=== PATIENT | male | born 1960 | race Caucasian/White ===

== ENCOUNTER 2022-08-28 07:23 | Emergency (ER) | payer BC, SELFPAY ==
[2022-08-28 07:31] VITALS: BP 184/89; PULSE 62; RESP 16; TEMP 37; O2SAT 99
[2022-08-28] MEDS: FLUORESCEIN SOD 1 MG/STRIP (07:45)
[2022-08-28] MEDS: TETRACAINE HCL 0.5% OPHTH SOLN 4 ML BTL 1 DROP (07:45)
--- NOTE | 2022-08-28 07:53 | ED.EYEPROB ---
HPI - Eye Problem General Chief complaint: Eye Problems Stated complaint: FB in right eye Time Seen by Provider: 08/28/22 07:24 Source: patient, RN notes reviewed and old records reviewed Mode of arrival: ambulatory Limitations: no limitations History of Present Illness HPI Narrative: This is a 62 year old male who presents for evaluation of right eye irritation this morning. He states he was sleeping with his CPAP on when he woke up at 230 am feeling right eye irritation and watering right eye. He feels like something is in his right upper lid. He denies blurred vision. He denies any injury. He does not do any work that could cause foreign body to go in eye. Related Data Home Medications Medication Instructions Recorded Confirmed aspirin 81 mg tablet,delayed 81 mg PO DAILY 04/23/19 07/29/19 release (Adult Aspirin Regimen) atorvastatin 80 mg tablet 80 mg PO QPM 04/23/19 07/29/19 clopidogrel 75 mg tablet 75 mg PO DAILY 04/23/19 07/29/19 escitalopram oxalate 10 mg tablet 10 mg PO DAILY 04/23/19 07/29/19 (Lexapro) pantoprazole 40 mg tablet,delayed 40 mg PO QAM 04/23/19 07/29/19 release quinapril 40 mg tablet 40 mg PO DAILY 04/23/19 07/29/19 Allergies Allergy/AdvReac Type Severity Reaction Status Date / Time No Known Allergies Allergy Verified 08/28/22 07:24 Review of Systems Review of Systems: All systems reviewed & are unremarkable except as noted in HPI and below PMFSH Past Medical History Medical History (Updated 08/28/22 @ 08:02 by Harleen Huerta MD) Hypertension Type 2 diabetes mellitus with hyperglycemia Surgical History Surgical History H/O vasectomy Family History Family History Father Family history of heart disease in male family member before age 55 Diabetes mellitus, Onset Age: 56 Family history of obesity, Onset Age: 56 Hypertension, Onset Age: 56 Acute myocardial infarction, Onset Age: 57 Mother Family history of obesity Patient's mother is in good health Other Cerebrovascular accident Family history of cardiovascular disease Family history of congestive heart failure Family history of malignant neoplasm Family history of seizure disorder Social History Social History Smoking status: Current some day smoker Tobacco type: cigars Alcohol intake: current Exam Const: General: healthy appearing, no acute distress and alert Nutritional Appearance: well nourished Orientation/consciousness: patient oriented x3 HENMT: Head: normal to inspection Face and sinus: normal facial exam Eyes: Alignment and Position: alignment normal Conjunctivae: conjunctival abnormality right conjunctival injection Cornea: fluorescein used (negative uptake) Pupils: Equal, round and reactive pupils present EOM: EOMs intact bilaterally Other: no foreign body Resp: Effort & Inspection: normal respiratory effort Skin: General skin exam: normal color Rashes: no rashes Wounds: no wounds Neuro: General: patient oriented x3, moves all extremities and CN's II-XI intact bilaterally Psych: Mental Status: mental status grossly normal Affect: normal affect Attitude: cooperative Course Reevaluation(s) Reevaluation #1: I discussed with patient no foreign body or no abrasion. Will treat with antibiotic ointment Date: 08/28/22 Time: 07:55 Vital Signs Vital signs: Vital Signs Temperature 98.6 F 08/28/22 07:31 Pulse Rate 62 08/28/22 07:31 Respiratory Rate 16 08/28/22 07:31 Blood Pressure 184/89 H 08/28/22 07:31 Pulse Oximetry 99 08/28/22 07:31 Oxygen Delivery Room Air 08/28/22 07:31 Temperature 98.6 F 08/28/22 07:31 Pulse Rate 62 08/28/22 07:31 Respiratory Rate 16 08/28/22 07:31 Blood Pressure 184/89 H 08/28/22 07:31 Pulse Oximetry 99 08/28/22 07:31 Oxyge
== END 2022-08-28 08:08 | disposition home or self-care (01) ==
PROVIDERS: Emergency Provider General Practice; PCP Family Medicine
DX: H10.31 Unspecified acute conjunctivitis, right eye (principal); I10 Essential (primary) hypertension; E11.9 Type 2 diabetes mellitus without complications; F17.290 Nicotine dependence, other tobacco product, uncomplicated; Z79.84 Long term (current) use of oral hypoglycemic drugs; Z79.4 Long term (current) use of insulin; Z79.82 Long term (current) use of aspirin
CPT/HCPCS: 99283

== ENCOUNTER 2022-11-22 09:27 | Outpatient (CLI) | payer BC, SELFPAY ==
[2022-11-22 11:01] LABS: Iron 59 ug/dL (49-181)
[2022-11-22 11:11] LABS: Percent Iron Saturation 16 % (20-50)
== END 2022-11-22 09:28 | disposition home or self-care (01) ==
LOC: ANHLAB 09:29
PROVIDERS: PCP Family Medicine; Visit Provider Internal Medicine Pulmonary Disease
DX: M25.561 Pain in right knee (principal); M25.562 Pain in left knee
CPT/HCPCS: 36415; 82728; 83540; 83550

== ENCOUNTER 2023-08-16 11:35 | Outpatient (CLI) | payer BC, SELFPAY ==
[2023-08-16 13:17] LABS: Basophils Absolute Auto 0.1 K/mm3 (0.0-0.1); Basophils Percent Auto 0.6 % (0.2-1.2); Eosinophils Absolute Auto 0.3 K/mm3 (0-0.3); Eosinophils Percent Auto 3.7 % (0-4.4); Hematocrit 44.2 % (42.0-52.0); Hemoglobin 15.5 g/dL (14.0-18.0); Immature Granulocyte Absolute 0.04 K/mm3 (0.00-0.031); Immature Granulocyte Percent A 0.5 % (0-0.5); Lymphocytes Absolute Auto 2.79 K/mm3 (0.9-3.2); Lymphocytes Percent Auto 32.3 % (18.3-44.2); Mean Corpuscular HGB Conc 35.1 g/dl (32-36); Mean Corpuscular Hemoglobin 31.5 pg (26-34); Mean Corpuscular Volume 89.8 fl (80-100); Mean Platelet Volume 10.1 fl (7.4-10.4); Monocytes Absolute Auto 0.6 K/mm3 (0.1-0.6); Monocytes Percent Auto 6.8 % (2.6-8.5); Neutrophils Absolute Auto 4.9 K/mm3 (1.3-6.7); Neutrophils Percent Auto 56.1 % (45.5-73.1); Platelet Count Result 270 k/mm3 (150-375); Red Blood Count 4.92 M/mm3 (4.6-6.20); Red Cell Distribution Width 13.6 % (11.5-14.5); White Blood Count 8.7 K/mm3 (4.5-10.0)
[2023-08-16 14:12] LABS: MALB Creatinine Ratio 66.1 mg/g (0-30); Microalbumin Urine Random 62.8 mg/L (0-16.7)
[2023-08-16 18:25] LABS: Hemoglobin A1C 11.2 % (<5.7)
== END 2023-08-16 11:36 | disposition home or self-care (01) ==
LOC: ANHLAB 11:39
PROVIDERS: PCP Family Medicine; Visit Provider Family Medicine
DX: E11.65 Type 2 diabetes mellitus with hyperglycemia (principal); I10 Essential (primary) hypertension; Z00.00 Encounter for general adult medical examination without abnormal findings
CPT/HCPCS: 36415; 82043; 83036; 85025

== ENCOUNTER 2024-09-15 09:01 | Emergency (ER) | payer BC, SELFPAY ==
--- NOTE | ~2024-09-15 | XR_ITS ---
XR chest 1V portable 09/15/2024 09:42 Indication: Nausea and vomiting. Shortness of breath. Procedure: AP portable chest Comparison: 07/10/2018 Findings: Heart size normal. No focal air space disease, pulmonary edema, pleural effusion or suspect ed pneumothorax. Impression: 1: No acute cardiopulmonary disease. Reviewed, dictated and finalized at location A. Impression: 1: No acute cardiopulmonary disease.
--- NOTE | ~2024-09-15 | CT_ITS ---
EXAMINATION: CT abdomen pelvis w con DATE: 09/15/2024 13:08 INDICATION: Intractable vomiting TECHNIQUE: Computed tomography (CT) of the abdomen and pelvis was performed without intravenous contr ast. The dose-length product was 668.09 mGy-cm. Automated exposure control and iterative reconstructi on technique were employed. COMPARISON: CT dated 06/22/2013. FINDINGS: Lung bases unremarkable. Heart size normal. No significant pleural or pericardial effusion. Fatty infiltration of the liver. The spleen, pancreas, adrenal glands and kidneys are unremarkable. Gallbladder is present. There is atherosclerosis of the aorta. No aneurysm. Moderate lumbar spondylos is. Nonobstructive bowel gas pattern. IMPRESSION: 1. No acute abdominal abnormality. Reviewed, dictated and finalized at location A.
[2024-09-15 09:07] VITALS: BP 166/84; PULSE 84; RESP 16; TEMP 36.8; O2SAT 98
--- NOTE | 2024-09-15 09:16 | ECG_ITS ---
Test Date: 2024-09-15 09:38:55 Measurements Intervals [place] Rate: 75 P: 32 DC: 199 QRS: -11 QRSD: 101 T: 21 QT: 408 QTc: 458 Interpretive Statements SINUS RHYTHM WITH FREQUENT VENTRICULAR PREMATURE COMPLEXES POSSIBLE RIGHT VENTRICULAR CONDUCTION DELAY [RSR (QR) IN V1/V2] ABNORMAL RHYTHM ECG No previous ECG available for comparison Electronically Signed On 09-16-2024 07:59:08 CDT by Adeel Clark M.D.
--- OUTSIDE RECORDS SUMMARY | 2024-09-15 09:20 | XMS_ITS | Encounter Summary ---
Author Organization [facility] Address [address] [place] [address] Care Team Providers Care Manager Recruitment Name Role Phone Norm Lockett MD Primary Care Provider Reason for Visit * Reason Onset Date Comments Missed Visit 08/23/2022 Due to his misse d visit I left a message on patient's voicemail of the call back number if he wishes to reschedule . Encounter Details Date Type Department Care Team (Late st Contact Info) Description 08/23/2022 Documentation [facility] Physical [facility] [address] [address] Giovana Preston, PT Missed Visit (Due to his missed visit I left a message on patient's voicemail of the call back number if he wishes to reschedule .) Social History Tobacco Use Types Packs/Day Years Used Date Smoking Tobacco: Light Smoker Cigars Smokeless Tobacco: Never Alcohol Use Standard Drinks/Week Comments Yes 0 (1 standard drink = 0.6 oz pur e alcohol) social AUDIT-C Answer Date Recorded Q1: How often do you have a drink containing alc ohol? 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
--- OUTSIDE RECORDS SUMMARY | 2024-09-15 09:20 | XMS_ITS | Referral Summary ---
Author Organization [facility] Address [address] [place] [id number] Care Team Providers Care Computerized Mill Mill Recorder Name Role Phone Norm Lockett MD Primary Care Provider [phone] Encounters Date Type Department Care Team Description 07/10/2024 Telephone [facility] Family Medicine at [address] [place] [address] Norm Lockett MD 1ST no show letter from Last 3 Months Allergies No known active allergies Medications clopidogreL (PLAVIX) 75 mg tablet TAKE 1 TABLET(75 MG) BY MOUTH DAILY 90 tablet 3 3 Active escitalopram (LEXAPRO) 10 mg tablet TAKE 1 TABLET(10 MG) BY MOUTH DAILY 90 tablet 1 4 Active lancets 28 gauge misc Test daily up to 4 times daily or as directed by provider. Brand can be selected per pharmacy coverage and patient proference. 400 each 3 4 Active aspirin 81 mg enteric coated tablet Take 1 tablet (81 mg total) by mouth daily 30 tablet 11 4 01/31/20 25 Active alcohol swabs pads, medicated Test daily up to 4 times daily or as directed by provider. Brand can be selected per pharmacy coverage and patient proference. 400 each 3 4 Active blood-glucose sensor (FreeStyle Priscilla 3 Sensor) device Use for BG monitoring 2 each 3 5 Active insulin glargine (BASAGLAR) 100 unit/mL (3 mL) pen for injection Inject 60 Units under the skin daily 54 mL 3 5 Active pen needle, diabetic (BD Ultra-Fine Short Pen Needle) 31 gauge x /16 needleIndicatio ns:Type 2 diabetes mellitus with hyperglycemia, without long-term current use of insulin (HCC) Use to inject insulin under the skin once daily. 100 each 11 5 Active sildenafiL (VIAGRA) 100 mg tablet 1/2 to 1 30 minutes prior sex 10 tablet 2 5 Active tirzepatide (Mounjaro) 10 mg/0.5 mL pen injector injection Inject 0.5 mL (10 mg total) under the skin once a week 2 mL 11 5 Active omeprazole (PriLOSEC) 20 mg capsule TAKE 1 CAPSULE(20 MG) BY MOUTH DAILY 90 capsule 5 Active atorvastatin (LIPITOR) 80 mg tablet TAKE 1 TABLET(80 MG) BY MOUTH DAILY 100 tablet 1 5 Active lisinopriL (PRINIVIL,ZESTR IL) 20 mg tablet TAKE 1 TABLET(20 MG) BY MOUTH DAILY 100 tablet 5 Active metFORMIN XR (GLUCOPHAGE XR) 500 mg 24 hr tablet TAKE 2 TABLETS(1000 MG) BY MOUTH TWICE DAILY 400 tablet 5 Active Active Problems Problem Noted Date Diagnosed Date Hyperlipidemia 01/05/2024 Microalbuminuria 01/05/2024 Arthralgia of both knees 08/23/2022 Assessment & Plan (08/23/2022 2:25 PM CDT): I have ordered an iron and ferritin level. PLMD (periodic limb movement disorder) 3 Assessment & Plan (02/08/2024 3:19 PM CASE MANAGEMENT COORDINATOR): Asymptomatic Assessment & Plan (12/13/2022 10:17 AM CDT): The patient states that his legs are occasionally restless at night when he sleeps. Assessment & Plan (08/23/2022 2:25 PM CDT): The patient denies that his limbs are waking him up at night. The patient states that his was telling him that his limbs do move however it is getting better with CPAP therapy. Type 2 diabetes mellitus with hyperglycemia 05/30 Assessment & Plan (12/21/2022 4:38 PM CDT): Hba1c was Lab Results Component Value Date HGBA1C 12.1 12/21/2022 today, indicating very poor DM control, with poor insight into the condition. Goal Hba1c under 7 and blood glucose 110-150 was explained Diet and exercise were advised ; low carb diet, advised, as well 20 min daily aerobic / resistance exercise Prevention and treatment of hyypoglcyemia were discussed with the patient Blood glucose monitoring : start CGM with a FSL ( pt could not have it work with his phone, so rx for the sensor and reader were sent ) Adjustment to medications: The need for prandial insulin was explained Stay on Basaglar , 60 units at bedtime Start Humalog, ( Mealtime insulin ) , before lunch and dinner 10 units before lunch and dinner If your sugars are over 200, take 15 units . If your sugars are over 300, take 20 units Continue with Metformin HORACE (obstructive sleep apnea) 12/28/2021 Assessment & Plan (02/08/2024 3:19 PM CASE MANAGEMENT COORDINATOR): Due to the patient not using the CPAP machine for approximately 1 year, I have ordered the patient in-home nocturnal polysomnogram as required by his insurance. The patient would prefer not completing an in-lab study. I will order the patient an auto titrating CPAP after the obstructive sleep apnea diagnosis is reconfirmed. Assessment & Plan (12/13/2022 10:16 AM CDT): The patient will continue to wear CPAP at 13 cm water pressure while sleeping. The patient did have his pressure decreased at his last visit. The patient's DME is [employer]. The patient is agreeable to resume the use of his CPAP. Assessment & Plan (08/23/2022 2:26 PM CDT): Due to the patient's mask leaking I will decrease the patient's CPAP pressure to 13 cm water pressure. The patient's DME is [employer]. Assessment & Plan (04/15/2022 2:31 PM CASE MANAGEMENT COORDINATOR): The patient will complete an in-home nocturnal polysomnogram. The patient would like an auto titrating CPAP after rediagnosis of HORACE and he would prefer to use the Tamtron. History of CVA in adulthood 04/23/2020 Assessment & Plan (06/08/2021 11:10 AM CDT): Continues plavix and aspirin daily. Essential hypertension 04/19/2019 Assessment & Plan (06/23/2022 7:51 AM CDT): Quinapril on backorder. BP borderline elevated today off meds. Will switch to lisinopril 20 mg daily. Assessment & Plan (06/08/2021 11:09 AM CDT): Well controlled. Continue current regimen. Gastroesophageal reflux disease without esophagi tis 04/19/2019 RAF (generalized anxiety disorder) 04/19/2019 Resolved Problems Problem Noted Date Diagnosed Date Resolved Date Hypertension associated with type 2 diabetes mellitus 03/02/2023 03/22/2023 Snoring 01/14/2022 04/15/2022 Assessment & Plan (01/14/2022 4:10 PM CASE MANAGEMENT COORDINATOR): The patient presents with snoring and daytime hypersomnia. I have recommended proceeding with a nocturnal polysomnogram with a split night protocol if necessary and no MSLT. Diabetic neuropathy 08/18/2018 04/21/19 Assessment & Plan (06/08/2021 11:13 AM CDT): Poorly controlled. A1C 13.8. Discussed importance of improving sugars. He will increase levemir to 60 units daily and also start taking his metformin XR 1000 mg twice daily instead of once daily. Stressed importance of checking sugars twice daily. He will send me glucose readings in 2 weeks through [facility]. He will get his eyes checked and have them send me a copy of report. Labs in 3 months per orders. He declines referral to diabetic education. 1800 calorie ADA diet given to patient today. Immunizations Immunization Administration Dates Next Due Influenza, Unspecified 11/29/2023(Deferr ed: Patient Refused),12/17/2022(Deferred: Patient Refused),12/17/2021(Deferred: Patient Refused),11/28/2020(Deferred: Patient Refused),04/23/2020(Deferred: Patient Refused) Tdap 09/10/2015 Social History Tobacco Use Types Packs/Day Years Used Date Smoking Tobacco: Light Smoker Cigars Smokeless Tobacco: Never Tobacco Cessation:Ready to Q uit: No; Counseling Given: No Alcohol Use Standard Drinks/Week Comments Yes 0 (1 standard drink = 0.6 oz pur e alcohol) social AUDIT-C Answer Date Recorded Q1: How often do you have a drink containing alc ohol? Monthly or less 03/26/2024 Q2: How many drinks containi ng alcohol do you have on a typical day when you are drinking? 1 or 2 03/26/2024 Frequency of Binge Drinking Not on file 03/01 PHQ-2 Answer Date Recorded PHQ-2 Total Score (If total score is 3 or more points, staff should administer the PHQ-9) 0 09/20/2023 Sex and Gender Information Value Date Recorded Sex Assigned at Not on file Legal Sex Male 12:40 AM CASE MANAGEMENT COORDINATOR Gender Identity Not on file Sexual Orientation Not on file Last Filed Vital Signs Vital Sign Reading Time Taken Comments Blood Pressure 157/91 04/12/2024 12:45 PM CASE MANAGEMENT COORDINATOR Pulse 67 04/12/2024 12:45 PM CASE MANAGEMENT COORDINATOR Temperature 36.9 C (98.4 F) 04/12/2024 12:45 PM CASE MANAGEMENT COORDINATOR Respiratory Rate 18 03/26/2024 9:16 AM CASE MANAGEMENT COORDINATOR Oxygen Saturation 99% 03/26/2024 9:16 AM CASE MANAGEMENT COORDINATOR Inhaled Oxygen Concentration - - Weight 86.7 kg (191 lb 3.2 oz) 04/12/2024 12:45 PM CASE MANAGEMENT COORDINATOR Height 175.3 cm (5' 9) 04/12/2024 12:45 PM CASE MANAGEMENT COORDINATOR Body Mass Index 28.24 04/12/2024 12:45 PM CASE MANAGEMENT COORDINATOR Plan of Treatment Not on file Procedures Procedure Name Priority Date/Time Associated Diagnosis Comments DIABETIC EYE EXAM Routine 05/22/2024 POCT HEMOGLOBIN A1C Routine 04/12/2024 1 2:52 PM CASE MANAGEMENT COORDINATOR Type 2 diabetes mellitus with hyperglycemia, unspecified whether termination clerk insulin use (HCC) ALBUMIN CREATININE RATIO, URINE Routine 11/03/2023 1:16 PM CDT Type 2 diabetes mellitus without complication, without long-term current use of insulin (HCC) COMPREHENSIVE METABOLIC PANEL Routine 11/03/2023 1:13 PM CDT Type 2 diabetes mellitus with hyperglycemia, without long-term current use of insulin (HCC) LIPID PANEL Routine 11/03/2023 1:13 PM CDT Type 2 diabetes mellitus with hyperglycemia, without long-term current use of insulin (HCC) PSA SCREEN Routine 11/03/2023 1:13 PM CDT Prostate cancer screening COLONOSCOPY Routine 09/21/2023 from Last 3 Months or Most Recently Relevant to Health Maintenance Results * Diabetic Eye Exam (05/22/2024) Historical Provider HEALTH MAINTENANCE Final Result * POCT hemoglobin A1c (04/12/2024 12:52 PM CASE MANAGEMENT COORDINATOR) Hemoglobin A1C, POC 9.5 4.0 - 5.6 % Blood 04/12/2024 12:5 2 PM CASE MANAGEMENT COORDINATOR Aleks Boogie MD POINT OF CARE TEST ORDERABLES F inal Result * (ABNORMAL) Albumin Creatinine Ratio, Urine (11/03/2023 1:16 PM CDT) Creatinine, ur 177 20 - 320 mg/dL [facility] Microalbumin, ur 12.8 See Note: mg/dL [facility] Comment: Reference Range: Reference Range Not established Microalbumin/creat ratio 72(H) <30 mg/g creat [facility] Comment: The ADA defines abnormalities in albumin excretion as follows: Albuminuria Category Result (mg/g creatinine) Normal to Mildly increased <30 Moderately increased 30-299 Severely increased > OR = 300 The ADA recommends that at least two of three specimens collected within a 3-6 month period be abnormal before considering a patient to be within a diagnostic category. Urine 11/03/2023 1:16 PM CDT 11/03/2023 1:23 PM CDT Narrative [facility] - 11/04/2023 12:46 PM CDT FASTING:YES FASTING: YES Norm Lockett MD LAB URINE ORDERABLES Final Re sult Performing Organization Address [facility] de Phone Number [facility] [address] [place] [address] * PSA screen (11/03/2023 1:13 PM CDT) PSA 1.65 < OR = 4.00 ng/mL [facility] Comment: The total PSA value from this assay system is standardized against the WHO standard. The test result will be approximately 20% lower when compared to the equimolar-standardized total PSA (Morgan Rani). Comparison of serial PSA results should be interpreted with this fact in mind. This test was performed using the Siemens chemiluminescent method. Values obtained from different assay methods cannot be used interchangeably. PSA levels, regardless of value, should not be interpreted as absolute evidence of the presence or absence of disease. Blood 11/03/2023 1:13 PM CDT 11/03/2023 1:14 PM CDT Narrative [facility] - 11/05/2023 1:29 AM CDT FASTING:YES FASTING: YES Norm Lockett MD LAB BLOOD ORDERABLES Final Re sult Performing Organization Address [facility] de Phone Number [facility] [address] [place] [address] * Lipid panel (11/03/2023 1:13 PM CDT) Cholesterol 161 <200 mg/dL [facility] HDL 44 > OR = 40 mg/dL [facility] Triglycerides 98 <150 mg/dL [facility] LDL 98 mg/dL (calc) [facility] Comment: Reference range: <100 Desirable range <100 mg/dL for primary prevention; <70 mg/dL for patients with CHD or diabetic patients with > or = 2 CHD risk factors. LDL-C is now calculated using the Anna calculation, which is a validated novel method providing better accuracy than the Friedewald equation in the estimation of LDL-C. Tashi ARREOLA et al. NATALEE. 2013;310(19): 6539-2833 (http://education.GROUNDFLOOR/faq/OSZ140) Chol/HDL ratio 3.7 <5.0 (calc) [facility] Non-HDL, (LDL+VLDL) 117 <130 mg/dL (calc) [facility] Comment: For patients with diabetes plus 1 major ASCVD risk factor, treating to a non-HDL-C goal of <100 mg/dL (LDL-C of <70 mg/dL) is considered a therapeutic option. Blood 11/03/2023 1:13 PM CDT 11/03/2023 1:14 PM CDT Narrative [facility] - 11/05/2023 1:29 AM CDT FASTING:YES FASTING: YES Norm Lockett MD LAB BLOOD ORDERABLES Final Re sult [facility] [address] [place] [address] * (ABNORMAL) Comprehensive metabolic panel (11/03/2023 1:13 PM CDT) [facility] Glucose 243(H) 65 - 99 mg/dL [facility] Comment: Fasting reference interval For someone without known diabetes, a glucose value >125 mg/dL indicates that they may have diabetes and this should be confirmed with a follow-up test. BUN 19 7 - 25 mg/dL [facility] Creatinine 0.89 0.70 - 1.35 mg/dL [facility] eGFR 97 > OR = 60 mL/min/1.7 3m2 [facility] BUN/creat ratio SEE NOTE: 6 - 22 (calc) [facility] Comment: Not Reported: BUN and Creatinine are within reference range. Sodium 135 135 - 146 mmol/L [facility] Potassium, pl 4.2 3.5 - 5.3 mmol/L [facility] Chloride 99 98 - 110 mmol/L [facility] CO2 26 20 - 32 mmol/L [facility] Calcium 9.6 8.6 - 10.3 mg/dL [facility] Protein, sr 6.3 6.1 - 8.1 g/dL [facility] Albumin 4.1 3.6 - 5.1 g/dL [facility] GLOBULIN 2.2 1.9 - 3.7 g/dL (calc) [facility] Alb/glob ratio 1.9 1.0 - 2.5 (calc) [facility] Bilirubin, total 0.7 0.2 - 1.2 mg/dL [facility] Alk phos 65 35 - 144 U/L [facility] AST 19 10 - 35 U/L [facility] ALT (SGPT) 21 9 - 46 U/L [facility] Blood 11/03/2023 1:13 PM CDT 11/03/2023 1:14 PM CDT Narrative [facility] - 11/05/2023 1:29 AM CDT FASTING:YES FASTING: YES Norm Lockett MD LAB BLOOD ORDERABLES Final Re sult [facility] [address] [place] [address] * Colonoscopy (09/21/2023) Anatomical Region Laterality Modality Other Historical Provider ENDOSCOPY PROCEDURES [place] l Result from Last 3 Months or Most Recently Relevant to [place] [address] [place] [address] [facility] Care Teams Computerized Mill Mill Recorder Relationship Specialty Start Date End Date Norm Lockett MD PCP - General Family Medicine 04/09/19
--- OUTSIDE RECORDS SUMMARY | 2024-09-15 09:20 | XMS_ITS | Clinical Summary ---
Author Organization [facility] Address [address] [place] [id number] Care Team Providers Care Match Up Person Name Role Phone Norm Lockett MD Primary Care Provider [phone] Allergies No known active allergies Medications clopidogreL [...] Ultra-Fine Short Pen Needle) 31 gauge x 5/16 needleIndicatio ns:Type 2 diabetes mellitus with hyperglycemia, without long-term current use of insulin (HCC) Use to inject insulin under the skin once daily. 100 each 11 03/26/202 5 Active sildenafiL (VIAGRA) 100 mg tablet 1/2 to 1 30 minutes prior sex 10 tablet 2 Active tirzepatide (Mounjaro) 10 mg/0.5 mL pen [...] TABLET(20 MG) BY MOUTH DAILY 100 tablet Active metFORMIN XR (GLUCOPHAGE XR) 500 mg 24 hr tablet TAKE 2 TABLETS(1000 MG) BY MOUTH TWICE DAILY 400 tablet 5 Active Active Problems Problem Noted Date Diagnosed Date Hyperlipidemia 01/05/2024 Microalbuminuria 01/05/2024 Arthralgia of both knees 08/23/2022 Assessment & Plan (08/23/2022 2:25 PM CDT): I have ordered an iron and ferritin level. PLMD (periodic limb movement disorder) Assessment & Plan (02/08/2024 3:19 PM WATER TAXI BOAT MATE): Asymptomatic Assessment & Plan (12/13/2022 10:17 AM [...] 12/28/2021 Assessment & Plan (02/08/2024 3:19 PM WATER TAX[employer] BOAT MATE): Due to the patient not using the [...] [employer]. Assessment & Plan (04/15/2022 2:31 PM WATER TAXI BOAT MATE): The patient will complete an in-home nocturnal polysomnogram. The patient would like an auto titrating CPAP after rediagnosis of HORACE and he would prefer to use the DME company [employer]. History of CVA in adulthood 04/23/2020 Assessment [...] 04/15/2022 Assessment & Plan (01/14/2022 4:10 PM WATER TAXI BOAT MATE): The patient presents with snoring and daytime [...] me glucose readings in 2 weeks through MyChart. He will get his eyes checked and have them send me a copy of report. Labs in 3 months per orders. He declines referral to diabetic education. 1800 calorie ADA diet given to patient today. Encounters Date Type Department Care Team Description 07/10/2024 Telephone [facility] Family Medicine at [address] [place] [address] Norm Lockett MD 1ST no show letter from Last 3 Months Immunizations Immunization Administration Dates Next Due Influenza, Unspecified 11/29/2023(Deferr ed: Patient Refused),12/17/2022(Deferred: Patient Refused),12/17/2021(Deferred: Patient Refused),11/28/2020(Deferred: Patient Refused),04/23/2020(Deferred: Patient Refused) Tdap 09/10/2015 Surgical History Surgery Date Site/Laterality Comments VASECTOMY 02/29/2004 - 02/27/2005 HERNIA REPAIR 02/29/2008 - 02/27/2009 Medical History Medical History Date Comments Diabetes mellitus (HCC) Neuropathy in diabetes (HCC) Gastric reflux Gout Hypertension Family History Medical History Relation Name Comments Diabetes Father No Known Problems Maternal Grandfather No Known Problems Maternal Grandmother Diabetes Mother No Known Problems Paternal Grandfather No Known Problems Paternal Grandmother Cancer Sister 1 Diabetes Sister 2 No Known Problems Sister 3 Relation Name Status Comments Father Maternal Grandfather Maternal Grandmother Mother Paternal Grandfather Paternal Grandmother Sister 1 Alive Sister 2 Alive Sister 3 Alive Social History Tobacco Use Types Packs/Day Years [...] on file Legal Sex Male 12:40 AM WATER TAXI BOAT MATE Gender Identity Not on file Sexual Orientation Not on file Obstetrics History Last Filed Vital Signs Vital Sign Reading Time Taken Comments Blood Pressure 157/91 04/12/2024 12:45 PM WATER TAXI BOAT MATE Pulse 67 04/12/2024 12:45 PM WATER TAXI BOAT MATE Temperature 36.9 C (98.4 F) 04/12/2024 12:45 PM WATER TAXI BOAT MATE Respiratory Rate 18 03/26/2024 9:16 AM WATER TAXI BOAT MATE Oxygen Saturation 99% 03/26/2024 9:16 AM WATER TAXI BOAT MATE Inhaled Oxygen Concentration - - Weight 86.7 kg (191 lb 3.2 oz) 04/12/2024 12:45 PM WATER TAXI BOAT MATE Height 175.3 cm (5' 9) 04/12/2024 12:45 PM WATER TAXI BOAT MATE Body Mass Index 28.24 04/12/2024 12:45 PM WATER TAXI BOAT MATE Plan of Treatment Health Maintenance Due Date Last Done Comments Hepatitis C Screening 1960 Hepatitis B Screening 05/21/1979 Pneumococcal vaccine <65 (1 of 2 - PCV) 1980 Zoster Vaccine (1 of 2) 05/21/2011 Foot Exam 12/28/2022 12/28/2021, 12/28/2021 Depression Screening 09/19/2024 09/20/2023, 06/29/2022, 06/22/2022, Additional history exists Regular Well Visit/Exam 18-64 09/19/2024 09/20/2023, 06/08/2021 Hemoglobin A1C 10/10/2024 04/12/2024, 11/28, 11/03/2023, Additional history exists Albumin Creatinine Ratio, Urine 11/02/2024 , 08/09/2022 Lipid Panel 11/02/2024 11/03/2023, 05/0 03/2022, 01/04/2022, Additional history exists eGFR 11/02/2024 11/03/2023, 05/0 03/2022, 01/04/2022, Additional history exists Dilated Eye Exam 05/22/2025 05/22/2024, , 07/06/2023 DTaP/Tdap/Td Vaccine (2 - Td or Tdap) 09/09/2025 09/10/2015 Prostate Cancer Screening-PSA 11/02/2025, 06/29/2022, 01/04/2022, Additional history exists Colon Cancer Screening-Colonoscopy 09/20/2028 09/21/2023, 08/01/2017 Colon Cancer Screening-CT Colonography Discontinued 09/21/2023, 08/01/2017 Colon Cancer Screening-DNA Stool Discontinued 09/21/19, 08/01/2017 Colon Cancer Screening-FIT Discontinued 09/21/2023, Colon Cancer Screening-Sigmoidoscopy Discontinued 09/21/2023, 08/01/2017 Influenza Vaccine Discontinued Procedures Procedure Name Priority Date/Time Associated Diagnosis Comments DIABETIC EYE EXAM Routine 05/22/2024 POCT HEMOGLOBIN A1C Routine 04/12/2024 1 2:52 PM WATER TAXI BOAT MATE Type 2 diabetes mellitus with hyperglycemia, unspecified whether usp insulin use (HCC) ALBUMIN CREATININE RATIO, URINE [...] Maintenance Results * Diabetic Eye Exam (05/22/2024) Andrea Provider HEALTH MAINTENANCE Final Result * POCT hemoglobin A1c (04/12/2024 12:52 PM WATER TAXI BOAT MATE) Hemoglobin A1C, POC 9.5 4.0 - 5.6 % Blood 04/12/2024 12:5 2 PM WATER TAXI BOAT MATE Aleks Boogie MD POINT OF CARE TEST [...] ORDERABLES Final Re sult Performing Organization Address [facility] de Phone Number [facility] [address] [place] [address] * PSA screen (11/03/2023 1:13 PM CDT) PSA 1.65 < OR = 4.00 ng/mL [id number] Comment: The total PSA value from [...] ORDERABLES Final Re sult Performing Organization Address [facility] de Phone Number [facility] [address] [place] [address] * Lipid panel (11/03/2023 1:13 PM CDT) Pathologist [facility] Cholesterol 161 <200 mg/dL [facility] Gear[facility] anju [facility] HDL 44 > OR = 40 mg/dL [facility] Gear[facility] Triglycerides 98 <150 mg/dL [facility] Totsy[facility]aran [facility] LDL 98 mg/dL (calc) [facility] Comment: Reference range: <100 Desirable range <100 mg/dL for primary prevention; <70 mg/dL for patients with CHD or diabetic patients with > or = 2 CHD risk factors. LDL-C is now calculated using the Anna calculation, which is a validated novel method providing better accuracy than the Friedewald equation in the estimation of LDL-C. Tashi ARREOLA et al. NATALEE. 2013;310(19): 8002-1372 (http://education.Limecraft/faq/TZL646) Chol/HDL ratio 3.7 <5.0 (calc) [facility] Non-HDL, (LDL+VLDL) 117 <130 mg/dL (calc) [facility] Comment: For patients with diabetes plus 1 major ASCVD risk factor, treating to a non-HDL-C goal of <100 mg/dL (LDL-C of <70 mg/dL) is considered a therapeutic option. Blood 11/03/2023 1:13 PM CDT 11/03/2023 1:14 PM CDT Narrative [facility] - 11/05/2023 1:29 AM CDT FASTING:YES FASTING: YES Norm Lockett MD LAB BLOOD ORDERABLES Final Re sult [id number] [address] [place] [address] * (ABNORMAL) Comprehensive metabolic panel (11/03/2023 1:13 PM CDT) Glucose 243(H) 65 - 99 mg/dL [facility] RahulKaran Amaro Comment: Fasting reference interval For someone without known diabetes, a glucose value >125 mg/dL indicates that they may have diabetes and this should be confirmed with a follow-up test. BUN 19 7 - 25 mg/dL Gustavo TotsyElisaMary anju Amaro Creatinine 0.89 0.70 - 1.35 mg/dL Gura GearMary Amaro eGFR 97 > OR = 60 mL/min/1.7 3m2 [facility] BUN/creat ratio SEE NOTE: 6 - 22 (calc) [facility] Comment: Not Reported: BUN and Creatinine are within reference range. Sodium 135 135 - 146 mmol/L [facility] Potassium, pl 4.2 3.5 - 5.3 mmol/L [facility] Chloride 99 98 - 110 mmol/L [facility] CO2 26 20 - 32 mmol/L [facility] Calcium 9.6 8.6 - 10.3 mg/dL [facility] Protein, sr 6.3 6.1 - 8.1 g/dL [facility] Albumin 4.1 3.6 - 5.1 g/dL [facility] GLOBULIN 2.2 1.9 - 3.7 g/dL (calc) [facility] Alb/glob ratio 1.9 1.0 - 2.5 (calc) [facility] Bilirubin, total 0.7 0.2 - 1.2 mg/dL [facility] Alk phos 65 35 - 144 U/L [facility] AST 19 10 - 35 U/L [facility] ALT (SGPT) 21 9 - 46 U/L [id number]Mary [facility] Blood 11/03/2023 1:13 PM CDT 11/03/2023 1:14 PM CDT Narrative [facility] - 11/05/2023 1:29 AM CDT FASTING:YES FASTING: YES Norm Lockett MD LAB BLOOD ORDERABLES Final Re sult [facility]USTAV[facility]St Am[facility] [address] [place] [address] * Colonoscopy (09/21/2023) Anatomical Region Laterality Modality Other Historical Provider ENDOSCOPY PROCEDURES [place] l Result from Last 3 Months or Most Recently Relevant to Health [place] [address] [facility] [place] [place] [address] [facility] [address] [place] [address] Care Teams Match Up Person Relationship Specialty Start Date End Date Norm Lockett MD PCP - General Family Medicine 04/09/19
--- NOTE | 2024-09-15 09:36 | PCRCNOTE ---
VBG delayed, therapist in Cat Scan with critical pt.
[2024-09-15] MEDS: ONDANSETRON INJ 4 MG/2 ML VIAL IV PUSH ×2 (09:46→11:45)
[2024-09-15] MEDS: SODIUM CHLORIDE 0.9% IV 1,000 ML 999 ML IV CONT ×2 (09:46→09:58)
[2024-09-15 09:50] LABS: Fractional Inspired Oxygen 21 %; HCO3 VBG 18.1 mEq/l (24.0-30.0); PCO2 VBG 35.7 mmHg (42.0-48.0); PO2 VBG 64.8 mmHg (35.0-45.0); pH VBG 7.322 (7.300-7.400)
[2024-09-15 09:57] LABS: Hematocrit 43.7 % (42.0-52.0); Hemoglobin 14.7 g/dL (14.0-18.0); Immature Granulocyte Percent A 0.5 % (0-0.5); Lymphocytes Absolute Auto 1.63 K/mm3 (0.9-3.2); Mean Corpuscular HGB Conc 33.6 g/dl (32-36); Mean Corpuscular Hemoglobin 30.3 pg (26-34); Mean Corpuscular Volume 90.1 fl (80-100); Nucleated Red Blood Cells Absolute Auto 0.000 K/mm3 (0.0-0.012); Nucleated Red Blood Cells Perc 0.0 % (0.0-0.2); Platelet Count Result 265 k/mm3 (150-375); Red Blood Count 4.85 M/mm3 (4.6-6.20); White Blood Count 14.3 K/mm3 (4.5-10.0)
--- NOTE | 2024-09-15 10:03 | ED.GENADULT ---
HPI - General Adult General Chief complaint: Nausea/Vomiting/Diarrhea Stated complaint: n/v Time Seen by Provider: 09/15/24 09:09 History of Present Illness HPI narrative: This is a 64-year-old male presenting to the ED for nausea vomiting. Symptoms started yesterday. He has been unable keep down food or water. He does not have any fevers, chest pain difficulty breathing abdominal pain or urinary symptoms. Patient has not taken his insulin in 2 days. He says he forgot to take it. No other complaints. No sick contacts at home. Related Data Home Medications ?Medication ?Instructions ?Recorded ?Confirmed ?Last Taken ?Type aspirin 81 mg tablet,delayed 81 mg PO DAILY 04/23/19 07/29/19 Unknown History release (Adult Aspirin Regimen) atorvastatin 80 mg tablet 80 mg PO QPM 04/23/19 07/29/19 Unknown History clopidogrel 75 mg tablet 75 mg PO DAILY 04/23/19 07/29/19 Unknown History escitalopram oxalate 10 mg tablet 10 mg PO DAILY 04/23/19 07/29/19 Unknown History (Lexapro) pantoprazole 40 mg tablet,delayed 40 mg PO QAM 04/23/19 07/29/19 Unknown History release quinapril 40 mg tablet 40 mg PO DAILY 04/23/19 07/29/19 Unknown History Allergies Allergy/AdvReac Type Severity Reaction Status Date / Time No Known Allergies Allergy Verified 09/15/24 09:14 [facility] Past Medical History Medical History Type 2 diabetes mellitus with hyperglycemia Hypertension Surgical History Surgical History H/O vasectomy Family History Family History Father Family history of heart disease in male family member before age 55 Diabetes mellitus, Onset Age: 56 Family history of obesity, Onset Age: 56 Hypertension, Onset Age: 56 Acute myocardial infarction, Onset Age: 57 Mother Family history of obesity Patient's mother is in good health Other Cerebrovascular accident Family history of cardiovascular disease Family history of congestive heart failure Family history of malignant neoplasm Family history of seizure disorder Social History Social History Smoking status: Current some day smoker Tobacco type: cigars Alcohol intake: current Exam Narrative: APPEARANCE: No apparent distress. Head: atraumatic. EYES: EOMI, NOSE: Atraumatic NECK: Trachea midline RESPIRATORY: No increased rate of breathing clear to auscultation CARDIOVASCULAR: RRR, no peripheral edema ABDOMINAL: Non-distended soft nontender no guarding rebound MUSCULOSKELETAl: No obvious deformities NEURO: Alert. Moving 4/4 extremities SKIN:: Warm, dry. Normal color PSYCHIATRIC: Normal affect Course Vital Signs Vital signs: Vital Signs Temperature 98.2 F 09/15/24 09:07 Pulse Rate 84 09/15/24 09:07 Respiratory Rate 16 09/15/24 09:07 Blood Pressure 166/84 H 09/15/24 09:07 Pulse Oximetry 98 09/15/24 09:07 Temperature 98.2 F 09/15/24 09:07 Pulse Rate 82 09/15/24 12:47 Respiratory Rate 19 09/15/24 12:47 Blood Pressure 166/97 H 09/15/24 12:47 Pulse Oximetry 99 09/15/24 12:47 Medical Decision Making [facility] Narrative Medical decision making narrative: -Course: 64-year-old male presenting nausea vomiting x1 day. Given fluids and antiemetics. White count slightly elevated at 14. PH of 7.32 via venous blood gas. Metabolic panel showed slight acidosis with a mild anion gap. low concern for DKA/HHS. CT abdomen pelvis unremarkable. No other findings. Patient improved with fluids and antiemetics is now tolerating p.o.. He states that he feels much better. Patient is comfortable going home and resuming his insulin. -DDX includes but is not limited to: Gastroenteritis, hyperglycemia of diabetes, starvation ketosis, gastroparesis -Co-morbidities complicating care: Diabetes Vital Signs Vital Signs: Vital Signs Temperature 98.2 F 09/15/24 09:07 Pulse Rate 84 09/15/24 09:07 Respiratory Rate 16 09/15/24 09:07 Blood Pressure 166/84 H 09/15/24 09:07 Pulse Oximetry 98 09/15/24 09:07 Temperature 98.2 F 09/15/24 09:07 Pulse Rate 82 09/15/24 12:47 Respiratory Rate 19 09/15/24 12:47 Blood Pressure 166/97 H 09/15/24 12:47 Pulse Oximetry 99 09/15/24 12:47 Lab Data 09/15/24 09:48 09/15/24 09:48 Labs: Lab Results 09/15/24 09/15/24 09/15/24 Range/Units 09:46 09:48 11:12 WBC 14.3 H (4.5-10.0) K/mm3 RBC 4.85 (4.6-6.20) M/mm3 Hgb 14.7 (14.0-18.0) g/dL Hct 43.7 (42.0-52.0) % MCV 90.1 (80-100) fl MCH 30.3 (26-34) pg MCHC 33.6 (32-36) g/dl RDW 13.2 (11.5-14.5) % Plt Count 265 (150-375) k/mm3 MPV 9.9 (7.4-10.4) fl Immature Gran % (Auto) 0.5 (0-0.5) % Neut % (Auto) 85.4 H (45.5-73.1) % Lymph % (Auto) 11.4 L (18.3-44.2) % Vance % (Auto) 2.6 (2.6-8.5) % Eos % (Auto) 0.0 (0-4.4) % Baso % (Auto) 0.1 L (0.2-1.2) % Lymph # (Auto) 1.63 (0.9-3.2) K/mm3 Vance # (Auto) 0.4 (0.1-0.6) K/mm3 Eos # (Auto) 0.0 (0-0.3) K/mm3 Baso # (Auto) 0.0 (0.0-0.1) K/mm3 Abs Immat Gran (auto) 0.07 H (0.00-0.031) K/mm3 Absolute Neuts (auto) 12.2 H (1.3-6.7) K/mm3 Absolute Nucleated RBC 0.000 (0.0-0.012) K/mm3 Nucleated RBC % 0.0 (0.0-0.2) % Sodium 137 (137-145) mmol/L Potassium 4.3 (3.4-5.0) mmol/L Chloride 103 (98-107) mmol/L Carbon Dioxide 16 L (22-30) mmol/L Anion Gap 18 H (4-12) mmol/L BUN 30 H (9-20) mg/dL Creatinine 0.83 (0.7-1.3) mg/dL Estim Creat Clear Calc 82 ml/min Estimated GFR > 60 (59 - ) Glucose 341 H (65-110) mg/dL POC Capillary Glucose 343 H (65-105) mg/dl Calcium 9.7 (8.4-10.2) mg/dL Phosphorus 4.9 H (2.5-4.5) mg/dL Magnesium 1.7 (1.6-2.3) mg/dL Total Bilirubin 0.9 (0.2-1.3) mg/dL AST 31 (17-59) U/L ALT 31 (6-50) U/L Alkaline Phosphatase 77 (38-126) U/L Total Protein 7.0 (6.3-8.2) g/dL Albumin 4.1 (3.5-5.1) g/dL Lipase 17 L (23-300) U/L Urine Color Yellow (Yellow) Urine Appearance Clear (Clear) Urine pH 5.0 (5.0-9.0) Ur Specific [place] 1.039 H (1.001-1.035) Urine Protein Trace (Negative) mg/dL Urine Glucose (UA) 3+ H (Negative) mg/dL Urine Ketones 3+ H (Negative) mg/dL Ur Blood (Man) Negative (Negative) Urine Nitrate Negative (Negative) Urine Bilirubin Negative (Negative) Urine Urobilinogen 0.2 (<2.0) mg/dL Leukocyte Esterase Rfl Negative (Negative) JENNIFER/UL Urine RBC 0-2 (0-2) /hpf Urine WBC 0-5 (0-3) /hpf Ur Squamous Epith Cells None seen (Few) /hpf Urine Bacteria None seen /hpf Urine Casts 0-2 Urine Opiates Screen Pending Urine Methadone Screen Pending Ur Barbiturates Screen Pending Ur Phencyclidine Scrn Pending Ur Amphetamine Screen Pending U Benzodiazepines Scrn Pending Urine Cocaine Screen Pending U Cannabinoids Screen Pending Ethyl Alcohol < 10 (<10) mg/dL ABG Data ABG results: 09/15/24 09:47 VBG pH 7.322 VBG pCO2 35.7 L VBG pO2 64.8 H VBG HCO3 18.1 L O2 Delivery Device Room air O2 Liters/Min Not Reportable FiO2 21 Discharge Plan Discharge Clinical Impression: Nausea & vomiting Patient Disposition: Home Condition: Stable Instructions: Antibiotic Form, Acute Nausea and Vomiting (ED) Additional Instructions: You were seen in the emergency department for nausea and vomiting. Please use Reglan for nausea. Please continue to take your insulin. If you develop any new or worsening symptoms such as intractable nausea vomiting abdominal pain fevers return to the ED for re-evaluation. Patient Language: Puerto Rican Prescriptions: New metoclopramide HCl [Reglan] 10 mg tablet 10 mg PO Q6H PRN (Reason: nausea and vomiting) Qty: 30 0RF No Action aspirin [Adult Aspirin Regimen] 81 mg tablet,delayed release (DR/EC) 81 mg PO DAILY clopidogrel 75 mg tablet 75 mg PO DAILY escitalopram oxalate [Lexapro] 10 mg tablet 10 mg PO DAILY pantoprazole 40 mg tablet,delayed release (DR/EC) 40 mg PO QAM quinapril 40 mg tablet 40 mg PO DAILY atorvastatin 80 mg tablet 80 mg PO QPM bacitracin-polymyxin B 500-10,000 unit/gram ointment 0.5 inch RIGHT EYE Q3H 10 Days Qty: 3.5 0RF metformin 500 mg tablet extended release 24hr 1,000 mg PO BID 90 Days Qty: 360 1RF Rx Instructions: WITH MEALS (DME) pen needle, diabetic [BD Ultra-Fine Short Pen Needle] 31 gauge x 5/16 needle See Rx Instructions .ROUTE .MEDSUPPLY Qty: 100 2RF Rx Instructions: use once daily with insulin injections Gwendolyn Geller U-100 Insulin 100 unit/mL (3 mL) insulin pen 50 unit SUB-Q QAM 90 Days Qty: 45 1RF Follow-up/Referrals: Cathryn,Norm Chase MD [Primary Care Provider] -
[2024-09-15 10:10] LABS: Alanine Aminotransferase 31 U/L (6-50); Albumin Level 4.1 g/dL (3.5-5.1); Alkaline Phosphatase 77 U/L (38-126); Anion Gap 18 mmol/L (4-12); Aspartate Amino Transferase 31 U/L (17-59); Bilirubin,Total 0.9 mg/dL (0.2-1.3); Blood Urea Nitrogen 30 mg/dL (9-20); Calcium 9.7 mg/dL (8.4-10.2); Carbon Dioxide 16 mmol/L (22-30); Chloride 103 mmol/L (98-107); Estimated CRCL calculation 82 ml/min; Estimated Glomerular Filt Rate > 60; Glucose 341 mg/dL (65-110); Lipase 17 U/L (23-300); Magnesium 1.7 mg/dL (1.6-2.3); Potassium 4.3 mmol/L (3.4-5.0); Sodium 137 mmol/L (137-145); Total Protein 7.0 g/dL (6.3-8.2)
[2024-09-15 11:25] LABS: Add Urine Microscopic? YES; Appearance Urine Clear (Clear); Glucose Urine UA 3+ mg/dL (Negative); Leukocyte Esterase Ur Negative LEU/UL (Negative); Nitrate Urine Negative (Negative); Non Pathogenic Casts 0-2; Specific Grav Ur 1.039 (1.001-1.035)
[2024-09-15 11:45] VITALS: BP 132/83; PULSE 82; RESP 16; O2SAT 97
[2024-09-15] MEDS: METOCLOPRAMIDE HCL INJ 10 MG/2 ML VIAL IV PUSH (12:44)
[2024-09-15 12:47] VITALS: BP 166/97; PULSE 82; RESP 19; O2SAT 99
[2024-09-15 14:59] VITALS: BP 184/84; PULSE 92; RESP 18; O2SAT 100
[2024-09-15 15:02] LABS: Cannabinoid Screen Urine Negative (Negative)
[2024-09-15 15:23] VITALS: BP 168/94; PULSE 91; RESP 18; O2SAT 97
== END 2024-09-15 15:24 | disposition home or self-care (01) ==
PROVIDERS: Emergency Provider Emergency Medicine; PCP Family Medicine
DX: R11.2 Nausea with vomiting, unspecified (principal); E11.9 Type 2 diabetes mellitus without complications; I10 Essential (primary) hypertension; F17.290 Nicotine dependence, other tobacco product, uncomplicated; Z79.82 Long term (current) use of aspirin; Z79.84 Long term (current) use of oral hypoglycemic drugs; Z79.02 Long term (current) use of antithrombotics/antiplatelets; Z79.4 Long term (current) use of insulin; Z79.899 Other long term (current) drug therapy
CPT/HCPCS: 36415; 71045; 74177; 80053; 80307; 81001; 82077; 82803; 82948; 83690; 83735; 84100; 85025; 93005; 96361; 96374; 96375; 96376; 99284; J2405; J2765; J7030; Q9967

== ENCOUNTER 2024-09-25 07:38 | Outpatient (CLI) | payer BC, SELFPAY ==
--- OUTSIDE RECORDS SUMMARY | 2024-09-25 07:44 | XMS_ITS | Encounter Summary ---
Author Organization [facility] Healthcare Address [address] [place] [address] Care Team Providers Care Russian History Professor Name Role Phone Norm Lockett MD Primary Care Provider [phone] Reason for Visit * Reason Onset Date Comments Missed Visit 08/23/2022 Due to his misse d visit I left a message on patient's voicemail of the call back number if he wishes to reschedule . 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
--- OUTSIDE RECORDS SUMMARY | 2024-09-25 07:44 | XMS_ITS | Referral Summary ---
Author Organization [facility] Address [address] [place] [address] Care Team Providers Care Research Program Coordinator Name Role Phone Norm Lockett MD Primary Care Provider [phone] Encounters Date Type Department Care Team Description 09/21/2024 Telephone [facility] at [address] [phone] Norm Lockett MD Medical Question/Miscellaneous 09/20/2024 Nurse Triage [facility] at [address] [place] [phone] Norm Lockett MD 09/19/2024 Orders Only [facility] Health Information Management [address] [place] [address] Norm Lockett MD 09/17/2024 Nurse Triage [facility] at [address] [phone] Sarah Hoyt RN 09/15/2024 Orders Only [facility] Health Information Management [address] [place] [address] Norm Lockett MD 07/10/2024 Telephone [facility] at [address] [phone] Norm Lockett MD 1ST no show letter from Last 3 Months Allergies No known active allergies Medications clopidogreL (PLAVIX) 75 mg tablet TAKE 1 TABLET(75 MG) BY MOUTH DAILY 90 tablet 3 02/17/20 23 Active escitalopram (LEXAPRO) 10 mg tablet TAKE 1 TABLET(10 MG) BY MOUTH DAILY 90 tablet 1 11/08/19 24 Active lancets 28 gauge misc Test daily up to 4 times daily or as directed by provider. Brand can be selected per pharmacy coverage and patient proference. 400 each 3 12/08/19 24 Active aspirin 81 mg enteric coated tablet Take 1 tablet (81 mg total) by mouth daily 30 tablet 11 01/31/20 24 025 Active alcohol swabs pads, medicated Test daily up to 4 times daily or as directed by provider. Brand can be selected per pharmacy coverage and patient proference. 400 each 3 01/31/20 24 Active blood-glucose sensor (FreeStyle Priscilla 3 Sensor) device Use for BG monitoring 2 each 3 03/05/19 25 Active insulin glargine (BASAGLAR) 100 unit/mL (3 mL) pen for injection Inject 60 Units under the skin daily 54 mL 3 03/26/19 25 Active pen needle, diabetic (BD Ultra-Fine Short Pen Needle) 31 gauge x 5/16 needleIndicati ons:Type 2 diabetes mellitus with hyperglycemia, without long-term current use of insulin (HCC) Use to inject insulin under the skin once daily. 100 each 03/26/19 25 Active sildenafiL (VIAGRA) 100 mg tablet 1/2 to 1 30 minutes prior sex 10 tablet 2 03/26/19 25 Active tirzepatide (Mounjaro) 10 mg/0.5 mL pen injector injection Inject 0.5 mL (10 mg total) under the skin once a week 2 mL 11 04/12/19 25 Active atorvastatin (LIPITOR) 80 mg tablet TAKE 1 TABLET(80 MG) BY MOUTH DAILY 100 tablet 1 05/07/19 25 Active lisinopriL (PRINIVIL,ZEST RIL) 20 mg tablet TAKE 1 TABLET(20 MG) BY MOUTH DAILY 100 tablet 08/01/19 25 Active metFORMIN XR (GLUCOPHAGE XR) 500 mg 24 hr tablet TAKE 2 TABLETS(1000 MG) BY MOUTH TWICE DAILY 400 tablet 08/01/19 25 Active omeprazole (PriLOSEC) 20 mg capsule TAKE 1 CAPSULE(20 MG) BY MOUTH DAILY 90 capsule 09/25/19 25 Active omeprazole (PriLOSEC) 20 mg capsule TAKE 1 CAPSULE(20 MG) BY MOUTH DAILY 90 capsule 04/26/19 25 025 Discontinued Active Problems Problem Noted Date Diagnosed Date Hyperlipidemia 01/05/2024 Microalbuminuria 01/05/2024 Arthralgia of both knees 08/23/2022 Assessment & Plan (08/23/2022 2:25 PM CDT): I have ordered an iron and ferritin level. PLMD (periodic limb movement disorder) Assessment & Plan (02/08/2024 3:19 PM BAG LOADER MACHINE OPERATOR): Asymptomatic Assessment & Plan (12/13/2022 10:17 AM [...] 12/28/2021 Assessment & Plan (02/08/2024 3:19 PM BAG LOADER MACHINE OPERATOR): Due to the patient not using the [...] [employer]. Assessment & Plan (04/15/2022 2:31 PM BAG LOADER MACHINE OPERATOR): The patient will complete an in-home nocturnal [...] 04/15/2022 Assessment & Plan (01/14/2022 4:10 PM BAG LOADER MACHINE OPERATOR): The patient presents with snoring and daytime [...] me glucose readings in 2 weeks through [employer]. 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 Gender Identity Not on file Sexual Orientation Not on file Last Filed Vital Signs Vital Sign Reading Time Taken Comments Blood Pressure 157/91 04/12/2024 12:45 PM BAG LOADER MACHINE OPERATOR Pulse 67 04/12/2024 12:45 PM BAG LOADER MACHINE OPERATOR Temperature 36.9 C (98.4 F) 04/12/2024 12:45 PM BAG LOADER MACHINE OPERATOR Respiratory Rate 18 03/26/2024 9:16 AM BAG LOADER MACHINE OPERATOR Oxygen Saturation 99% 03/26/2024 9:16 AM BAG LOADER MACHINE OPERATOR Inhaled Oxygen Concentration - - Weight 86.7 kg (191 lb 3.2 oz) 04/12/2024 12:45 PM BAG LOADER MACHINE OPERATOR Height 175.3 cm (5' 9) 04/12/2024 12:45 PM BAG LOADER MACHINE OPERATOR Body Mass Index 28.24 04/12/2024 12:45 PM BAG LOADER MACHINE OPERATOR Plan of Treatment Not on file Procedures Procedure Name Priority Date/Time Associated Diagnosis Comments SCAN - RADIOLOGY/IMAGING 09/19/2024 9:18 PM CDT SCAN - RADIOLOGY/IMAGING 09/15/2024 DIABETIC EYE EXAM Routine 05/22/2024 POCT HEMOGLOBIN A1C Routine 04/12/2024 1 2:52 PM BAG LOADER MACHINE OPERATOR Type 2 diabetes mellitus with hyperglycemia, unspecified whether long filler cigar roller machine insulin use (HCC) ALBUMIN CREATININE RATIO, URINE [...] Recently Relevant to Health Maintenance Results * SCAN - RADIOLOGY/IMAGING (09/19/2024 9:18 PM CDT) Anatomical Region Laterality Modality Other Norm Lockett MD Final Result * SCAN - RADIOLOGY/IMAGING (09/15/2024) Anatomical Region Laterality Modality Other Norm Lockett MD Final Result * Diabetic Eye Exam (05/22/2024) Andrea Calderon MD HEALTH MAINTENANCE Final Result * POCT hemoglobin A1c (04/12/2024 12:52 PM BAG LOADER MACHINE OPERATOR) Hemoglobin A1C, POC 9.5 4.0 - 5.6 % Blood 04/12/2024 12:5 2 PM BAG LOADER MACHINE OPERATOR Aleks Boogie MD POINT OF CARE TEST [...] MD LAB URINE ORDERABLES Final Re sult [facility] [address] [address] * PSA screen (11/03/2023 1:13 PM CDT) [facility] PSA 1.65 < OR = 4.00 ng/mL [employer] [facility] Comment: The total PSA value from this [...] MD LAB BLOOD ORDERABLES Final Re sult [facility] [place] [address] [place] [address] * Lipid panel (11/03/2023 1:13 PM CDT) [facility] Cholesterol 161 <200 mg/dL [employer] [facility] HDL 44 > OR = 40 mg/dL [employer] [facility] Triglycerides 98 <150 mg/dL [employer] [facility] LDL 98 mg/dL (calc) [employer] [facility] Comment: Reference range: <100 Desirable range <100 mg/dL for primary prevention; <70 mg/dL for patients with CHD or diabetic patients with > or = 2 CHD risk factors. LDL-C is now calculated using the Tashi-Irma calculation, which is a validated novel method providing better accuracy than the Friedewald equation in the estimation of LDL-C. Tashi ARREOLA et al. NATALEE. 2013;310(19): 7767-7183 (http://education.[employer]/faq/RKS765) Chol/HDL ratio 3.7 <5.0 (calc) [employer] [facility] Non-HDL, (LDL+VLDL) 117 <130 mg/dL (calc) [facility] Comment: For patients with diabetes plus 1 major ASCVD risk factor, treating to a non-HDL-C goal of <100 mg/dL (LDL-C of <70 mg/dL) is considered a therapeutic option. Blood 11/03/2023 1:13 PM CDT 11/03/2023 1:14 PM CDT Narrative [facility] - 11/05/2023 1:29 AM CDT FASTING:YES FASTING: YES us Norm Lockett MD LAB BLOOD ORDERABLES Final Re sult [facility] [address] [place] [address] * (ABNORMAL) Comprehensive metabolic panel (11/03/2023 1:13 PM CDT) Glucose 243(H) 65 - 99 mg/dL [facility] Comment: Fasting reference interval For someone without known diabetes, a glucose value >125 mg/dL indicates that they may have diabetes and this should be confirmed with a follow-up test. BUN 19 7 - 25 mg/dL [facility] Creatinine 0.89 0.70 - 1.35 mg/dL [facility] eGFR 97 > OR = 60 mL/min/1.7 3m2 [facility] BUN/creat ratio SEE NOTE: 6 - 22 (calc) [facility] Comment: Not Reported: BUN and Creatinine are within reference range. Sodium 135 135 - 146 mmol/L [facility] Potassium, pl 4.2 3.5 - 5.3 mmol/L [facility] Chloride 99 98 - 110 mmol/L [facility] CO2 26 20 - 32 mmol/L [facility] Calcium 9.6 8.6 - 10.3 mg/dL [facility] Protein, sr 6.3 6.1 - 8.1 g/dL [facility] Albumin 4.1 3.6 - 5.1 g/dL [facility] GLOBULIN 2.2 1.9 - 3.7 g/dL (calc) [facility] Alb/glob ratio 1.9 1.0 - 2.5 (calc) [facility] Bilirubin, total 0.7 0.2 - 1.2 mg/dL [facility] Alk phos 65 35 - 144 U/L [facility] AST 19 10 - 35 U/L [facility] ALT (SGPT) 21 9 - 46 U/L [facility] Blood 11/03/2023 1:13 PM CDT 11/03/2023 1:14 PM CDT Narrative [facility] - 11/05/2023 1:29 AM CDT FASTING:YES FASTING: YES Norm Lockett MD LAB BLOOD ORDERABLES Final Re sult [facility] [address] [place] [address] * Colonoscopy (09/21/2023) Anatomical Region Laterality Modality Other Historical Provider ENDOSCOPY PROCEDURES [place] l Result from Last 3 Months or Most Recently Relevant to Health Maintenance [place] [address] [facility] [employer] [employer] [id number] (Work) [address] [place] [address] Care Teams Research Program Coordinator Relationship Specialty Start Date End Date Norm Lockett MD PCP - General Family Medicine 04/09/19
--- OUTSIDE RECORDS SUMMARY | 2024-09-25 07:44 | XMS_ITS | Encounter Summary ---
Author Organization [facility] Healthcare Address [address] [place] [address] Care Team Providers Care Ladle Filler Name Role Phone Norm Lockett MD Primary Care Provider [phone] Reason for Visit * Reason Onset Date Comments Dizziness 09/20/2024 Encounter Details Date Type Department Care Team (Late st Contact Info) Description 09/20/2024 Nurse Triage [facility] Medical Group Family Medicine at [address] [place] [address] Norm Lockett MD [address] [place] [address] [address] [place] [address] Social History Tobacco Use Types Packs/Day Years [...] on file 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 Gender Identity Not on file Sexual Orientation Not on file documented as of this encounter Miscellaneous Notes * Telephone Encounter - Magui Rausch - 09/21/2024 8:25 AM CDT Will be seen at 09/[address] Lockett * Telephone Encounter - Magui Rausch - 09/21/2024 8:10 AM CDT Called NO answer * Telephone Encounter - Magui Rausch - 09/20/2024 3:20 PM CDT Called LVM to call me back I could get him in to see Lili tomorrow * Telephone Encounter - Denice Meyer RN - 09/20/2024 1:08 PM CDT Reason for Conversation Dizziness Background Patient calling into sewer stating that he has had a brief episode of dizziness yesterday. States he was at [employer] standing in line when he abruptly became dizzy - states room was spinning and he had to hold onto something; lasted 1-2 minutes before subsiding. He mentioned that he was sick on Tuesday with abdominal discomfort, nausea and vomiting that he describes as violent vomiting. He was checked out at [facility] with no significant findings. That has since subsided and he hasbeen able to eat and drink without nausea/vomiting. He also mentioned that he did miss a few doses of his insulin and PO medications prior to that but that has occurred in the past with no issues. Noreports of ear ache or discomfort. Denies dizziness now. sewer recommends he be seen today. Patient would prefer in office, but if not, may go to as a walk in appointment. Advised message would be forwarded to office to see if he can be seen today or tomorrow. Advised to stay hydrated with fluids and change positions slowly. Call back with further questions or concerns. Please reach out to patient regarding intermittent dizziness that he has had over the past few days. Sending HP in case he can be fit into the office schedule. Declined scheduling at but may go aswalk in if unable to be seen in the office. He also has a f/u with Dr. Lockett 09/26. Disposition No disposition on file. Reason for Disposition No Reason for Disposition on file. No Initial Assessment on file. No Additional Information on file. Protocols Used No protocols used. * Telephone Encounter - Denice Meyer RN - 09/20/2024 1:04 PM CDT Regarding: dizziness ----- Message from Diana H sent at 09/20/2024 1:02 PM CDT ----- Symptom Based Call Chief Complaint(s): dizziness Duration: 4 What type of symptom(s) is the patient experiencing? Red Flag. Is the patient concerned they are experiencing a medical emergency requiring an ambulance? No Additional Comments: See 7. scientific advisor encounter. Patient said he has intermittent dizziness now. No other symptoms noted. Does message need to be routed? Yes-Action Needed documented in this encounter Plan of Treatment Not on file documented as of this encounter Visit Diagnoses Not on filedocumented in this encounter Care Teams Ladle Filler Relationship Specialty Start Date End Date Norm Lockett MD PCP - General Family Medicine 04/09/19 documented as of this encounter
--- OUTSIDE RECORDS SUMMARY | 2024-09-25 07:44 | XMS_ITS | Clinical Summary ---
Author Organization [facility] Address [address] [place] [address] Care Team Providers Care Asbestos Coverer Name Role Phone Norm Lockett MD Primary Care Provider [phone] Allergies No known active allergies Medications clopidogreL [...] the skin once daily. 100 each 11 20 25 Active sildenafiL (VIAGRA) 100 mg tablet [...] disorder) Assessment & Plan (02/08/2024 3:19 PM PATCH MACHINE OPERATOR): Asymptomatic Assessment & Plan (12/13/2022 [...] 12/28/2021 Assessment & Plan (02/08/2024 3:19 PM PATCH MACHINE OPERATOR): Due to the patient not [...] [employer]. Assessment & Plan (04/15/2022 2:31 PM PATCH MACHINE OPERATOR): The patient will complete an in-home nocturnal polysomnogram. The patient would like an auto titrating CPAP after rediagnosis of HORACE and he would prefer to use the [employer] company [employer]. History of CVA in adulthood 04/23/2020 Assessment [...] 04/15/2022 Assessment & Plan (01/14/2022 4:10 PM PATCH MACHINE OPERATOR): The patient presents with snoring [...] Type Department Care Team Description 09/21/2024 Telephone [facility] Medical [facility] Family Medicine at [address] [place] [address] Norm Lockett MD Medical Question/Miscellaneous 09/20/2024 Nurse Triage [facility] at [address] [place] [phone] Norm Lockett MD 09/19/2024 Orders Only [facility] Health Information Management [address] [place] [address] Norm Lockett MD 09/17/2024 Nurse Triage [facility] at [address] [phone] Sarah Hoyt RN 09/15/2024 Orders Only [facility] Health Information Management [address] [place] [address] Norm Lockett MD 07/10/2024 Telephone [facility] at [address] [place] [phone] Norm Lockett MD 1ST no show letter [...] on file Legal Sex Male 12:40 AM PATCH MACHINE OPERATOR Gender Identity Not on file Sexual Orientation Not on file Obstetrics History Last Filed Vital Signs Vital Sign Reading Time Taken Comments Blood Pressure 157/91 04/12/2024 12:45 PM PATCH MACHINE OPERATOR Pulse 67 04/12/2024 12:45 PM PATCH MACHINE OPERATOR Temperature 36.9 C (98.4 F) 04/12/2024 12:45 PM PATCH MACHINE OPERATOR Respiratory Rate 18 03/26/2024 9:16 AM PATCH MACHINE OPERATOR Oxygen Saturation 99% 03/26/2024 9:16 AM PATCH MACHINE OPERATOR Inhaled Oxygen Concentration - - Weight 86.7 kg (191 lb 3.2 oz) 04/12/2024 12:45 PM PATCH MACHINE OPERATOR Height 175.3 cm (5' 9) 04/12/2024 12:45 PM PATCH MACHINE OPERATOR Body Mass Index 28.24 04/12/2024 12:45 PM PATCH MACHINE OPERATOR Plan of Treatment Health Maintenance Due Date [...] HEMOGLOBIN A1C Routine 04/12/2024 1 2:52 PM PATCH MACHINE OPERATOR Type 2 diabetes mellitus with hyperglycemia, unspecified whether senior care insulin use (HCC) ALBUMIN CREATININE RATIO, URINE [...] Final Result * Diabetic Eye Exam (05/22/2024) us Andrea Calderon MD HEALTH MAINTENANCE Final Result * POCT hemoglobin A1c (04/12/2024 12:52 PM PATCH MACHINE OPERATOR) Hemoglobin A1C, POC 9.5 4.0 - 5.6 % Blood 04/12/2024 12:5 2 PM PATCH MACHINE OPERATOR us Aleks Boogie MD POINT OF CARE TEST [...] Lockett MD LAB URINE ORDERABLES Final Re [facility] Performing Organization Address [facility] Co de Phone Number [facility] [address] [place] [address] * PSA screen (11/03/2023 1:13 PM CDT) Pathologist [facility] PSA 1.65 < OR = 4.00 ng/mL [facility] Comment: The total PSA value from [...] Lockett MD LAB BLOOD ORDERABLES Final Re [facility] Performing Organization Address [facility] Co de Phone Number [facility] [address] [place] [address] * Lipid panel (11/03/2023 1:13 PM CDT) Cholesterol 161 <200 mg/dL [facility] HDL 44 > OR = 40 mg/dL [facility] Triglycerides 98 <150 mg/dL [facility] LDL 98 mg/dL (calc) [facility] Comment: Reference range: <100 Desirable range <100 mg/dL for primary prevention; <70 mg/dL for patients with CHD or diabetic patients with > or = 2 CHD risk factors. LDL-C is now calculated using the Tashi-Solis calculation, which is a validated novel method providing better accuracy than the Friedewald equation in the estimation of LDL-C. Tashi SS et al. NATALEE. 2013;310(19): 1689-9401 (http://education.[employer]/faq/HJS482) Chol/HDL ratio 3.7 <5.0 (calc) [facility] Non-HDL, (LDL+VLDL) 117 <130 mg/dL (calc) [facility] Comment: For patients with diabetes plus 1 major ASCVD risk factor, treating to a non-HDL-C goal of <100 mg/dL (LDL-C of <70 mg/dL) is considered a therapeutic option. Blood 11/03/2023 1:13 PM CDT 11/03/2023 1:14 PM CDT Narrative [facility] - 11/05/2023 1:29 AM CDT FASTING:YES FASTING: YES Norm Lockett MD LAB BLOOD ORDERABLES Final Re sult [facility] [address] [place] [address] * (ABNORMAL) Comprehensive metabolic panel (11/03/2023 1:13 PM CDT) Glucose 243(H) 65 - 99 mg/dL [facility] Comment: Fasting reference interval For someone without known diabetes, a glucose value >125 mg/dL indicates that they may have diabetes and this should be confirmed with a follow-up test. BUN 19 7 - 25 mg/dL [facility] Creatinine 0.89 0.70 - 1.35 mg/dL [facility] eGFR 97 > OR = 60 mL/min/1.7 3m2 [facility] BUN/creat ratio SEE NOTE: 6 - 22 (calc) [facility] Comment: Not Reported: BUN and Creatinine are within reference range. Sodium 135 135 - 146 mmol/L [facility] Potassium, pl 4.2 3.5 - 5.3 mmol/L [facility] Chloride 99 98 - 110 mmol/L [facility] CO2 26 20 - 32 mmol/L [facility] Calcium 9.6 8.6 - 10.3 mg/dL [facility] Protein, sr 6.3 6.1 - 8.1 g/dL [facility] Albumin 4.1 3.6 - 5.1 g/dL [facility] GLOBULIN 2.2 1.9 - 3.7 g/dL (calc) [facility] Alb/glob ratio 1.9 1.0 - 2.5 (calc) [facility] Bilirubin, total 0.7 0.2 - 1.2 mg/dL [facility] Alk phos 65 35 - 144 U/L [facility] AST 19 10 - 35 U/L [facility] ALT (SGPT) 21 9 - 46 U/L [facility] Blood 11/03/2023 1:13 PM CDT 11/03/2023 1:14 PM CDT Narrative [facility] - 11/05/2023 1:29 AM CDT FASTING:YES FASTING: YES Norm Lockett MD LAB BLOOD ORDERABLES Final Re sult [facility] [address] [place] [address] * Colonoscopy (09/21/2023) Anatomical Region Laterality Modality Other Historical Provider ENDOSCOPY PROCEDURES [place] l Result from Last 3 Months or Most Recently Relevant to Health [place] [address] [facility] [employer] Care Teams Asbestos Coverer Relationship Specialty Start Date End Date Norm Lockett MD PCP - General Family Medicine 04/09/19
[2024-09-25 08:41] LABS: Hematocrit 41.4 % (42.0-52.0); Hemoglobin 13.8 g/dL (14.0-18.0); Immature Granulocyte Percent A 0.6 % (0-0.5); Lymphocytes Absolute Auto 3.17 K/mm3 (0.9-3.2); Mean Corpuscular HGB Conc 33.3 g/dl (32-36); Mean Corpuscular Hemoglobin 30.5 pg (26-34); Mean Corpuscular Volume 91.4 fl (80-100); Nucleated Red Blood Cells Absolute Auto 0.000 K/mm3 (0.0-0.012); Nucleated Red Blood Cells Perc 0.0 % (0.0-0.2); Platelet Count Result 217 k/mm3 (150-375); Red Blood Count 4.53 M/mm3 (4.6-6.20); White Blood Count 8.4 K/mm3 (4.5-10.0)
[2024-09-25 08:48] LABS: Hemoglobin A1C 12.9 % (<5.7)
[2024-09-25 09:10] LABS: Alanine Aminotransferase 32 U/L (6-50); Albumin Level 3.7 g/dL (3.5-5.1); Alkaline Phosphatase 56 U/L (38-126); Anion Gap 6 mmol/L (4-12); Aspartate Amino Transferase 29 U/L (17-59); Bilirubin,Total 0.4 mg/dL (0.2-1.3); Blood Urea Nitrogen 25 mg/dL (9-20); Calcium 9.1 mg/dL (8.4-10.2); Carbon Dioxide 24 mmol/L (22-30); Chloride 103 mmol/L (98-107); Cholesterol 135 mg/dL (0-200); Estimated Glomerular Filt Rate > 60; Glucose 291 mg/dL (65-110); HDL Direct 45 mg/dL; Potassium 4.1 mmol/L (3.4-5.0); Sodium 133 mmol/L (137-145); Total Protein 6.3 g/dL (6.3-8.2); Triglycerides 109 mg/dL (<150)
[2024-09-25 09:57] LABS: MALB Creatinine Ratio 68.9 mg/g (0-30)
== END 2024-09-25 07:39 | disposition home or self-care (01) ==
PROVIDERS: PCP Family Medicine; Visit Provider Family Medicine
DX: Z00.00 Encounter for general adult medical examination without abnormal findings (principal); E11.65 Type 2 diabetes mellitus with hyperglycemia; E78.2 Mixed hyperlipidemia; I10 Essential (primary) hypertension
CPT/HCPCS: 36415; 80053; 80061; 82043; 83036; 85025

== ENCOUNTER 2024-12-07 11:42 | Emergency (ER) | payer BC, SELFPAY ==
--- NOTE | ~2024-12-07 | CT_ITS ---
EXAMINATION: CT brain wo con, 12/07/2024 13:00 CDT HISTORY: N/V/Dizziness COMPARISON: No comparisons available. Technique: Axial images obtained of the brain without contrast. One or more of the following dose reduction techniques were used: automated exposure control, adjustment of the mA and/or kV according to patient size, use of iterative reconstruction technique. 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 There are remote bilateral cerebellar lacunar infarcts. No acute infarct or hemorrhage. No midline shift or mass effect. No extra-axial fluid collections. Mastoid air cells unremarkable. Sinuses and orbits unremarkable. No acute fracture. No significant facial or scalp soft tissue swelling evident. No radiopaque foreign body is seen. Impression: 1.No acute intracranial abnormality. Reviewed, dictated and finalized at location P. Impression: 1.No acute intracranial abnormality.
--- NOTE | ~2024-12-07 | CT_ITS ---
Exam: CT abdomen and pelvis with contrast Clinical History: [Nausea and vomiting ] Comparison: [ 09/15/2024] Technique: Multiple axial CT images of the abdomen and pelvis were obtained with IV contrast. Sagittal and coronal reformatted images were obtained. FINDINGS: Lung bases: [Small opacities in the lower lungs. ] Liver: [ No mass.] [ No intrahepatic biliary duct dilatation.] Gallbladder: [ No wall thickening or stones.] Common bile duct: [ Normal caliber.] [ No stones.] Spleen: [ Within normal limits.] Pancreas: [ No mass. No pancreatic fluid collection.] Adrenals: [ No masses.] Kidneys: [ No masses. No hydronephrosis.][ ] Lymph nodes: [ No adenopathy in the abdomen or pelvis.] Stomach, small bowel and colon: Thickening of the ac of the duodenum and proximal and mid small bowel. Peritoneum cavity: [ No mesenteric fat stranding or fluid.] Bladder: Prostate gland is mildly enlarged. Bladder is unremarkable. Osseous structures: [ No acute fracture or destructive lesion.] [ Multilevel degenerative change in the visualized spine.] Abdominal aorta: [ No aneurysm.] Additional findings: IMPRESSION: 1. Thickening of the ac of the duodenum and proximal and mid small bowel. Differential includes incomplete bowel wall thickening versus an inflammatory/infectious process. Other etiologies are less likely. Recommend follow-up to resolution. 2. Partially gland is enlarged and heterogeneous. Reviewed, dictated and finalized at location Q. IMPRESSION: 1. Thickening of the ac of the duodenum and proximal and mid small bowel. Di fferential includes incomplete bowel wall thickening versus an inflammatory/inf ectious process. Other etiologies are less likely. Recommend follow-up to resol ution. 2. Partially gland is enlarged and heterogeneous.
[2024-12-07 11:52] VITALS: BP 152/89; PULSE 72; RESP 18; TEMP 36.4; O2SAT 98
[2024-12-07 12:20] LABS: Fractional Inspired Oxygen 21 %; HCO3 VBG 22.0 mEq/l (24.0-30.0); PCO2 VBG 39.9 mmHg (42.0-48.0); PO2 VBG 36.8 mmHg (35.0-45.0); pH VBG 7.360 (7.300-7.400)
[2024-12-07 12:21] LABS: Hematocrit 44.5 % (42.0-52.0); Hemoglobin 15.4 g/dL (14.0-18.0); Immature Granulocyte Percent A 0.7 % (0-0.5); Lymphocytes Absolute Auto 2.02 K/mm3 (0.9-3.2); Mean Corpuscular HGB Conc 34.6 g/dl (32-36); Mean Corpuscular Hemoglobin 30.8 pg (26-34); Mean Corpuscular Volume 89.0 fl (80-100); Nucleated Red Blood Cells Absolute Auto 0.000 K/mm3 (0.0-0.012); Nucleated Red Blood Cells Perc 0.0 % (0.0-0.2); Platelet Count Result 272 k/mm3 (150-375); Red Blood Count 5.00 M/mm3 (4.6-6.20); White Blood Count 10.3 K/mm3 (4.5-10.0)
--- NOTE | 2024-12-07 12:24 | PC.NURSE ---
Pt could not provide a urine sample at this time. Pt advised to press call light when they feel like they can provide a urine sample.
--- NOTE | 2024-12-07 12:27 | ED_ITS ---
HPI - Recheck/Abnormal Lab/Rx General Chief Complaint: Recheck/Abnormal Lab/Rx Stated Complaint: n/v, hyperglycemia Time Seen by Provider: 12/07/24 11:50 Source: patient and family Mode of arrival: ambulatory Limitations: no limitations History of Present Illness HPI narrative: This is a 64 year old male pt with PMH of DM2, HTN, HLD and GERD who comes to the ER as he is concerned he may be in DKA. 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 Ever Garcia at [facility]. Pt gives the hx that he has been off with mild dizziness all year. He states this has been chronic and has not changed. In August he was hospitalized with DKA and N/V with dizziness and was discharged home without incident. He notes that since then the feeling of being off has continued and for the past two days, he has had N/V. No diarrhea or hematemesis. He has not had any diarrhea, melanous appearing stools or hematochezia. Pt notes that one year ago he had similar symptoms after eating a [id number] and notes that he did the same this week. Pt's spouse is at the bedside and adds to history that the pt does not follow a diabetic diet and drinks only diet soda and no water and he is not always compliant with therapies. His glucose has been running in the 400s for the past few days. Patient spoke with the water pump operator denies symptoms to the emergency room is with concern for potential DKA. Pt appears very anxious upon entry to the room. He has not been able to identify anything that makes the discomfort worse or better and it is constant, but he cannot identify any one focal area of pain or discomfort on the abdomen. He also has no focal weakness or neglect. Related Data Home Medications ?Medication ?Instructions ?Recorded ?Confirmed ?Last Taken ?Type aspirin 81 mg tablet,delayed 81 mg PO DAILY 04/23/19 0 07/29/19 Unknown History release (Adult Aspirin Regimen) atorvastatin 80 mg tablet 80 mg PO QPM 04/23/19 Unknown History clopidogrel 75 mg tablet 75 mg PO DAILY 04/23/1906/30 Unknown History escitalopram oxalate 10 mg tablet 10 mg PO DAILY 04/2307/29/19 Unknown History (Lexapro) pantoprazole 40 mg tablet,delayed 40 mg PO QAM 0 07/29/19 Unknown History release quinapril 40 mg tablet 40 mg PO DAILY 04/23/1906/30 Unknown History Allergies Allergy/AdvReac Type Severity Reaction Status Date / Time No Known Allergies Allergy Verified 12/07/24 11:55 Review of Systems 2 Review of Systems: All systems reviewed & are unremarkable except as noted in HPI and below PMFSH Past Medical History Medical History Type 2 diabetes mellitus with hyperglycemia Hypertension Surgical History Surgical History H/O vasectomy Family History Family History Father Family history of heart disease in male family member before age 55 Diabetes mellitus, Onset Age: 56 Family history of obesity, Onset Age: 56 Hypertension, Onset Age: 56 Acute myocardial infarction, Onset Age: 56 Mother Family history of obesity Patient's mother is in good health Other Cerebrovascular accident Family history of cardiovascular disease Family history of congestive heart failure Family history of malignant neoplasm Family history of seizure disorder Social History Social History Smoking status: Current some day smoker Tobacco type: cigars Alcohol intake: current Exam 2 Const: General: healthy appearing, no acute distress and alert; No ill appearing Nutritional Appearance: well nourished O rientation/consciousness: patient oriented x3 Limitations: no limitations HENMT: Head: normal to inspection, no contusions, no hematomas and no lacerations Face/Nose/Sinus: Normal external nose present Mouth: Yes Normal oral and palatal mucosa present Throat: posterior oropharynx normal Eyes: Conjunctivae: conjunctivae normal Neck: Neck: normal visual inspection and no lymphadenopathy Chest: Chest palpation & inspection: normal inspection of the chest Resp: Effort & Inspection: normal respiratory effort Auscultation: clear to auscultation bilaterally Cardio: Rate: regular rate Rhythm: regular rhythm Heart sounds: no murmurs GI: Inspection: non-distended GI Palp: Yes Soft to palpation, No Tenderness to palpation present (GI), No Guarding due to palpation present (GI), No Rigid due to palpation, No Hernia present and No Palpable mass present A uscultation: normal bowel sounds Back/Spine/Pelvis: Back: no CVA tenderness Skin: General skin exam: normal color Rashes: no rashes Wounds: no wounds Neuro: General: patient oriented x3, moves all extremities and no focal motor deficits Speech: normal speech Gait exam (Neuro): Normal gait present Extrem: General: normal to inspection, no clubbing, cyanosis or edema and no pedal edema Other: Freely and equally moving all extremities well without deficit. Psych: Mental Status: mental status grossly normal Affect: normal affect Course Course Emergency Course: Labs, EKG and imaging obtained. Pt treated with zofran and IVF. Labs are remarkable for sodium of 132, however when compared to store cle previous sodium levels it is at his baseline. In addition patient's magnesium low 1.5. He is given 1 g Mag rider. Remainder of labs are unremarkable. Patient is not in DKA. Pt's CT Head is negative for any acute findings. CT Scan of the abdomen and pelvis shows duodenal and small bowel inflammation/infecction. Pt is not meeting sepsis criteria and after receiving IVF, Zofran and Magnesium he is feeling better. Shared decision making was performed at the bedside with the pt and his spouse and he is comfortable with discharge. Pt advised to eat a bland diet, cut out any acidic foods and he will be referred to GI for follow up and discharged home on meds of Zofran, Protonix, Doxy and Flagyl. He was given a p.o. challenge and was able to keep food down here in the ER. Patient referred to Dr. Garcia from GI for outpatient evaluation as I do believe he would benefit from a scope. Patient is in agreement this plan of care. Reevaluation(s) Date: 12/07/24 Time: 13:30 Vital Signs Vital signs: Vital Signs Temperature 97.6 F 12/07/24 11:52 Pulse Rate 72 12/07/24 11:52 Respiratory Rate 18 12/07/24 11:52 Blood Pressure 152/89 H 12/07/24 11:52 Pulse Oximetry 98 12/07/24 11:52 Oxygen Delivery Room Air 12/07/24 11:52 Temperature 97.6 F 12/07/24 11:52 Pulse Rate 72 12/07/24 11:52 Respiratory Rate 18 12/07/24 11:52 Blood Pressure 152/89 H 12/07/24 11:52 Pulse Oximetry 98 12/07/24 11:52 Oxygen Delivery Room Air 12/07/24 11:52 MDM - Recheck/Abnormal Lab/Rx MDM Narrative Medical decision making narrative: See ED course Differential Diagnosis Differential diagnosis: Likely other (DKA, hyperglycemia, viral syndrome, dehydration) Lab Data 12/07/24 12:16 12/07/24 12:16 Labs: Lab Results 12/07/24 12/07/24 12/07/24 Range/Units 12:08 12:16 12:19 WBC 10.3 H (4.5-10.0) K/mm3 RBC 5.00 (4.6-6.20) M/mm3 Hgb 15.4 (14.0-18.0) g/dL Hct 44.5 (42.0-52.0) % MCV 89.0 (80-100) fl MCH 30.8 (26-34) pg MCHC 34.6 (32-36) g/dl RDW 13.1 (11.5-14.5) % Plt Count 272 (150-375) k/mm3 MPV 9.2 (7.4-10.4) fl Immature Gran % (Auto) 0.7 H (0-0.5) % Neut % (Auto) 75.2 H (45.5-73.1) % Lymph % (Auto) 19.6 (18.3-44.2) % [place] % (Auto) 3.8 (2.6-8.5) % Eos % (Auto) 0.4 (0-4.4) % Baso % (Auto) 0.3 (0.2-1.2) % Lymph # (Auto) 2.02 (0.9-3.2) K/mm3 [place] # (Auto) 0.4 (0.1-0.6) K/mm3 Eos # (Auto) 0.0 (0-0.3) K/mm3 Baso # (Auto) 0.0 (0.0-0.1) K/mm3 Abs Immat Gran (auto) 0.07 H (0.00-0.031) K/mm3 Absolute Neuts (auto) 7.8 H (1.3-6.7) K/mm3 Absolute Nucleated RBC 0.000 (0.0-0.012) K/mm3 Nucleated RBC % 0.0 (0.0-0.2) % Sodium 132 L (137-145) mmol/L Potassium 4.5 (3.4-5.0) mmol/L Chloride 99 (98-107) mmol/L Carbon Dioxide 23 (22-30) mmol/L Anion Gap 10 (4-12) mmol/L BUN 17 (9-20) mg/dL Creatinine 0.71 (0.7-1.3) mg/dL Estim Creat Clear Calc 92 ml/min Estimated GFR > 60 (59 - ) Glucose 239 H (65-110) mg/dL POC Capillary Glucose 261 H (65-105) mg/dl Lactic Acid 1.0 (0.7-2.0) mmol/L Calcium 9.2 (8.4-10.2) mg/dL Magnesium 1.5 L (1.6-2.3) mg/dL Total Bilirubin 0.9 (0.2-1.3) mg/dL AST 45 (17-59) U/L ALT 55 H (6-50) U/L Alkaline Phosphatase 76 (38-126) U/L Total Protein 7.0 (6.3-8.2) g/dL Albumin 4.2 (3.5-5.1) g/dL Beta-Hydroxybutyrate/Acetoacetate 1.70 H (0.02-0.27) mmol/L Urine Color Urine Appearance Urine pH Ur Specific [facility] Urine Protein Urine Glucose (UA) Urine Ketones Ur Blood (Man) Urine Nitrate Urine Bilirubin Urine Urobilinogen Leukocyte Esterase Rfl Urine RBC Urine WBC Ur Squamous Epith Cells Urine Bacteria Urine Casts 12/07/24 Range/Units 13:25 WBC (4.5-10.0) K/mm3 RBC (4.6-6.20) M/mm3 Hgb (14.0-18.0) g/dL Hct (42.0-52.0) % MCV (80-100) fl MCH (26-34) pg MCHC (32-36) g/dl RDW (11.5-14.5) % Plt Count (150-375) k/mm3 MPV (7.4-10.4) fl Immature Gran % (Auto) (0-0.5) % Neut % (Auto) (45.5-73.1) % Lymph % (Auto) (18.3-44.2) % Charlotte % (Auto) (2.6-8.5) % Eos % (Auto) (0-4.4) % Baso % (Auto) (0.2-1.2) % Lymph # (Auto) (0.9-3.2) K/mm3 [place] # (Auto) (0.1-0.6) K/mm3 Eos # (Auto) (0-0.3) K/mm3 Baso # (Auto) (0.0-0.1) K/mm3 Abs Immat Gran (auto) (0.00-0.031) K/mm3 Absolute Neuts (auto) (1.3-6.7) K/mm3 Absolute Nucleated RBC (0.0-0.012) K/mm3 Nucleated RBC % (0.0-0.2) % Sodium (137-145) mmol/L Potassium (3.4-5.0) mmol/L Chloride (98-107) mmol/L Carbon Dioxide (22-30) mmol/L Anion Gap (4-12) mmol/L BUN (9-20) mg/dL Creatinine (0.7-1.3) mg/dL Estim Creat Clear Calc ml/min Estimated GFR (59 - ) Glucose (65-110) mg/dL POC Capillary Glucose (65-105) mg/dl Lactic Acid (0.7-2.0) mmol/L Calcium (8.4-10.2) mg/dL Magnesium (1.6-2.3) mg/dL Total Bilirubin (0.2-1.3) mg/dL AST (17-59) U/L ALT (6-50) U/L Alkaline Phosphatase (38-126) U/L Total Protein (6.3-8.2) g/dL Albumin (3.5-5.1) g/dL Beta-Hydroxybutyrate/Acetoacetate (0.02-0.27) mmol/L Urine Color Pending Urine Appearance Pending Urine pH Pending Ur Specific [facility] Pending Urine Protein Pending Urine Glucose (UA) Pending Urine Ketones Pending Ur Blood (Man) Pending Urine Nitrate Pending Urine Bilirubin Pending Urine Urobilinogen Pending Leukocyte Esterase Rfl Pending Urine RBC Pending Urine WBC Pending Ur Squamous Epith Cells Pending Urine Bacteria Pending Urine Casts Pending ABG Data ABG results: 12/07/24 12:16 VBG pH 7.360 VBG pCO2 39.9 L VBG pO2 36.8 VBG HCO3 22.0 L O2 Delivery Device Room air O2 Liters/Min Not Reportable FiO2 21 Discharge Plan Discharge Clinical Impression: Enteritis, Acute dehydration, Hypomagnesemia, Type 2 diabetes mellitus with hyperglycemia Patient Disposition: Home Condition: Improved Instructions: Antibiotic Form, Dehydration (ED), Hypomagnesemia (ED), Enteritis (ED) Additional Instructions: Thank you for allowing us to evaluate you in the emergency room today. Your workup shows that you have enteritis in the small bowel which is inflammation/infection. Your being discharged home with a 40 from medications. One is a proton pump inhibitor to decrease the amount of stomach acid that is made, 1 is for nausea to take as needed and the other 2 are antibiotics. Please eat a bland diet, decrease acidic foods/drinks and do not eat anything that is hot, spicy or fried. Increase her water intake. Please continue to watch your blood sugars. You are not in DKA. Rather your elevated blood sugars recently is due to the degree of inflammation in your intestines. 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 If at any point you have any new or worsening symptoms do not hesitate to return to the emergency room for re-evaluation. Patient Language: Uzbek Prescriptions: New ondansetron HCl 4 mg tablet 4 mg PO Q6H PRN (Reason: nausea and vomiting) Qty: 20 0RF pantoprazole [Protonix] 40 mg tablet,delayed release (DR/EC) 40 mg PO QAM 28 Days Qty: 28 0RF doxycycline hyclate 100 mg capsule 100 mg PO BID Qty: 28 0RF metronidazole 500 mg tablet 500 mg PO Q8H Qty: 30 0RF No Action aspirin [Adult Aspirin Regimen] 81 mg tablet,delayed release (DR/EC) 81 mg PO DAILY clopidogrel 75 mg tablet 75 mg PO DAILY escitalopram oxalate [Lexapro] 10 mg tablet 10 mg PO DAILY pantoprazole 40 mg tablet,delayed release (DR/EC) 40 mg PO QAM quinapril 40 mg tablet 40 mg PO DAILY atorvastatin 80 mg tablet 80 mg PO QPM metoclopramide HCl [Reglan] 10 mg tablet 10 mg PO Q6H PRN (Reason: nausea and vomiting) Qty: 30 0RF bacitracin-polymyxin B 500-10,000 unit/gram ointment 0.5 inch RIGHT EYE Q3H 10 Days Qty: 3.5 0RF metformin 500 mg tablet extended release 24hr 1,000 mg PO BID 90 Days Qty: 360 1RF Rx Instructions: WITH MEALS (DME) pen needle, diabetic [BD Ultra-Fine Short Pen Needle] 31 gauge x 5/16 needle See Rx Instructions .ROUTE .MEDSUPPLY Qty: 100 2RF Rx Instructions: use once daily with insulin injections Tariqaglar KwlillyPen U-100 Insulin 100 unit/mL (3 mL) insulin pen 50 unit SUB-Q QAM 90 Days Qty: 45 1RF Follow-up/Referrals: Cathryn,Norm Chase MD [Primary Care Provider, Unknown] Tremaine Alas MD [Physician, Gastroenterology] Referral Note: Call for outpatient follow up of enteritis please. Time of Disposition: 14:25
[2024-12-07] MEDS: PANTOPRAZOLE SODIUM IV 40 MG VIAL IV PUSH (12:31)
[2024-12-07] MEDS: ONDANSETRON INJ 4 MG/2 ML VIAL IV PUSH (12:32)
[2024-12-07] MEDS: SODIUM CHLORIDE 0.9% IV 1,000 ML 100 ML IV CONT (12:32)
[2024-12-07 12:42] LABS: Alanine Aminotransferase 55 U/L (6-50); Albumin Level 4.2 g/dL (3.5-5.1); Alkaline Phosphatase 76 U/L (38-126); Anion Gap 10 mmol/L (4-12); Aspartate Amino Transferase 45 U/L (17-59); Bilirubin,Total 0.9 mg/dL (0.2-1.3); Blood Urea Nitrogen 17 mg/dL (9-20); Calcium 9.2 mg/dL (8.4-10.2); Carbon Dioxide 23 mmol/L (22-30); Chloride 99 mmol/L (98-107); Estimated CRCL calculation 92 ml/min; Estimated Glomerular Filt Rate > 60; Glucose 239 mg/dL (65-110); Magnesium 1.5 mg/dL (1.6-2.3); Potassium 4.5 mmol/L (3.4-5.0); Sodium 132 mmol/L (137-145); Total Protein 7.0 g/dL (6.3-8.2)
[2024-12-07 13:10] LABS: Beta-Hydroxybutyrate/Acetoace. 1.70 mmol/L (0.02-0.27)
[2024-12-07] MEDS: MAGNESIUM SULF 1 GM/D5W 100 ML 1 GM/100 ML BAG IVPB (13:15)
[2024-12-07 13:37] LABS: Add Urine Microscopic? YES; Appearance Urine Clear (Clear); Glucose Urine UA 3+ mg/dL (Negative); Leukocyte Esterase Ur Negative LEU/UL (Negative); Nitrate Urine Negative (Negative); Non Pathogenic Casts 0-2; Specific Grav Ur > 1.045 (1.001-1.035)
--- NOTE | 2024-12-07 14:15 | PC.NURSE ---
Mag drip is not completed yet d/t pt providing urine specimine, thus lengthening the infusion process.
[2024-12-07 15:01] VITALS: BP 148/76; PULSE 70; RESP 16; O2SAT 97
== END 2024-12-07 15:06 | disposition home or self-care (01) ==
PROVIDERS: Emergency Provider Nurse Practitioner Adult Health; PCP Family Medicine
DX: K52.9 Noninfective gastroenteritis and colitis, unspecified (principal); E11.65 Type 2 diabetes mellitus with hyperglycemia; E86.0 Dehydration; E83.42 Hypomagnesemia; I10 Essential (primary) hypertension; E78.5 Hyperlipidemia, unspecified; K21.9 Gastro-esophageal reflux disease without esophagitis; F17.290 Nicotine dependence, other tobacco product, uncomplicated; Z79.82 Long term (current) use of aspirin; Z79.899 Other long term (current) drug therapy; Z79.84 Long term (current) use of oral hypoglycemic drugs; Z79.4 Long term (current) use of insulin
CPT/HCPCS: 36415; 70450; 74177; 80053; 81001; 82010; 82803; 82948; 83605; 83735; 85025; 96365; 96375; 99284; J2405; J2470; J3475; J7030; Q9967

== ENCOUNTER 2025-02-01 12:27 | Outpatient (CLI) | payer BC, SELFPAY ==
--- OUTSIDE RECORDS SUMMARY | 2025-01-31 10:15 | XMS_ITS | Encounter Summary ---
Author Organization [facility] Healthcare Address [address] [place] [address] Care Team Providers Care Community Service Representative Name Role Phone Fabiana Whitney Primary Care Provider + Earl Morris MD Unavailable Reason for Visit * Reason Comments Med Management Encounter Details Date Type Department Care Team (Late st Contact Info) Description 01/31/2025 10:15 AM BANANA GRADER Office Visit [facility] Family Medicine at [address] [phone] Fabiana Whitney PA [address] [place] [id number] Essential hypertension (Primary Dx) Social History Tobacco Use Types Packs/Day Years Used Date Smoking Tobacco: Light Smoker Cigars Passive Smoke Exposure: Never Smokeless Tobacco: Never Alcohol Use Standard Drinks/Week Comments Not Currently 0 (1 standard drink = 0.6 oz pur e alcohol) social PHQ-2 Answer Date Recorded PHQ-2 Total Score (If total score is 3 or more points, staff should administer the PHQ-9) 2 01/01/2025 Social Connection and Isolation Panel Answer Date Recorded In a typical week, how many times do you talk on the phone with family, friends, or neighbors? Three times a week 12/24/2024 How often do you get togethe r with friends or relatives? Twice a week 12/24/2024 How often do you attend [facility] or restorationist services? Never 12/24/2024 Do you belong to any clubs o r organizations such as episcopal groups, unions, fraternal or athletic groups, or school groups? No 12/24/2024 How often do you attend meet ings of the clubs or organizations you belong to? Never 12/24/2024 Are you , , di vorced, , never , or living with a partner? 12/24/2024 AUDIT-C Answer Date Recorded Q1: How often do you have a drink containing alcohol? Never 01/08/2025 Q2: How many drinks containi ng alcohol do you have on a typical day when you are drinking? Patient does not drink Q3: How often do you have si x or more drinks on one occasion? Never 01/08/2025 Overall Financial Resource Strain (CARDIA) Answe r Date Recorded How hard is it for you to pa y for the very basics like food, housing, medical care, and heating? Not hard at all 12/24/2024 Hunger Vital Sign Answer Date Recorded Within the past 12 months, y ou worried that your food would run out before you got the money to buy more. Never true 12/25/19 Within the past 12 months, t he food you bought just didn't last and you didn't have money to get more. Never true 12/24/2024 PRAPARE - Transportation Answer Date Re corded In the past 12 months, has l ack of transportation kept you from medical appointments or from getting medications? No 11/29 In the past 12 months, has l ack of transportation kept you from meetings, work, or from getting things needed for daily living? No 12/24/2024 Housing Stability Vital Sign Answer Mauricio e Recorded In the last 12 months, was t here a time when you were not able to pay the mortgage or rent on time? No 12/24/2024 In the past 12 months, how m any times have you moved where you were living? 0 12/24/2024 At any time in the past 12 m [facility], were you homeless or living in a [facility] (including now)? No 12/24/2024 [facility] Utilities Answer Date Recorded In the past 12 months has th e electric, gas, oil, or water company threatened to shut off services in your home? No 12/24/2024 Personal Safety Answer Date Recorded Have you ever been in or are you currently in a harmful physical or emotional relationship or is someone making you feel afraid or unsafe? Denies 12/24/2024 Sex and Gender Information Value Date Recorded Sex Assigned at Not on file Legal Sex Male 12:40 AM BANANA GRADER Gender Identity Not on file Sexual Orientation Not on file documented as of this encounter Last Filed Vital Signs Vital Sign Reading Time Taken Comments Blood Pressure 158/88 01/31/2025 10:19 AM BANANA GRADER Pulse 82 01/31/2025 10:19 AM BANANA GRADER Temperature 36.2 C (97.2 F) 01/31/2025 10:19 AM BANANA GRADER Respiratory Rate - - Oxygen Saturation 98% 01/31/2025 10: 19 AM BANANA GRADER Inhaled Oxygen Concentration - - Weight 82.5 kg (181 lb 14.4 oz) 025 10:19 AM BANANA GRADER Height 175.3 cm (5' 9.02) 01/31/2025 1 0:19 AM BANANA GRADER Body Mass Index 26.85 01/31/2025 10:19 AM BANANA GRADER documented in this encounter Functional Status * BP Location Answer Date of Assessment Author Right arm 01/31/2025 10:19 AM BANANA GRADER Arpita Sweeney MA * BP Location Answer Date of Assessment Author Right arm 01/31/2025 10:19 AM BANANA GRADER Arpita Sweeney MA documented as of this encounter Ordered Prescriptions Prescription Sig Dispense Quantity Refills Last Filled Start Date End Date lisinopriL (PRINIVIL,ZESTRIL) 20 mg tabletIndications: Essential hypertension Take 1 tablet (20 mg total) by mouth daily 90 tablet 3 01/31/2025 01/31/2026 documented in this encounter Progress Notes * Fabiana Whitney PA - 01/31/2025 10:15 AM CST Images from the original note were not included. Subjective/Objective Visit date: 01/31/2025 Patient ID: Carlos A Moreno is a 64 y.o. male. Chief Complaint Chief Complaint Patient presents with Med Management Current Outpatient Medications: aspirin 81 mg enteric coated tablet, Take 1 tablet (81 mg total) by mouth daily, Disp: 30 tablet, Rfl: 11 atorvastatin (LIPITOR) 80 mg tablet, TAKE 1 TABLET(80 MG) BY MOUTH DAILY, Disp: 100 tablet, Rfl: 1 baclofen (LIORESAL) 20 mg tablet, Take 1 tablet (20 mg total) by mouth 3 (three) times a day with meals, Disp: 90 tablet, Rfl: 0 blood-glucose sensor (FreeStyle Priscilal 3 Plus Sensor) device, Use to continually monitor glucose, change sensor every 15 days, Disp: 6 each, Rfl: 3 clopidogreL (PLAVIX) 75 mg tablet, Take 1 tablet (75 mg total) by mouth daily, Disp: 90 tablet, Rfl: 3 escitalopram (LEXAPRO) 10 mg tablet, Take 1 tablet (10 mg total) by mouth daily, Disp: 90 tablet, Rfl: 3 glucagon 1 mg kit, Inject 1 mL (1 mg total) into the muscle as instructed every 30 (thirty) minutesas needed (blood glucose less than 70 mg/dL AND no IV access AND unable to take PO glucose/juice.),Disp: 1 kit, Rfl: 2 insulin aspart (NovoLOG) 100 unit/mL (3 mL) pen for injection, To inject before meals TID AC per correctional scale. TDD 50 units., Disp: 45 mL, Rfl: 3 insulin glargine 100 unit/mL (3 mL) pen for injection, Inject 30 Units under the skin nightly, Disp: 30 mL, Rfl: 3 metFORMIN XR (GLUCOPHAGE XR) 500 mg 24 hr tablet, Take 2 tablets (1,000 mg total) by mouth 2 (two) times a day after breakfast and dinner, Disp: 360 tablet, Rfl: 3 multivitamin tablet, Take 1 tablet by mouth daily Centrum Silver, Disp: , Rfl: ondansetron (ZOFRAN) 4 mg tablet, Take 1 tablet (4 mg total) by mouth every 6 (six) hours as neededfor nausea or vomiting, Disp: 40 tablet, Rfl: [address] (PROTONIX) 40 mg EC tablet, Take 1 tablet (40 mg total) by mouth daily, Disp: 30 tablet, Rfl: 0 pen needle, diabetic 32 gauge x 5/32 needle, Use to inject insulin 4 times a day, Disp: 400 each, Rfl: 3 lisinopriL (PRINIVIL,ZESTRIL) 20 mg tablet, Take 1 tablet (20 mg total) by mouth daily, Disp: 90 tablet, Rfl: 3 No Known Allergies HPI HTN: currently on no meds for BP. Somewhere along the line he stopped the lisnopril and unsure why and didn't have any at home. I had messaged him to check his BP and that I was questioning the discontinuation of this med so he noted elev BP's and came in. No symptoms, CP, SOB, GOODMAN. Review of Systems Respiratory: Negative for shortness of breath. Cardiovascular: Negative for chest pain. Neurological: Negative for dizziness and headaches. Vitals BP 158/88 (BP Location: Right arm, Patient Position: Sitting) Pulse 82 Temp 36.2 ??C (97.2 ??F) (Temporal) Ht 175.3 cm (5' 9.02) Wt 82.5 kg (181 lb 14.4 oz) SpO2 98% BMI 26.85 kg/m?? Physical Exam Constitutional: General: He is not in acute distress. Appearance: Normal appearance. He is not ill-appearing. Cardiovascular: Rate and Rhythm: Normal rate and regular rhythm. Heart sounds: Normal heart sounds. Pulmonary: Effort: Pulmonary effort is normal. Breath sounds: Normal breath sounds. Musculoskeletal: Right lower leg: No edema. Left lower leg: No edema. Neurological: Mental Status: He is alert and oriented to person, place, and time. Psychiatric: Mood and Affect: Mood normal. Behavior: Behavior normal. Diagnoses and all orders for this visit: Essential hypertension (Primary) Comments: uncontrolled, resume lisinopril, I think it was just left off his last admission meds, cont home monitoring, sodium restriction Orders: - lisinopriL (PRINIVIL,ZESTRIL) 20 mg tablet; Take 1 tablet (20 mg total) by mouth daily Return for Next scheduled follow up. Fabiana Whitney PA-C NA GRADER documented in this encounter Plan of Treatment Not on file documented as of this encounter Visit Diagnoses Diagnosis Essential hypertension- Primary Unspecified essential hypertension documented in this encounter Care Teams Community Service Representative Relationship Specialty Start Date End Date Fabiana Whitney PA [address] [facility] [address] [place] [address] [place] [id number] PCP - General Family Medicine 11/14/24 Earl Morris MD [address] [facility] [address] [place] [address] [place] [phone] Laboratory Chemical Assistant Gastroenterology 12/11/24 documented as of this encounter
--- OUTSIDE RECORDS SUMMARY | 2025-02-01 12:32 | XMS_ITS | Clinical Summary ---
Author Organization [facility] Address [address] [place] [id number] Care Team Providers [facility] Rep Name Role Phone Fabiana Whitney Primary Care Provider + Earl Morris MD Unavailable Allergies No known active allergies Medications clopidogreL (PLAVIX) 75 mg tablet Take 1 tablet (75 mg total) by mouth daily 90 tablet 3 Active escitalopram (LEXAPRO) 10 mg tabletIndicatio ns:RAF (generalized anxiety disorder) Take 1 tablet (10 mg total) by mouth daily 90 tablet 3 025 Active multivitamin tablet Take 1 tablet by mouth daily Centrum Silver Active aspirin 81 mg enteric coated tablet Take 1 tablet (81 mg total) by mouth daily 30 tablet 11 025 2025 Active ondansetron (ZOFRAN) 4 mg tablet Take 1 tablet (4 mg total) by mouth every 6 (six) hours as needed for nausea or vomiting 40 [address] (PROTONIX) 40 mg EC tabletIndicatio ns:GERD and hiccups Take 1 tablet (40 mg total) by mouth daily 30 tablet Active baclofen (LIORESAL) 20 mg tablet Take 1 tablet (20 mg total) by mouth 3 (three) times a day with meals 90 tablet 025 Active glucagon 1 mg kit Inject 1 mL (1 mg total) into the muscle as instructed every 30 (thirty) minutes as needed (blood glucose less than 70 mg/dL AND no IV access AND unable to take PO glucose/juice.) 1 kit 2 Active pen needle, diabetic 32 gauge x 32 needleIndicatio ns:Type 2 diabetes mellitus with hyperglycemia, unspecified whether terminal gauger supervisor insulin use (HCC) Use to inject insulin 4 times a day 400 each 3 Active blood-glucose sensor (FreeStyle Priscilla 3 Plus Sensor) deviceIndicatio ns:Type 2 diabetes mellitus with hyperglycemia, unspecified whether correction insulin use (HCC),Type 2 diabetes mellitus with diabetic microalbuminuri a, without long-term current use of insulin (FORM[facility]LY [facility]) Use to continually monitor glucose, change sensor every 15 days 6 each 3 Active insulin aspart (NovoLOG) 100 unit/mL (3 mL) pen for injectionIndica tions:Type 2 diabetes mellitus with hyperglycemia, unspecified whether correction insulin use (HCC),Type 2 diabetes mellitus with diabetic microalbuminuri a, without long-term current use of insulin ([facility]) To inject before meals TID AC per correctional scale. TDD 50 units. 45 mL 3 Active insulin glargine 100 unit/mL (3 mL) pen for injectionIndica tions:Type 2 diabetes mellitus with hyperglycemia, unspecified whether terminal gauger supervisor insulin use (HCC),Type 2 diabetes mellitus with diabetic microalbuminuri a, without long-term current use of insulin ([facility]) Inject 30 Units under the skin nightly 30 mL 3 Active metFORMIN XR (GLUCOPHAGE XR) 500 mg 24 hr tabletIndicatio ns:Type 2 diabetes mellitus with hyperglycemia, unspecified whether terminal gauger supervisor insulin use (HCC),Type 2 diabetes mellitus with diabetic microalbuminuri a, without long-term current use of insulin ([facility]) Take 2 tablets (1,000 mg total) by mouth 2 (two) times a day after breakfast and dinner 360 tablet 3 025 2025 Active atorvastatin (LIPITOR) 80 mg tablet TAKE 1 TABLET(80 MG) BY MOUTH DAILY 100 tablet 1 Active lisinopriL (PRINIVIL,ZESTR IL) 20 mg tabletIndicatio ns:Essential hypertension Take 1 tablet (20 mg total) by mouth daily 90 tablet 3 025 2025 Active atorvastatin (LIPITOR) 80 mg tablet TAKE 1 TABLET(80 MG) BY MOUTH DAILY 100 tablet 1 025 2024 Discontinued insulin glargine (BASAGLAR) 100 unit/mL (3 mL) pen for injectionIndica tions:Type 2 diabetes mellitus with diabetic microalbuminuri a, without long-term current use of insulin (HCC) Inject 54 Units under the skin daily 60 mL 3 2024 Discontinued(S top Taking at Discharge) metFORMIN XR (GLUCOPHAGE XR) 500 mg 24 hr tabletIndicatio ns:Type 2 diabetes mellitus with diabetic microalbuminuri a, without long-term current use of insulin (HCC) Take 2 tablets (1,000 mg total) by mouth 2 (two) times a day after breakfast and dinner 360 tablet 3 2024 Discontinued(R eorder) glucose 4 gram chewable tablet Take 4 tablets (16 g total) by mouth as needed for low blood sugar 30 tablet 2024 insulin lispro (HumaLOG, ADMELOG) 100 unit/mL pen for injection Inject 2-10 units under the skin 3 (three) times a day with meals. Blood glucose mg/dL 150-199: 2 units, 200-249: 4 units, 250-299: 6 units, 300-349: 8 units, 350 or greater: 10 units. Notify provider for blood glucose greater than 299 mg/dL. Refer to After Visit Summary for Sliding Scale Insulin Instructions. 15 mL 1 2024 Discontinued(A lternate therapy) insulin lispro (HumaLOG, ADMELOG) 100 unit/mL pen for injection Inject 9 Units under the skin 3 (three) times a day with meals 8.1 mL 1 2024 Discontinued(A lternate therapy) insulin glargine 100 unit/mL (3 mL) pen for injection Inject 30 Units under the skin nightly 9 mL 1 2024 Discontinued(R eorder) insulin aspart (NovoLOG) 100 unit/mL (3 mL) pen for injection 2024 Discontinued(R eorder) blood-glucose sensor (FreeStyle Priscilla 3 Plus Sensor) deviceIndicatio ns:Type 2 diabetes mellitus with diabetic microalbuminuri a, without long-term current use of insulin (HCC) Use to continually monitor glucose, change sensor every 15 days 6 each 3 025 2024 Discontinued(R eorder) Active Problems Problem Noted Date Diagnosed Date Sinus arrest 12/25/2024 Assessment & Plan (12/25/2024 5:53 AM CDT): Recurrent episodes of syncope iso severe N/V and hiccups (2 weeks prior to current presentation). Etiology at that time was presumed to be vasovagal iso coughing/hiccuping episodes. Prior to this admission, telemetry during syncopal episodes was unremarkable. This admission, telemetry notable for sinus pause >8s followed by sinus slowing. - S/p medtronic leadless PPM w/ EP 12/24 - 2v CXR ordered for 12/25 AM - Tentative plans for discharge 12/25 pending EP eval - DAPT resumed 12/24 Elevated transaminase level 12/22/2024 Assessment & Plan (12/25/2024 5:53 AM CDT): LFTs are improving.AST 132 >57, ALT 183 >126, ALP 57 >44; started uptrending from normal 12/20. Hep panel neg. RUQ US neg 12/21. Does have hx of alcohol use, 6 drinks/day for 20 years. Now outside of withdrawal window. - Recommend repeating LFTs 2-4 weeks after discharge Assessment & Plan (12/22/2024 11:07 AM CDT): AST 132, ALT 183, ALP 57 on most recent labs, increasing from normal over past few days. T.bili 0.4, Na 137. Per chart review has longstanding history of excessive EtOH use, 6 drinks a day for 20 years. Out of withdrawal window. Acute hep panel negative. RUQ US negative 12/21. Has not been taking PRN tylenol while admitted. 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 Assessment & Plan (12/21/2024 2:33 PM CDT): Differentials: Situational syncope, orthostatic hypotension 2/2 poorly controlled diabetes, Vertebrobasilar insufficiency/posterior circulation ischemia, Post- seizure stroke (ruled out), medication adverse reaction - Episodes have occurred with coughing, hiccups, and micturation - one episode questionably occurred with a transfer from bed to chair on day of discharge but this was unwitnessed - Orthostatic teaching has been performed; x2 positive incidences of orthostatic hypotension; at those times there were no episodes, indicating most likely situational syncope (vasovagal) - Discontinue Thorazine, discontinue meclizine - Hiccups somewhat controlled with Baclofen, increased dosing today - Discontinued Amlodipine - compression stockings - Will work on transfer for tilt-table testing, this will either definitely prove the cause of these syncopal episodes. Per my conversation with cardiology this would be appropriate at this time, the patient is not a candidate for a pacemaker. - Consider possible interventions for intractable hiccups if they cannot be controlled with medication - Neurology consulted. MRI ordered showed concerns for new stroke - Home statin/plavix - Added ASA 81mg PO daily - Repeat Head CT on 12/19/24 no acute changes - Repeat EEG read pending 12/21/2024 - Repeat EKG ordered on 12/21/2024 to r/o new arrhythmia - CTA Head Neck W/ WO contrast ordered; Left PICA occlusion - TTE performed - PT/OT/ST ordered Assessment & Plan (12/20/2024 8:37 AM CDT): Differentials: Situational syncope, orthostatic hypotension 2/2 poorly controlled diabetes, Vertebrobasilar insufficiency/posterior circulation ischemia, Post- seizure stroke (ruled out), medication adverse reaction - Discontinue Thorazine, discontinue meclizine - Hiccups to be controlled with Baclofen, can consider increasing - Discontinued Amlodipine - compression stockings - Repeat Head CT on 12/19/24 no acute changes - Neurology consulted. MRI ordered showed concerns for new stroke - Home statin/plavix - Added ASA 81mg PO daily - CTA Head Neck W/ WO contrast ordered; Left PICA occlusion - TTE performed - PT/OT/ST ordered Hiccups 12/16/2024 Assessment & Plan (12/25/2024 5:53 AM CDT): Continue baclofen 20mg TID given patient reported subjective improvement Assessment & Plan (12/22/2024 11:07 AM CDT): Recurrent syncopal events directly after cough/hiccuping/heaving episodes. No clear post-ictal state and OSH EEG negative, granted he has not been on an EEG during an episode. Some episodes have happened while lying in bed which makes orthostasis less likely. Recent/acute ischemic CVA in dorsal medial left lateral medullary plate per bMRI 12/17, which could possibly be inciting event for recent intractable hiccups/cough/N/V resulting in vasovagal syncope, carotid hypersensitivity. Patient transferred here for further work-up. Hiccups have improved with baclofen. Previously on thorazine/meclizine at OSH but concern for contribution to ?orthostasis, so these were stopped. - Orthostatic vitals - Carotid dopplers - Tele - Neuro consult -> rec routine extended EEG for now - Cardiology consult -> will discuss further work-up as indicated - Hold midodrine given unlikelihood of orthostasis contributing - Continue baclofen 20 TID, patient states this has been helping his hiccup sx. Hyponatremia 12/10/2024 Assessment & Plan (12/10/2024 4:55 PM CDT): Sodium of 129 suspect due to dehydration. No severe symptoms aside from nausea and vomiting. Patient received 1L NS in the ED. NS infusion at 100cc/hr is started. Repeat BMP now. Ordered serum and urine osmolality, urine sodium and TSH. Avoid correcting more than 8 mEq/L per 24 hours. Subclinical hypothyroidism 12/10/2024 Assessment & Plan (12/10/2024 9:13 PM CDT): TSH of 284 with normal T4 of 1.45. Repeat TSH and T4. Add TPO. May consider endocrinology evaluation. Hyperlipidemia 01/05/2024 Assessment & Plan (12/10/2024 4:21 PM CDT): Resume home Lipitor. Microalbuminuria 01/05/2024 Arthralgia of both knees 08/23/2022 Assessment & Plan (08/23/2022 2:25 PM CDT): I have ordered an iron and ferritin level. PLMD (periodic limb movement disorder) Assessment & Plan (02/08/2024 3:19 PM ACCOUNTANT SYSTEMS): Asymptomatic Assessment & Plan (12/13/2022 10:17 AM [...] mellitus with hyperglycemia 05/30 Assessment & Plan (12/25/2024 5:53 AM CDT): A1c 11.2% 12/10/2024. Insulin regimentitrated at OSH/here: tresiba 30u qAM + lispro 9u TIDAC + HDSSI - Continue basal bolus + HDSSI here - Diabetes education prior to discharge Assessment & Plan (12/22/2024 11:07 AM CDT): A1c 11.2% 12/10/2024. Insulin regimen titrated at OSH: glargine 30 units QAM, lispro 9 units TIDAC + hdSSI - Continue above regimen here, transition to tresiba from glargine - CC diet Assessment & Plan (12/21/2024 2:33 PM CDT): Home regimen: 54u glargine nightly - need to be on short acting and long acting at discharge w/ daily blood sugar checks - consider CGM - Diabetic educators consulted - 26 units of lantus currently - 6 units of lispro with meals - will require higher when eating regular diet, currently advancing diet - SSI ordered - ACHS glucose checks - Hypoglycemia protocol Assessment & Plan (12/20/2024 8:37 AM CDT): Home regimen: 54u glargine nightly - need to be on short acting and long acting at discharge w/ daily blood sugar checks - consider CGM - Diabetic educators consulted - 24 units of lantus currently - 4 units of lispro with meals - will require higher when eating regular diet, currently advancing diet - ACHS glucose checks - Hypoglycemia protocol Assessment & Plan (12/18/2024 2:23 PM CDT): Home regimen: 54u glargine nightly - need to be on short acting and long acting at discharge w/ daily blood sugar checks - consider CGM - Diabetic educators consulted - 24 units of lantus currently - 4 units of lispro with meals - will require higher when eating regular diet, currently advancing diet - ACHS glucose checks - Hypoglycemia protocol Assessment & Plan (12/17/2024 12:53 PM CDT): Home regimen: 54u glargine nightly Patient is currently npo. Give 27 units daily for now Resume home regimen when he's eating Assessment & Plan (12/16/2024 5:25 PM CDT): Resume 54u glargine nightly POCT glucose trends; if low or not eating, will lower basal dosing Hypoglycemia protocol Assessment & Plan (12/16/2024 4:12 PM CDT): Resume 54u nightly Assessment & Plan (12/10/2024 4:21 PM CDT): SSI while inpatient. Hypoglycemic protocol. Monitor POC glucose. Assessment & Plan (12/21/2022 4:38 PM CDT): [...] (obstructive sleep apnea) 12/28/2021 Assessment & Plan (12/10/2024 4:21 PM CDT): RT communication for CPAP at night with his home settings. Assessment & Plan (02/08/2024 3:19 PM ACCOUNTANT SYSTEMS): Due to the patient not using the [...] [employer]. Assessment & Plan (04/15/2022 2:31 PM ACCOUNTANT SYSTEMS): The patient will complete an in-home nocturnal polysomnogram. The patient would like an auto titrating CPAP after rediagnosis of HORAEC and he would prefer to use the DME company [employer]. History of ischemic stroke 04/23/2020 Assessment & Plan (12/25/2024 5:53 AM CDT): Formal bMRI 12/17, found ischemic CVA in dorsal medial left lateral medullary plate. EEG neg. ASA and plavix started. A1c 11.2%, LDL 25. TTE 12/18 with no cardiac source of embolism. Medullary stroke may be etiology of recurrent hiccups. Carotid dopplers 12/22 w/ <50% stenosis, no hemodynamic significance. rEEG at [facility] completed, read pending - Neurology consulted and following - Referral for outpatient follow up for [facility] - 30d mobile cardiac child monitor (on discharge) - DAPT resumed 12/24 following PPM - Continue atorvastatin 80mg daily Assessment & Plan (12/22/2024 11:07 AM CDT): Initial CTH showed showed old left cerebellar infarct, however on formal bMRI 12/17, found ischemic CVA in dorsal medial left lateral medullary plate. Possible etiology of intractable hiccups as above. Neurology saw patient at OSH, negative EEG, added ASA to plavix. No clear physical deficits, swallow deficits otherwise noted at OSH per DENTAL EQUIPMENT MECHANIC/PT/OT. A1c 11.2%, LDL 25. TTE 12/18 mild concentric remodeling, nl diastolic fxn, LVEF 75%. - ASA, plavix, statin - Carotid dopplers - Regular consistency diet - Neurology following as elsewhere Assessment & Plan (12/21/2024 2:33 PM CDT): Differentials: Situational syncope, orthostatic hypotension 2/2 poorly controlled diabetes, Vertebrobasilar insufficiency/posterior circulation ischemia, Post- seizure stroke (ruled out), medication adverse reaction - Episodes have occurred with coughing, hiccups, and micturation - one episode questionably occurred with a transfer from bed to chair on day of discharge but this was unwitnessed - Orthostatic teaching has been performed; x2 positive incidences of orthostatic hypotension; at those times there were no episodes, indicating most likely situational syncope (vasovagal) - Discontinue Thorazine, discontinue meclizine - Hiccups somewhat controlled with Baclofen, increased dosing today - Discontinued Amlodipine - compression stockings - Will work on transfer for tilt-table testing, this will either definitely prove the cause of these syncopal episodes. Per my conversation with cardiology this would be appropriate at this time, the patient is not a candidate for a pacemaker. - Consider possible interventions for intractable hiccups if they cannot be controlled with medication - Neurology consulted. MRI ordered showed concerns for new stroke - Home statin/plavix - Added ASA 81mg PO daily - Repeat Head CT on 12/19/24 no acute changes - Repeat EEG read pending 12/21/2024 - Repeat EKG ordered on 12/21/2024 to r/o new arrhythmia - CTA Head Neck W/ WO contrast ordered; Left PICA occlusion - TTE performed - PT/OT/ST ordered Assessment & Plan (12/20/2024 8:37 AM CDT): Differentials: Situational syncope, orthostatic hypotension 2/2 poorly controlled diabetes, Vertebrobasilar insufficiency/posterior circulation ischemia, Post- seizure stroke (ruled out), medication adverse reaction - Discontinue Thorazine, discontinue meclizine - Hiccups to be controlled with Baclofen, can consider increasing - Discontinued Amlodipine - compression stockings - Repeat Head CT on 12/19/24 no acute changes - Neurology consulted. MRI ordered showed concerns for new stroke - Home statin/plavix - Added ASA 81mg PO daily - CTA Head Neck W/ WO contrast ordered; Left PICA occlusion - TTE performed - PT/OT/ST ordered Assessment & Plan (12/18/2024 2:23 PM CDT): - Please see significant event note on 12/16/2024 for further details - Prolactin elevated post this event - IV Keppra 1000mg BID - Neurology consulted. MRI ordered showed concerns for new stroke - Home statin/plavix - Added ASA 81mg PO daily - CTA Head Neck W/ WO contrast ordered - TTE W/ Bubble study ordered - PT/OT/ST ordered Assessment & Plan (12/17/2024 7:50 AM CDT): Resume statin/plavix Assessment & Plan (12/16/2024 5:26 PM CDT): Resume statin/plavix Assessment & Plan (12/10/2024 4:21 PM CDT): Resume home Lipitor. Assessment & Plan (06/08/2021 11:10 AM CDT): Continues plavix and aspirin daily. Essential hypertension 04/19/2019 Assessment & Plan (12/25/2024 5:53 AM CDT): Home regimen: lisinopril. Held in the setting of orthostatic hypotension/syncope. Assessment & Plan (12/22/2024 11:07 AM CDT): Holding lisinopril for now pending BP trend and repeat orthostatics. If negative and BP normal/elevated, anticipate restart. Assessment & Plan (12/10/2024 4:21 PM CDT): History of HTN. Stable. Resume home medications. Assessment & Plan (06/23/2022 7:51 AM CDT): Quinapril on backorder. BP borderline elevated today off meds. Will switch to lisinopril 20 mg daily. Assessment & Plan (06/08/2021 11:09 AM CDT): Well controlled. Continue current regimen. Gastroesophageal reflux disease without esophagi tis 04/19/2019 Assessment & Plan (12/25/2024 5:53 AM CDT): Continue PPI BID (started BID given N/V at OSH for sx mgmt). Assessment & Plan (12/22/2024 11:07 AM CDT): Continue PPI BID (started BID given N/V at OSH for sx mgmt). Assessment & Plan (12/10/2024 4:21 PM CDT): Resume PPI. RAF (generalized anxiety disorder) 04/19/2019 Assessment & Plan (12/10/2024 4:21 PM CDT): Resume home medications. Resolved Problems Problem Noted Date Diagnosed Date Resolved Date Vasovagal syncope 12/16/2024 01/25/2025 Assessment & Plan (12/22/2024 11:07 AM CDT): Recurrent syncopal events directly after cough/hiccuping/heaving episodes. No clear post-ictal state and OSH EEG negative, granted he has not been on an EEG during an episode. Some episodes have happened while lying in bed which makes orthostasis less likely. Recent/acute ischemic CVA in dorsal medial left lateral medullary plate per bMRI 12/17, which could possibly be inciting event for recent intractable hiccups/cough/N/V resulting in vasovagal syncope, carotid hypersensitivity. Patient transferred here for further work-up. Hiccups have improved with baclofen. Previously on thorazine/meclizine at OSH but concern for contribution to ?orthostasis, so these were stopped. - Orthostatic vitals - Carotid dopplers - Tele - Neuro consult -> rec routine extended EEG for now - Cardiology consult -> will discuss further work-up as indicated - Hold midodrine given unlikelihood of orthostasis contributing - Continue baclofen 20 TID, patient states this has been helping his hiccup sx. Assessment & Plan (12/21/2024 2:33 PM CDT): Differentials: Situational syncope, orthostatic hypotension 2/2 poorly controlled diabetes, Vertebrobasilar insufficiency/posterior circulation ischemia, Post- seizure stroke (ruled out), medication adverse reaction - Episodes have occurred with coughing, hiccups, and micturation - one episode questionably occurred with a transfer from bed to chair on day of discharge but this was unwitnessed - Orthostatic teaching has been performed; x2 positive incidences of orthostatic hypotension; at those times there were no episodes, indicating most likely situational syncope (vasovagal) - Discontinue Thorazine, discontinue meclizine - Hiccups somewhat controlled with Baclofen, increased dosing today - Discontinued Amlodipine - compression stockings - Will work on transfer for tilt-table testing, this will either definitely prove the cause of these syncopal episodes. Per my conversation with cardiology this would be appropriate at this time, the patient is not a candidate for a pacemaker. - Consider possible interventions for intractable hiccups if they cannot be controlled with medication - Neurology consulted. MRI ordered showed concerns for new stroke - Home statin/plavix - Added ASA 81mg PO daily - Repeat Head CT on 12/19/24 no acute changes - Repeat EEG read pending 12/21/2024 - Repeat EKG ordered on 12/21/2024 to r/o new arrhythmia - CTA Head Neck W/ WO contrast ordered; Left PICA occlusion - TTE performed - PT/OT/ST ordered Assessment & Plan (12/20/2024 8:37 AM CDT): Differentials: Situational syncope, orthostatic hypotension 2/2 poorly controlled diabetes, Vertebrobasilar insufficiency/posterior circulation ischemia, Post- seizure stroke (ruled out), medication adverse reaction - Discontinue Thorazine, discontinue meclizine - Hiccups to be controlled with Baclofen, can consider increasing - Discontinued Amlodipine - compression stockings - Repeat Head CT on 12/19/24 no acute changes - Neurology consulted. MRI ordered showed concerns for new stroke - Home statin/plavix - Added ASA 81mg PO daily - CTA Head Neck W/ WO contrast ordered; Left PICA occlusion - TTE performed - PT/OT/ST ordered Assessment & Plan (12/18/2024 2:23 PM CDT): - Please see significant event note on 12/16/2024 for further details - Prolactin elevated post this event - IV Keppra 1000mg BID - Neurology consulted. MRI ordered showed concerns for new stroke - Home statin/plavix - Added ASA 81mg PO daily - CTA Head Neck W/ WO contrast ordered - TTE W/ Bubble study ordered - PT/OT/ST ordered Assessment & Plan (12/17/2024 7:50 AM CDT): 2/2 dehydration vs seizure like activity C/w supportive care and keppra Assessment & Plan (12/16/2024 5:45 PM CDT): Syncope is favored 2/2 to dehydration. Seizures less likely given history. Pt without cardiac sx here or cardiac history but does has risk factors. EKG is sinus rhythm, normal rates, non ischemic without ectopy. CTH is normal Will check BNP and trop for completeness Colitis 12/10/2024 01/25/2025 Assessment & Plan (12/21/2024 2:33 PM CDT): CT AP showing colitis/diverticuluitis though no reports of fever or abd pain. Hx of uncontrolled DM GI was consulted, recommendations were made. - Outpatient EGD and colonoscopy - Outpatient Gastric emptying, had reglan inpatient - Cipro and Flagyl for Diverticulitis/Colitis; Treatment completed on 12/21/2024 - colonoscopy in 4-6 weeks - Continue PPI + Zofran - Advance diet; diabetic - Plant And Maintenance Technician consult Assessment & Plan (12/10/2024 4:44 PM CDT): Imaging at outside facility showed enteritis. Started on Flagyl and Doxycycline at other facility. Will complete course. Lipase and LFT WNL. Order placed to obtain medical records and imaging from [facility]. Check KUB. Gently hydrate. PO as tolerated. Zofran PRN nausea. Continue PPI. Received Reglan at the ED. See if this helps given history of diabetes. If no improvement, consider GI. Abdominal pain 12/10/2024 01/25/2025 Assessment & Plan (12/10/2024 4:44 PM CDT): Imaging at outside facility showed enteritis. Started on Flagyl and Doxycycline at other facility. Will complete course. Lipase and LFT WNL. Order placed to obtain medical records and imaging from [facility]. Check KUB. Gently hydrate. PO as tolerated. Zofran PRN nausea. Continue PPI. Received Reglan at the ED. See if this helps given history of diabetes. If no improvement, consider GI. Hypertension associated with type 2 diabetes mellitus 03/02/2023 03/22/2023 Snoring 01/14/2022 04/15/2022 Assessment & Plan (01/14/2022 4:10 PM ACCOUNTANT SYSTEMS): The patient presents with snoring and daytime hypersomnia. I have recommended proceeding with a nocturnal polysomnogram with a split night protocol if necessary and no MSLT. Diabetic neuropathy 08/18/2018 04/21/19 23 Assessment & Plan (06/08/2021 11:13 AM CDT): Poorly controlled. A1C 13.8. Discussed importance of improving sugars. He will increase levemir to 60 units daily and also start taking his metformin XR 1000 mg twice daily instead of once daily. Stressed importance of checking sugars twice daily. He will send me glucose readings in 2 weeks through [employer]. He will get his eyes checked and have them send me a copy of report. Labs in 3 months per orders. He declines referral to diabetic education. 1800 calorie ADA diet given to patient today. Encounters Date Type Department Care Team Description 02/01/2025 Telephone [facility] Medical [facility] at [address] [place] [address] Fabiana Whitney PA 01/31/2025 10:15 AM ACCOUNTANT SYSTEMS Office Visit [facility] Family Medicine at [address] [place] [address] Fabiana Whitney PA Essential hypertension (Primary Dx) 01/11/2025 3:00 PM ACCOUNTANT SYSTEMS Office Visit [facility] Stroke [facility] [address] [place] [phone] Teresa Domingo MD History of ischemic stroke (Primary Dx); Essential hypertension; Mixed hyperlipidemia 01/08/2025 2:40 PM ACCOUNTANT SYSTEMS Office Visit [facility] Endocrinology Metabolism and Lipid [address] [facility] Medical Office Building 4, [address] [place] [phone] Holley Aguilar MD Type 2 diabetes mellitus with hyperglycemia, unspecified whether terminal gauger supervisor insulin use (HCC) (Primary Dx); Type 2 diabetes mellitus with diabetic microalbuminuria, without long-term current use of insulin (HCC); Mixed hyperlipidemia; Essential hypertension 01/04/2025 Documentation [facility] Endocrinology Metabolism and Lipid [address] [place] [address] Medical Office Building 4, [address] [place] [phone] Gisela Diaz RN PA Paperwork 01/01/2025 2:30 PM ACCOUNTANT SYSTEMS Office Visit [facility] Family Medicine at [address] [place] [phone] Fabiana Whitney PA History of ischemic stroke (Primary Dx); Elevated LFTs; Type 2 diabetes mellitus with hyperglycemia, with long-term current use of insulin (HCC); Gastroesophageal reflux disease without esophagitis; RAF (generalized anxiety disorder); Sinus arrest 12/31/2024 9:30 AM ACCOUNTANT SYSTEMS Ancillary Procedure [facility] Cardiology [address] [facility] [address] [place] [address] Fitting or adjustment of cardiac pacemaker 12/31/2024 Telephone [facility] Cardiology [address] [facility] 8th [place] [address] [place] [address] Dacia Sneed RN 12/28/2024 SHOP/CHAP Initial [facility]reach [facility] [address] [phone] Zonia Aleman, [facility] 12/27/2024 SHOP/CHAP Initial [facility]reach [facility] [address] [phone] Zonia Aleman, [facility] 12/27/2024 Telephone [facility] at [address] [place] [phone] Fabiana Whitney PA TRACEY Questions 12/26/2024 Telephone [facility] Endocrinology Metabolism and Lipid [address] [facility] Medical Office Building 4, [address] [place] [address] Gisela Diaz RN PA Dexcom G7 12/26/2024 Telephone [facility] Endocrinology Metabolism and Lipid [address] [facility] Medical Office Building 4, [address] [place] [address] Gisela Diaz RN 12/26/2024 SHOP/CHAP Initial [facility] [address] [place] [id number] [phone] 100 Zonia Aleman, MECHANICAL ASSEMBLER 12/26/2024 SHOP/CHAP Initial Eligibility Review Stay [facility] Outpatient [facility] [address] [facility] [phone] [place] [address] Zonia Aleman, MECHANICAL ASSEMBLER 12/24/2024 4:53 PM CDT Anesthesia Event [facility] Electrophysiology Lab 1 [place] [address] Ric Lebron MD Silver, Kate Elizabeth, BARB 12/24/2024 3:35 PM CDT - 12/24/2024 6:00 PM CDT Surgery [facility] Electrophysiology Lab 1 [place] [address] Nixon Parsons MD PhD LEADLESS, SINGLE CHAMBER PACEMAKER (PPM) INSERTION 12/23/2024 Orders Only [facility] Cardiology [address] [facility] 8th [place] [address] [place] [address] Amy Hernandez NP Fitting or adjustment of cardiac pacemaker (Primary Dx) 12/22/2024 6:25 PM CDT Ancillary Procedure [facility] Vascular Lab IP 1 [facility] [address] [place] [address] 12/22/2024 8:10 AM CDT - 12/25/2024 5:06 PM CDT Hospital Encounter [address] [phone] Norm Gan MD PhD Juan, MD Rene Keys Richard G., MD Schindler, Basim Chan MD Syncope and collapse (Primary Dx); Cerebrovascular accident (CVA), unspecified mechanism (HCC) Discharge Disposition: Discharge to home or self care 12/20/2024 Telephone [facility] at [address] [place] [address] Fabiana Whitney PA TRACEY Questions 12/16/2024 10:46 AM CDT - 12/22/2024 7:43 AM CDT Hospital Encounter [facility] [address] [address] Frank Johnson MD Wang, Andy, MD Okeke, MD Melani Gunter, Noel Torres MD Nausea and vomiting, unspecified vomiting type (Primary Dx); Syncope and collapse; Colitis; Syncope, unspecified syncope type [R55]; Type 2 diabetes mellitus with hyperglycemia, unspecified whether terminal gauger supervisor insulin use (HCC) [E11.65]; Hiccups [R06.6]; Vasovagal syncope; Essential hypertension; Type 2 diabetes mellitus with hyperglycemia, with long-term current use of insulin (HCC); History of ischemic stroke; Seizure-like activity (HCC) Discharge Disposition: Discharge to a short term hospital for IP 12/11/2024 Telephone [facility] Endocrinology Metabolism and Lipid [address] [place] [address] Medical Office Building 4, [address] [place] [address] Holley Aguilar MD 12/10/2024 12:49 PM CDT - 12/11/2024 1:42 PM CDT Hospital Encounter [facility] [address] [address] Vimal Cruz, Artie Ortiz DO Chowdhury, Farhanaz, MD Hyponatremia (Primary Dx); Nausea and vomiting, unspecified vomiting type; Abdominal pain, unspecified abdominal location [R10.9]; Enteritis [K52.9]; Essential hypertension [I10]; RAF (generalized anxiety disorder) [F41.1]; Gastroesophageal reflux disease without esophagitis [K21.9]; History of CVA in adulthood [Z86.73]; Mixed hyperlipidemia [E78.2]; Type 2 diabetes mellitus with hyperglycemia, without long-term current use of insulin (HCC) [E11.65]; HORACE (obstructive sleep apnea) [G47.33] Discharge Disposition: Discharge to home or self care 11/27/2024 11:10 AM CDT - 11/27/2024 11:59 PM CDT Hospital Encounter [facility]iology [facility] [address] [place] [address] Right shoulder pain, unspecified chronicity Discharge Disposition: Discharge to home or self care 11/27/2024 11:00 AM CDT Office Visit [facility] Medicine Orthopaedic Surgery [address] [facility] 2nd Floor [address] [place] [address] Narciso Valverde PA Rotator cuff arthropathy, right (Primary Dx); Right shoulder pain, unspecified chronicity 11/14/2024 1:42 PM CDT - 11/14/2024 11:59 PM CDT Hospital Encounter [facility] Medical Office Bldg [address] [place] [phone] Type 2 diabetes mellitus with hyperglycemia, with long-term current use of insulin (HCC) Discharge Disposition: Discharge to home or self care 11/14/2024 10:30 AM CDT Office Visit [facility] Medical [facility] Family Medicine at [address] [place] [address] Fabiana Whitney PA Type 2 diabetes mellitus with hyperglycemia, with long-term current use of insulin (HCC) (Primary Dx); Gastroesophageal reflux disease without esophagitis; Essential hypertension; RAF (generalized anxiety disorder); Mixed hyperlipidemia; Prostate cancer screening; Skin lesion of right leg 11/14/2024 Results Follow-Up [facility] Family Medicine at [address] [place] [address] Fabiana Whitney PA Albumin Creatinine Ratio, Urine from Last 3 Months Immunizations Immunization Administration Dates Next Due Influenza, Trivalent, Preser vative Free, Intramuscular 12/25/2024 Influenza, Unspecified 11/14/2024(Deferr ed: Patient Refused),11/29/2023(Deferred: Patient Refused),12/17/2022(Deferred: Patient Refused),12/17/2021(Deferred: Patient Refused),11/28/2020(Deferred: Patient Refused),04/23/2020(Deferred: Patient Refused) Tdap 09/10/2015 Surgical History Surgery Date Site/Laterality Comments VASECTOMY 02/29/2004 - 02/27/2005 HERNIA REPAIR 02/29/2008 - 02/27/2009 CARDIAC ELECTROPHYSIOLOGY PROCEDURE 12/24/2024 N/A Procedure: LEADLESS, SINGLE CHAMBER PACEMAKER (PPM) INSERTION; Surgeon: Nixon Parsons MD PhD; Location: [facility] EP LAB; Service: Cardiovascular; Laterality: N/A; Medical devices from this surgery are in the Medical Devices section. Medical History Medical History Date Comments Diabetes mellitus Neuropathy in diabetes Gastric reflux Gout Hypertension CVA (cerebral vascular accident) (HCC) HORACE (obstructive sleep apnea) Family History Medical History Relation Name Comments [...] Passive Smoke Exposure: Never Smokeless Tobacco: Never Tobacco Cessation:Ready to Q uit: No; Counseling Given: Yes Alcohol Use Standard Drinks/Week Comments Not Currently [...] week 12/24/2024 How often do you attend chur or uatsdin services? Never 12/24/2024 Do you belong to any clubs o r organizations such as judaism groups, unions, fraternal or athletic groups, or [...] money to buy more. Never true 12/25/19 25 Within the past 12 months, t he [...] any time in the past 12 m [facility], were you homeless or living in a detention (including now)? No 12/24/2024 [facility] Utilities Answer Date Recorded In the past 12 months has th e [employer], gas, oil, or water company threatened to [...] on file Legal Sex Male 12:40 AM ACCOUNTANT SYSTEMS Gender Identity Not on file Sexual Orientation Not on file Last Filed Vital Signs Vital Sign Reading Time Taken Comments Blood Pressure 158/88 01/31/2025 10:19 AM ACCOUNTANT SYSTEMS Pulse 82 01/31/2025 10:19 AM ACCOUNTANT SYSTEMS Temperature 36.2 C (97.2 F) 01/31/2025 10:19 AM ACCOUNTANT SYSTEMS Respiratory Rate 18 12/25/2024 6:07 AM CDT Oxygen Saturation 98% 01/31/2025 10: 19 AM ACCOUNTANT SYSTEMS Inhaled Oxygen Concentration - - Weight 82.5 kg (181 lb 14.4 oz) 025 10:19 AM ACCOUNTANT SYSTEMS Height 175.3 cm (5' 9.02) 01/31/2025 1 0:19 AM ACCOUNTANT SYSTEMS Body Mass Index 26.85 01/31/2025 10:19 AM ACCOUNTANT SYSTEMS Plan of Treatment Health Maintenance Due Date Last Done Comments Hepatitis B Screening 05/21/1979 Pneumococcal vaccine <65 (1 of 2 - PCV) 1980 Zoster Vaccine (1 of 2) 05/21/2011 Foot Exam 12/28/2022 12/28/2021, 12/28/2021 Regular Well Visit/Exam 18-64 09/19/2024 09/20/2023, 06/08/2021 Covid-19 Vaccine (4 - 2024-2 6 season) 2024 03/27/2021, 06/08/2020, 05/13/2020 Dilated Eye Exam 05/22/2025 05/22/2024, , 07/06/2023 Hemoglobin A1C 07/08/2025 01/08/2025, 11/28, 10/08/2024, Additional history exists DTaP/Tdap/Td Vaccine (2 - Td or Tdap) 09/09/2025 09/10/2015 Prostate Cancer Screening-PSA 11/02/2025, 06/29/2022, 01/04/2022, Additional history exists Albumin Creatinine Ratio, Urine 11/14/2025 11/14/2024, 11/03/2023, 08/09/2022 Lipid Panel 12/22/2025 12/22/2024, 11/29, 09/25/2024, Additional history exists eGFR 12/24/2025 12/24/2024, 11/29, 12/23/2024, Additional history exists Depression Screening 01/01/2026 01/01/2025, 12/21/2024, 11/14/2024, Additional history exists Colon Cancer Screening-Colonoscopy 09/20/2028 09/21/2023, 08/01/2017 Colon Cancer Screening-CT Colonography Discontinued 09/21/2023, 08/01/2017 Colon Cancer Screening-DNA Stool Discontinued 09/21/19, 08/01/2017 Colon Cancer Screening-FIT Discontinued 09/21/2023, Colon Cancer Screening-Sigmoidoscopy Discontinued 09/21/2023, 08/01/2017 Hepatitis C Screening Completed 12/21/2024, 025 Influenza Vaccine Discontinued 12/25/2024 Medical Devices Implanted Type Area Television Journalist Device Identifier Shelf Expiration Date Model / Serial / Lot [employer] Micra 2 Av Synchronous Leadless Ventricular Pacemaker [id number] - [id number] - [id number] Implanted:Qty: 1 on 12/24/2024 by Nixon Parsons MD PhD at [facility] Pacemaker [employer] [id number] 01/25/2026 [id number] / [id number] / [id number] [employer] System Closure Repair Femoral Artery Suture Mediated Perclose Prostyle 24066-74 - [id number] - [id number] Implanted:Qty: 1 on 12/24/2024 by Nixon Parsons MD PhD at [facility] Vascular Closure Device Right: Femoral Vein [employer] 09/27/2026 [id number] / [id number] / [id number] [employer] System Closure Repair Femoral Artery Suture Mediated Perclose Prostyle 09279-19 - [id number] - [id number] Implanted:Qty: 1 on 12/24/2024 by Nixon Parsons MD PhD at [facility] Vascular Closure Device Right: Femoral Vein [employer] 09/27/2026 [id number] / [id number] / [id number] Procedures Procedure Name Priority Date/Time Associated Diagnosis Comments POCT HEMOGLOBIN A1C Routine 01/08/2025 2 :52 PM ACCOUNTANT SYSTEMS Type 2 diabetes mellitus with hyperglycemia, unspecified whether terminal gauger supervisor insulin use (HCC) POCT GLUCOSE Routine 01/08/2025 2:49 PM ACCOUNTANT SYSTEMS Type 2 diabetes mellitus with hyperglycemia, unspecified whether correction insulin use (HCC) MCT - MOBILE CARDIAC TELEMETRY EVENT MONITOR Routine 12/25/2024 2:54 PM CDT Cerebrovascular accident (CVA), unspecified mechanism (HCC) POCT GLUCOSE DEVICE Routine 12/25/2024 1 2:59 PM CDT POTASSIUM, WHOLE BLOOD STAT 12/25/2024 10:38 AM CDT ANTITHROMBIN Routine 12/25/2024 10:38 AM CDT PROTEIN S ANTIGEN, FREE Routine 12/25/2024 10:38 AM CDT PROTEIN C ACTIVITY Routine 12/25/2024 10 :38 AM CDT LUPUS ANTICOAGULANT PANEL PLUS REFLEXES Routine 12/25/2024 10:38 AM CDT CARDIOLIPIN ANTIBODY, IGM Routine 12/25/2024 10:38 AM CDT CARDIOLIPIN ANTIBODY, IGG Routine 12/25/2024 10:38 AM CDT BETA 2 GLYCOPROTEIN IGM AB Routine 12/25/2024 10:38 AM CDT BETA 2 GLYCOPROTEIN IGG AB Routine 12/25/2024 10:38 AM CDT F5 (FVL) AND F2 (PROTHROMBIN) MUTATIONS Timed 12/25/2024 10:38 AM CDT MAGNESIUM Timed 12/25/2024 10:38 AM CDT POCT GLUCOSE DEVICE Routine 12/25/2024 1 0:06 AM CDT XR CHEST PA LATERAL 2 VIEWS Timed 12/25/2024 9:13 AM CDT EGFR Routine 12/24/2024 9:10 PM CDT MAGNESIUM Routine 12/24/2024 9:10 PM CDT COMPREHENSIVE METABOLIC PANEL Routine 12/24/2024 9:10 PM CDT POCT GLUCOSE DEVICE Routine 12/24/2024 9 :00 PM CDT POCT GLUCOSE DEVICE Routine 12/24/2024 7 :11 PM CDT LEADLESS, SINGLE CHAMBER PACEMAKER (PPM) INSERTION Routine 12/24/2024 6:11 PM CDT Syncope and collapse POCT GLUCOSE DEVICE Routine 12/24/2024 4 :50 PM CDT POCT GLUCOSE DEVICE Routine 12/24/2024 1 1:15 AM CDT MAGNESIUM Timed 12/24/2024 9:41 AM CDT POCT GLUCOSE DEVICE Routine 12/24/2024 7 :31 AM CDT POCT GLUCOSE DEVICE Routine 12/23/2024 1 0:12 PM CDT EGFR Routine 12/23/2024 10:05 PM CDT MAGNESIUM Routine 12/23/2024 10:05 PM CDT B CHECK SAMPLE STAT 12/23/2024 10:05 PM CDT PROTIME-INR Routine 12/23/2024 10:05 PM CDT COMPREHENSIVE METABOLIC PANEL Routine 12/23/2024 10:05 PM CDT TYPE AND SCREEN Timed 12/23/2024 6:08 PM CDT POCT GLUCOSE DEVICE Routine 12/23/2024 4 :24 PM CDT POCT GLUCOSE DEVICE Routine 12/23/2024 1 1:46 AM CDT MAGNESIUM Timed 12/23/2024 10:14 AM CDT ECG 12-LEAD STAT 12/23/2024 8:52 AM CDT POCT GLUCOSE DEVICE Routine 12/23/2024 7 :42 AM CDT EGFR Routine 12/23/2024 1:16 AM CDT MAGNESIUM Routine 12/23/2024 1:16 AM CDT APTT Timed 12/23/2024 1:16 AM CDT PROTIME-INR Timed 12/23/2024 1:16 AM CDT FOLATE Routine 12/23/2024 1:16 AM CDT VITAMIN B6 Routine 12/23/2024 1:16 AM CDT NIACIN (VITAMIN B3) Routine 12/23/2024 1 :16 AM CDT VITAMIN B1 Routine 12/23/2024 1:16 AM CDT VITAMIN B12 Routine 12/23/2024 1:16 AM CDT VITAMIN K Routine 12/23/2024 1:16 AM CDT VITAMIN E Routine 12/23/2024 1:16 AM CDT VITAMIN D 25 HYDROXY Routine 12/23/2024 1:16 AM CDT VITAMIN A Routine 12/23/2024 1:16 AM CDT CBC WITHOUT DIFFERENTIAL Routine 12/23/2024 1:16 AM CDT COMPREHENSIVE METABOLIC PANEL Routine 12/23/2024 1:16 AM CDT INFECTION PREVENTION ROSIE AURIS PCR, SURVEILLANCE Routine 12/23/2024 1:16 AM CDT HIV 1/2 ANTIBODY PLUS P24 ANTIGEN Timed 12/23/2024 1:16 AM CDT POCT GLUCOSE DEVICE Routine 12/22/2024 8 :07 PM CDT US CAROTIDS DUPLEX BILATERAL IP Routine 12/22/2024 7:21 PM CDT POCT GLUCOSE DEVICE Routine 12/22/2024 6 :12 PM CDT LIPID PANEL STAT 12/22/2024 6:12 PM CDT EGFR STAT 12/22/2024 6:12 PM CDT CBC WITHOUT DIFFERENTIAL STAT 12/22/2024 6:12 PM CDT MAGNESIUM STAT 12/22/2024 6:12 PM CDT COMPREHENSIVE METABOLIC PANEL STAT 12/22/2024 6:12 PM CDT EEG Routine 12/22/2024 4:41 PM CDT POCT GLUCOSE DEVICE Routine 12/22/2024 1 1:45 AM CDT EGFR Routine 12/22/2024 4:14 AM CDT DIFFERENTIAL AUTO Routine 12/22/2024 4:1 4 AM CDT COMPREHENSIVE METABOLIC PANEL Routine 12/22/2024 4:14 AM CDT CBC WITH AUTO DIFFERENTIAL Routine 12/22/2024 4:14 AM CDT POCT GLUCOSE DEVICE Routine 12/21/2024 7 :46 PM CDT ECG 12-LEAD Routine 12/21/2024 4:44 PM CDT POCT GLUCOSE DEVICE Routine 12/21/2024 4 :17 PM CDT HEPATITIS PANEL, ACUTE Routine 12/21/2024 3:02 PM CDT POCT GLUCOSE DEVICE Routine 12/21/2024 1 2:23 PM CDT EEG Routine 12/21/2024 11:41 AM CDT POCT GLUCOSE DEVICE Routine 12/21/2024 9 :18 AM CDT US RUQ IP Routine 12/21/2024 9:00 AM CDT POCT GLUCOSE DEVICE Routine 12/21/2024 7 :53 AM CDT EGFR Routine 12/21/2024 5:28 AM CDT DIFFERENTIAL AUTO Routine 12/21/2024 5:2 8 AM CDT COMPREHENSIVE METABOLIC PANEL Routine 12/21/2024 5:28 AM CDT CBC WITH AUTO DIFFERENTIAL Routine 12/21/2024 5:28 AM CDT POCT GLUCOSE DEVICE Routine 12/21/2024 1 2:13 AM CDT POCT GLUCOSE DEVICE Routine 12/20/2024 8 :55 PM CDT POCT GLUCOSE DEVICE Routine 12/20/2024 8 :54 PM CDT POCT GLUCOSE DEVICE Routine 12/20/2024 4 :09 PM CDT POCT GLUCOSE DEVICE Routine 12/20/2024 1 2:52 PM CDT POCT GLUCOSE DEVICE Routine 12/20/2024 7 :57 AM CDT EGFR Routine 12/20/2024 4:10 AM CDT DIFFERENTIAL AUTO Routine 12/20/2024 4:1 0 AM CDT COMPREHENSIVE METABOLIC PANEL Routine 12/20/2024 4:10 AM CDT CBC WITH AUTO DIFFERENTIAL Routine 12/20/2024 4:10 AM CDT POCT GLUCOSE DEVICE Routine 12/19/2024 8 :[address] HEAD WO CONTRAST ED Urgent/IP Urgent 12/19/2024 5:28 PM CDT POCT GLUCOSE DEVICE Routine 12/19/2024 4 :33 PM CDT MCT - MOBILE CARDIAC TELEMETRY EVENT MONITOR Routine 12/19/2024 3:56 PM CDT Syncope, unspecified syncope type [R55] POCT GLUCOSE DEVICE Routine 12/19/2024 1 1:05 AM CDT POCT GLUCOSE DEVICE Routine 12/19/2024 7 :10 AM CDT EGFR Routine 12/19/2024 4:12 AM CDT DIFFERENTIAL AUTO Routine 12/19/2024 4:1 2 AM CDT COMPREHENSIVE METABOLIC PANEL Routine 12/19/2024 4:12 AM CDT CBC WITH AUTO DIFFERENTIAL Routine 12/19/2024 4:12 AM CDT POCT GLUCOSE DEVICE Routine 12/19/2024 3 :46 AM CDT POCT GLUCOSE DEVICE Routine 12/18/2024 1 1:42 PM CDT POCT GLUCOSE DEVICE Routine 12/18/2024 7 :37 PM CDT POCT GLUCOSE DEVICE Routine 12/18/2024 4 :12 PM CDT TRANSTHORACIC ECHO (TTE) COMPLETE W DOPPLER/CF WO CONTRAST Routine 12/18/2024 2:44 PM CDT CTA HEAD NECK W WO CONTRAST IP Routine 12/18/2024 1:46 PM CDT REHANA QUALITATIVE WITH REFLEX TO REHANA QUANTITATIVE Routine 12/18/2024 11:56 AM CDT SMOOTH MUSCLE ANTIBODY, QUANTITATIVE Routine 12/18/2024 11:56 AM CDT MITOCHONDRIAL ANTIBODIES, QUALITATIVE Routine 12/18/2024 11:56 AM CDT IRON PROFILE W/ IBC Routine 12/18/2024 1 1:56 AM CDT CERULOPLASMIN Routine 12/18/2024 11:56 AM CDT POCT GLUCOSE DEVICE Routine 12/18/2024 1 1:09 AM CDT POCT GLUCOSE DEVICE Routine 12/18/2024 7 :43 AM CDT POCT GLUCOSE DEVICE Routine 12/18/2024 7 :24 AM CDT POCT GLUCOSE DEVICE Routine 12/18/2024 7 :04 AM CDT EGFR Routine 12/18/2024 4:30 AM CDT DIFFERENTIAL AUTO Routine 12/18/2024 4:3 0 AM CDT LIPID PANEL Routine 12/18/2024 4:30 AM CDT BASIC METABOLIC PANEL Routine 12/18/2024 4:30 AM CDT CBC WITH AUTO DIFFERENTIAL Routine 12/18/2024 4:30 AM CDT POCT GLUCOSE DEVICE Routine 12/17/2024 7 :21 PM CDT MRI BRAIN EPILEPSY W WO CONTRAST IP Routine 12/17/2024 5:42 PM CDT POCT GLUCOSE DEVICE Routine 12/17/2024 3 :05 PM CDT EEG Routine 12/17/2024 1:56 PM CDT POCT GLUCOSE DEVICE Routine 12/17/2024 1 2:18 PM CDT POCT GLUCOSE DEVICE Routine 12/17/2024 8 :31 AM CDT TROPONIN T HIGH-SENSITIVITY Routine 12/17/2024 4:17 AM CDT EGFR Routine 12/17/2024 4:17 AM CDT DIFFERENTIAL AUTO Routine 12/17/2024 4:1 7 AM CDT BASIC METABOLIC PANEL Routine 12/17/2024 4:17 AM CDT CBC WITH AUTO DIFFERENTIAL Routine 12/17/2024 4:17 AM CDT HEPATITIS PANEL, ACUTE Routine 12/17/2024 4:17 AM CDT DRUGS OF ABUSE SCREEN, URINE WITHOUT CONFIRMATION Routine 12/16/2024 9:05 PM CDT POCT GLUCOSE DEVICE Routine 12/16/2024 8 :33 PM CDT PROLACTIN STAT 12/16/2024 5:43 PM CDT LACTATE STAT 12/16/2024 5:43 PM CDT EGFR Routine 12/16/2024 5:42 PM CDT COMPREHENSIVE METABOIC PANEL, SERUM Routine 12/16/2024 5:42 PM CDT ECG 12-LEAD STAT 12/16/2024 5:[address] ABDOMEN PELVIS W CONTRAST ED 12/16/2024 1:[address] HEAD WO CONTRAST ED 12/16/2024 1 :02 PM CDT ECG 12-LEAD STAT 12/16/2024 12:03 PM CDT ETHANOL STAT 12/16/2024 10:54 AM CDT PRO B-TYPE NATRIURETIC PEPTIDE STAT 12/16/2024 10:54 AM CDT MAGNESIUM STAT 12/16/2024 10:54 AM CDT EGFR STAT 12/16/2024 10:54 AM CDT DIFFERENTIAL AUTO STAT 12/16/2024 10: 54 AM CDT LIPASE STAT 12/16/2024 10:54 AM CDT COMPREHENSIVE METABOLIC PANEL STAT 12/16/2024 10:54 AM CDT CBC WITH AUTO DIFFERENTIAL STAT 12/16/2024 10:54 AM CDT POCT GLUCOSE DEVICE Routine 12/11/2024 1 2:37 PM CDT POCT GLUCOSE DEVICE Routine 12/11/2024 8 :21 AM CDT EGFR Routine 12/11/2024 4:21 AM CDT TSH Routine 12/11/2024 4:21 AM CDT T4, FREE Routine 12/11/2024 4:21 AM CDT DIFFERENTIAL AUTO Routine 12/11/2024 4:2 1 AM CDT THYROID PEROXIDASE ANTIBODY Routine 12/11/2024 4:21 AM CDT BASIC METABOLIC PANEL Routine 12/11/2024 4:21 AM CDT CBC WITH AUTO DIFFERENTIAL Routine 12/11/2024 4:21 AM CDT POCT GLUCOSE DEVICE Routine 12/11/2024 3 :53 AM CDT POCT GLUCOSE DEVICE Routine 12/10/2024 1 1:50 PM CDT SODIUM, URINE, RANDOM Routine 12/10/2024 8:35 PM CDT OSMOLALITY, URINE Routine 12/10/2024 8:3 5 PM CDT URINALYSIS AND REFLEX TO MICROSCOPIC Routine 12/10/2024 8:35 PM CDT POCT GLUCOSE DEVICE Routine 12/10/2024 8 :13 PM CDT POCT GLUCOSE DEVICE Routine 12/10/2024 6 :47 PM CDT XR ABDOMEN AP 1 VIEW IP Routine 12/10/2024 5:35 PM CDT EGFR Routine 12/10/2024 4:50 PM CDT T4, FREE Routine 12/10/2024 4:50 PM CDT DIFFERENTIAL AUTO Routine 12/10/2024 4:5 0 PM CDT THYROID FUNCTION CASCADE Routine 12/10/2024 4:50 PM CDT OSMOLALITY, BLOOD Routine 12/10/2024 4:5 0 PM CDT HEMOGLOBIN A1C Routine 12/10/2024 4:50 PM CDT COMPREHENSIVE METABOLIC PANEL Routine 12/10/2024 4:50 PM CDT CBC WITH AUTO DIFFERENTIAL Routine 12/10/2024 4:50 PM CDT PHOSPHORUS Routine 12/10/2024 4:50 PM CDT MAGNESIUM Routine 12/10/2024 4:50 PM CDT POCT GLUCOSE DEVICE Routine 12/10/2024 4 :42 PM CDT ECG 12-LEAD STAT 12/10/2024 3:37 PM CDT URINALYSIS AND REFLEX TO MICROSCOPIC AND CULTURE STAT 12/10/2024 10:56 AM CDT EGFR STAT 12/10/2024 10:52 AM CDT DIFFERENTIAL AUTO STAT 12/10/2024 10: 52 AM CDT LIPASE STAT 12/10/2024 10:52 AM CDT COMPREHENSIVE METABOLIC PANEL STAT 12/10/2024 10:52 AM CDT CBC WITH AUTO DIFFERENTIAL STAT 12/10/2024 10:52 AM CDT XR SHOULDER RIGHT 2 OR MORE VIEWS Schedule Routine, Read Routine (OP Routine) 11/27/2024 11:16 AM CDT Right shoulder pain, unspecified chronicity ALBUMIN CREATININE RATIO, URINE Routine 11/14/2024 11:20 AM CDT Type 2 diabetes mellitus with hyperglycemia, with long-term current use of insulin (HCC) DIABETIC EYE EXAM Routine 05/22/2024 PSA SCREEN Routine 11/03/2023 1:13 PM CDT Prostate cancer screening COLONOSCOPY Routine 09/21/2023 from Last 3 Months or Most Recently Relevant to Health Maintenance Results * (ABNORMAL) POCT hemoglobin A1c (01/08/2025 2:52 PM ACCOUNTANT SYSTEMS) Hemoglobin A1C, POC 9.2(A) 4.0 - 5.6 % Blood 01/08/2025 2:52 PM [facility]OUNT[facility] SYSTEMS Holley Aguilar MD POINT OF CARE TEST ORDERABLE S Final Result * POCT glucose (01/08/2025 2:49 PM ACCOUNT[facility] SYSTEMS) Glucose Blood, POC 273 Normal Fasting 70 - 100, Random <200 mg/dL Blood 01/08/2025 2:49 PM [facility]OUNT[facility] SYSTEMS Holley Aguilar MD POINT OF CARE TEST ORDERABLE S Final Result * MCT Mobile Cardiac Telemetry Event Monitor (12/25/2024 2:54 PM CDT) Anatomical Region Laterality Modality Electrocardiogra phy 12/25/2024 2:53 PM CDT Narrative 01/21/2025 11:[address] [facility] [place] [address] CARDIAC EVENT MONITOR REPORT Patient Name: SAMANTHA MORENO R : 1960 (64y 7m) Sex: M Study Date: 12/25/2024 02:53:53 PM Ht(Inch): Wt(Lb): BSA: Tech: Location: [id number] Order Provider: BASIM CHAMBERS BMI: Ref Provider: BASIM CHAMBERS PROCEDURES: Event Report: MCT MOBILE CARDIAC TELEMETRY EVENT MONITOR [[id number]]. Enrollment Period: 2024-12-25 00:00:00 through 2025-01-16 00:00:00. Hookup: Hookup Tech: Jocelyn Herrera. Patient Instructions: Patient understood directions and use of equipment (Patient Hookup at Home), tech educated patient and applied the monitor, patient picked up device from office and understand directions and use of the equipment and patient given monitor in office during appointment, patient understands directions and use of equipment. Location: [facility]. INDICATIONS: I63.9 Cerebral infarction, unspecified. FINDINGS: Event Data: Min Rate: 55 BPM Min Rate Timestamp: 2025-01-07 05:52:00 Max Rate: 125 BPM Max Rate Timestamp: 2025-01-09 14:08:00 Mean Rate: 75 BPM SIGNIFICANT PAUSES: 0 >3 sec SUMMARY: The patient's monitoring period was 12/25/2024 - 01/16/2025. Baseline sample showed Sinus Rhythm w/Couplet PVCs/PVCs with a heart rate of 71.4 bpm. There were 0 critical, 0 serious, and 36 stable events that occurred. Short runs of wide complex rhythm suggest polymorphic VT vs aberrancy. CONCLUSIONS: 1. The patient's monitoring period was 12/25/2024 - 01/16/2025. Baseline sample showed Sinus Rhythm w/Couplet PVCs/PVCs with a heart rate of 71.4 bpm. There were 0 critical, 0 serious, and 36 stable events that occurred. Short runs of wide complex rhythm suggest polymorphic VT vs aberrancy. 2. I have reviewed the PDF and all the ECG strips. I agree with the interpretations as detailed in the report. 3. The PDF can be found in the [facility] Patient chart. Please go to the Cardiology tab, click on the holter or event exam. Scroll to bottom where the ORDER-LEVEL Documents reside and click the blue link to the pdf. Electronically Signed By: Marshall Alvarez Jr., M.D. 01/21/2025 10:18:03 PM ACCOUNTANT SYSTEMS Procedure Note Marshall Alvarez MD PhD - 01/21/2025 [facility] Card[facility] [place] [address] CARDIAC EVENT MONITOR REPORT Patient Name: SAMANTHA MORENO R : 1960 (64y 7m) Sex: M Study Date: 12/25/2024 02:53:53 PM Ht(Inch): Wt(Lb): BSA: Tech: Location: [id number] Order Provider: BASIM CHAMBERS BMI: Ref Provider: BASIM CHAMBERS PROCEDURES: Event Report: MCT MOBILE CARDIAC TELEMETRY EVENT MONITOR [[id number]]. Enrollment Period: 2024-12-25 00:00:00 through 2025-01-16 00:00:00. Hookup: Hookup Tech: Jocelyn Herrera. Patient Instructions: Patient understood directions and use of equipment(Patient Hookup at Home), tech educated patient and applied the monitor, patient picked updevice from office and understand directions and use of the equipment and patientgiven monitor in office during appointment, patient understands directions and use ofequipment. Location: [facility]. INDICATIONS: I63.9 Cerebral infarction, unspecified. FINDINGS: Event Data: Min Rate: 55 BPM Min Rate Timestamp: 2025-01-07 05:52:00 Max Rate: 125 BPM Max Rate Timestamp: 2025-01-09 14:08:00 Mean Rate: 75 BPM SIGNIFICANT PAUSES: 0 >3 sec SUMMARY: The patient's monitoring period was 12/25/2024 - 01/16/2025.Baseline sample showed Sinus Rhythm w/Couplet PVCs/PVCs with a heart rate of 71.4 bpm.There were 0 critical, 0 serious, and 36 stable events that occurred. Short runs ofwide complex rhythm suggest polymorphic VT vs aberrancy. CONCLUSIONS: 1. The patient's monitoring period was 12/25/2024 - 01/16/2025. Baselinesample showed Sinus Rhythm w/Couplet PVCs/PVCs with a heart rate of 71.4 bpm. There were0 critical, 0 serious, and 36 stable events that occurred. Short runs of wide complexrhythm suggest polymorphic VT vs aberrancy. 2. I have reviewed the PDF and all the ECG strips. I agree with theinterpretations as detailed in the report. 3. The PDF can be found in the Epic Patient chart. Please go to theCardiology tab, click on the holter or event exam. Scroll to bottom where the ORDER-LEVELDocuments reside and click the blue link to the pdf. Electronically Signed By: Marshall Alvarez Jr., M.D. 01/21/2025 10:18:03 PM ACCOUNTANT SYSTEMS Basim Chambers MD CV CARDIAC SERVICES PROCEDURES Final Result * (ABNORMAL) POCT glucose (12/25/2024 12:59 PM CDT) [facility] Glucose, POC 268(H) 70 - 199 mg/dL Blood 12/25/2024 12:5 9 PM CDT 12/25/2024 12:59 PM CDT Basim Chambers MD LAB POCT ORDERABLES - DEVICE Final Result Performing Organization Address City/State/[facility] Co de Phone Number [facility] Department [place] [address] * F5 (FVL) and F2 (Prothrombin) Mutations (12/25/2024 10:38 AM CDT) [facility] Factor V Leiden F5 Normal Normal [facility] Factor V Leiden Interpretation The patient is negative for the Factor V Leiden mutation (F5:c.1601G>A, p.R534Q) with two copies of the normal allele. [facility] Prothrombin F2 Mutation Normal Normal [facility] Prothrombin F2 Interpretation The patient is negative for the prothrombin gene mutation (F2 c.*97G>A (I01648I)) with two copies of the normal allele). [facility] FVL and Prothrombin Specimen Blood [facility] FVL and Prothrombin Result Review Final report reviewed by: DAVID Walls, Tank Car Cleaner, on 12/27/2024 08:40:32 CDT. [facility] Comment: Interpretive Data Testing was performed simultaneously for the presence of the F5:c.1601G>A(R534Q) (aka Factor V Leiden) mutation and the F2:c.*97G>A mutation. The presence of either of these F5 or F2 variants increases the relative risk of venous thromboembolism (VTE) but is not predictive of a thrombotic event. The population allele frequency for F5:c.1601G>A(R534Q) is up to 5% in persons of ancestry and 1.2% in those with ancestry. The reported frequency among other ethnicities is less than 3%. The increased risk of VTE for adults is 4-8 fold for F5 heterozygotes and 80-fold higher for F5 homozygotes. The population allele frequency for the F2:c.*97G>A mutation is approximately 1-3% in persons of ancestry and 0.3% in those with ancestry. The reported frequency among other ethnicities is less than 2%. The increased risk of VTE for adults is 2-5 fold for F2 heterozygotes and is higher, though not well-defined, for F2 homozygotes. The risk of VTE in individuals heterozygous for both F2 & F5 is 20-fold higher. Absence of these mutations does not indicate a lack of risk for VTE. Genetic counseling is recommended. Method: This assay utilizes the [employer] Xpert FII & FV qualitative in vitro diagnostic genotyping test for the detection of targeted FV and F2 alleles from sodium citrate or EDTA anticoagulated whole blood. This test is performed on the [employer] System which automates and integrates sample purification, nucleic acid amplification, and detection of the target sequence in whole blood using real- time Polymerase Chain Reaction (PCR) assays based on Scorpion PCR technology. Note: F5 (NM_000130.5):c.1601G>A, R534Q or Factor V Leiden is also referred to as c.1691G>A, p.R506Q in the literature. FDA statement: The [employer] Xpert FII & FV qualitative in vitro diagnostic genotyping test for use on specimens from adult populations. The electronic tech did not evaluate testing on samples from pediatric patients (<18 years of age). The performance characteristics of this test on specimens from pediatric patients have been assessed by the [facility] and deemed acceptable for clinical reporting. The [employer] Xpert FII & FV genotyping test is FDA-cleared for testing unprocessed peripheral blood specimens containing either EDTA or sodium citrate. Processing of specimens submitted for reflex testing requires modifications from the electronic tech's instructions. The performance characteristics of those modifications, if necessary, have been determined by [facility] in a manner consistent with CLIA requirements. Limitations and interfering substances: The performance of the Xpert Factor II & Factor V Assay was validated using the procedures provided in the package insert only. Results from the Xpert Factor II & Factor V Assay should be interpreted in conjunction with other laboratory and clinical data available to the clinician. Rare Factor V variants including but not limited to: F5:c.1599G>A, F5:c.1602A>C, F5:c.1606A>G, rare Factor II mutations and any additional SNPs in the probe binding region, may interfere with the target detection and yield an invalid result. Patients on heparin therapy and receiving blood transfusions may have interfering substances that potentially lead to invalid or erroneous results. References: 1. [employer] Xpert Factor II and Factor V package insert. [id number], Rev. B. September 2016. 2. Taras WW, et al; [facility] Factor V Leiden Working Group. Yue Med. 2001. 3:139- 48. 3. WILLIAM Krause, et al. Nature. 2020. 581:434 4 43 4. Annalise LEONARDO. Factor V Leiden Thrombophilia. 1998July 11 [Updated 2018 Mar 03]. Available from: https://www.ncbi.nlm.nih.gov/books/BSQ1689/ 5. Manas PM, et al. N Engl J Med. 1995. 332:912-17. 6. Sai MCDOWELL and Blake PH. J Thromb Haemost. 2009. 7 Suppl 1:301 4 . 7. Adithya S., et al. Yue Med. 2018. 20:1489 1 498 This test was performed at: [facility], [facility], CLIA#[id number], Diana Headley, Ph.D., [place], [address], [place] Current interpretive data was last revised 2022. Blood 12/25/2024 10:3 8 AM CDT 12/25/2024 2:27 PM CDT Basim Chambers MD LAB GENETIC TESTING Final Result [facility] Department [place] [address] [facility] * Lupus Anticoagulant Panel plus Reflexes (12/25/2024 10:38 AM CDT) PT 11.7 10.2 - 13.5 sec INR 1.04 0.90 - 1.20 [facility] Comment: Interpretive data Oral anticoagulant therapeutic ranges: Venous thromboembolism prophylaxis or treatment: 2.0-3.0 CARDIOLOGY Standard range: 2.0-3.0 High-intensity range: 2.5-3.5 Refer to indication-specific guidelines for appropriate target ranges for prosthetic heart valve replacement. Current interpretive data was last revised on 2019. aPTT 31 26 - 38 sec [facility] Comment: Interpretive Data Heparin therapeutic range: 66.0 - 100.0 seconds. Range based on correlation with therapeutic heparin activity range of 0.3 - 0.7 Units/mL. Current interpretive data was last revised on 2022. DRVVT screen ratio 0.86 0.00 - 1.20 Ratio [facility] SCT Screen Ratio 0.85 0.00 - 1.16 Ratio [facility] Lupus anticoagulant, interp Negative [facility] Comment: Interpretive data Lupus anticoagulants (LA) are acquired autoantibodies that interfere with invitro clotting in a phospholipid-dependent manner and are associated with an increased risk of thromboembolic events and complications. Routine APTT and PT reagents are not sensitive to inhibition by LA, and should not be used as screening tests. The laboratory follows ISTH 2009 guidelines (Pengo, 2009) for LA testing and interpretation: Two sensitive methods performed in parallel improve sensitivity. One activates the intrinsic pathway (Silica-APTT) and one activates the common pathway (dilute Javier's viper venom time - dRVVT). Each method begins with a SCREEN step, and if neither is prolonged, no further testing is performed and the interpretation is: NO LA DETECTED. If either screening test is prolonged, then additional steps are performed to provide specificity. A POSITIVE LA result occurs if either one or both tests produce a positive CONFIRM result. An INDETERMINATE result means results cannot distinguish between coagulopathy and a weak LA. Consider retesting when PT/INR is less prolonged, if clinical indicated. To support laboratory confirmation of antiphospholipid syndrome, persistence of a positive LA result should be verified by repeat testing at least 12 weeks later (Walt, 2006). Prior to LA testing, the laboratory screens patient plasma samples for evidence of heparin contamination, which is neutralized prior to LA testing, and the following interfering conditions which require canceling LA testing: INR >3.0, fibrinogen < 100 mg/dl, use of direct oral or IV anticoagulants other than heparin. References: 1) Manuel V, Edie A, Gail JH, Orgayathri TL, Andrea M, De Joseluis PG. Update of the guidelines for lupus anticoagulant detection. J Thromb Haemost. 2009; 7:6435-6136. 2. Walt Hernandez. et al. International consensus statement on an update of the classification criteria for definite antiphospholipid syndrome (APS). J Thromb Haemost. 2006; 4:295-306. Current interpretive data was last revised on 2018 Blood 12/25/2024 10:3 8 AM CDT 12/25/2024 12:46 PM CDT us Basim Chambers MD LAB BLOOD ORDERABLES Final Result [facility] Department of Laboratories [place], [place] [id number] * Potassium, whole blood (12/25/2024 10:38 AM CDT) [facility] Potassium, bld 4.4 3.3 - 4.9 mmol/L Blood 12/25/2024 10:3 8 AM CDT 12/25/2024 12:29 PM CDT us Noel López MD LAB BLOOD ORDERABLES Final Re sult Performing Organization Address City/[facility]/ZIP Co de Phone Number [facility] [place] [address] * Cardiolipin antibody, IgG (12/25/2024 10:38 AM CDT) Cardiolipin, IgG <1.6 <=19.9 GPL U/mL Comment: Interpretive Data Negative: <20 GPL U/mL Positive: > or = 20 GPL U/mL Anticardiolipin antibodies are associated with certain clinical events including unexplained arterial and venous thromboemboli, and unexplained morbidity. However, detection of low levels of anticardiolipin antibodies occurs in both healthy individuals and patients with co-morbidities not associated with the antiphospholipid antibody (APA) syndrome including inflammatory and infectious conditions. In order to improve specificity, the International Congress on Antiphospholipid Antibodies recommends ACL antibodies of IgG or IgM isotype present in medium or high titer (e.g. > 40 GPL, or >the 99th percentile), on two or more occasions, at least 12 weeks apart, to support a diagnosis of antiphospholipid syndrome. The cutoff for this assay was developed from data based on the 99th percentile. In addition, the International Congress on Antiphospholipid Antibodies does not recommend testing for IgA MORGAN. These results were obtained with the [employer] 2200 System. Cardiolipin IgG values obtained with different manufacturers' assay methods may not be used interchangeably. Current interpretive data was last revised on 2016. Blood 12/25/2024 10:3 8 AM CDT 12/25/2024 12:44 PM CDT us Basim Chambers MD LAB BLOOD ORDERABLES Final Result Performing Organization Address [facility]/ZIP Co de Phone Number [facility] [place] [address] * Beta 2 glycoprotein IgM Ab (12/25/2024 10:38 AM CDT) Beta-2 glycoprotein I, IgM <1.5 <=19.9 units/mL Comment: Interpretive Data Negative: <20 U/mL Positive: > or = 20 U/mL Beta- 2 glycoprotein 1 (Beta-2 GP1) antibodies are a more specific marker of thrombotic risk. It is expected that some samples will be ACL positive and Beta- 2 GP1 negative. In order to improve specificity, the International Congress on Antiphospholipid Antibodies recommends Beta-2 GP1 antibodies of IgG or IgM isotype (> the 99th percentile), obtained twice, at least 12 weeks apart, to support a diagnosis of antiphospholipid syndrome. The cutoff for this assay was developed from data based on the 99th percentile. The Beta-2 GP1 IgM test can produce false positive results due to cross-reactivity with Rheumatoid factor. These results were obtained with the [employer] 2200 System. Beta-2 GP1 IgM values obtained with different manufacturers' assay methods may not be used interchangeably. Current interpretive data was last revised on 2016. Blood 12/25/2024 10:3 8 AM CDT 12/25/2024 12:44 PM CDT us Basim Chambers MD LAB BLOOD ORDERABLES Final Result [facility] Department [place] [address] * Beta 2 glycoprotein IgG Ab (12/25/2024 10:38 AM CDT) Beta-2 glycoprotein I, IgG <1.4 <=19.9 units/mL Comment: Interpretive Data Negative: <20 U/mL Positive: > or = 20 U/mL Beta-2 glycoprotein 1 (Beta-2 GP1) antibodies are a more specific marker of thrombotic risk. It is expected that some samples will be ACL positive and Beta- 2 CG1hiskawdc. In order to improve specificity, the International Congress on Antiphospholipid Antibodies recommends Beta-2 GP1 antibodies of IgG or IgM isotype (> the 99th percentile), obtained twice, at least 12 weeks apart, to support a diagnosis of antiphospholipid syndrome. The cutoff for this assay was developed from data based on the 99th percentile. These results were obtained with the [employer] 2200 System. Beta 2GP1 IgG values obtained with different manufacturers' assay methods may not be used interchangeably. Current interpretive data was last revised on 2016. Blood 12/25/2024 10:3 8 AM CDT 12/25/2024 12:44 PM CDT us Basim Chambers MD LAB BLOOD ORDERABLES Final Result [facility] Department [place] [address] * Cardiolipin antibody, IgM (12/25/2024 10:38 AM CDT) Cardiolipin, IgM <1.5 <=19.9 MPL U/mL Comment: Interpretive Data Negative: <20 MPL U/mL Positive: > or = 20 MPL U/mL Anticardiolipin antibodies are associated with certain clinical events including unexplained arterial and venous thromboemboli, and unexplained morbidity. However, detection of low levels of anticardiolipin antibodies occurs in both healthy individuals and patients with co-morbidities not associated with the antiphospholipid antibody (APA) syndrome including inflammatory and infectious conditions. In order to improve specificity, the International Congress on Antiphospholipid Antibodies recommends ACL antibodies of IgG or IgM isotype present in medium or high titer (e.g. > 40 MPL, or >the 99th percentile), on two or more occasions, at least 12 weeks apart, to support a diagnosis of antiphospholipid syndrome. The cutoff for this assay was developed from data based on the 99th percentile. In addition, the International Congress on Antiphospholipid Antibodies does not recommend testing for IgA MORGAN. The ACL IgM test can produce false positive results due to cross-reactivity with Rheumatoid factor, dsDNA or certain infectious disease antibodies. These results were obtained with the [employer] 2200 System. Cardiolipin IgM values obtained with different manufacturers' assay methods may not be used interchangeably. Current interpretive data was last revised on 2016. Blood 12/25/2024 10:3 8 AM CDT 12/25/2024 12:44 PM CDT Basim Chambers MD LAB BLOOD ORDERABLES Final Result Performing Organization Address [facility] de Phone Number [facility] [place] [address] * Protein S antigen, free (12/25/2024 10:38 AM CDT) Protein S, free 72 55 - 150 % Blood 12/25/2024 10:3 8 AM CDT 12/25/2024 12:46 PM CDT Basim Chambers MD LAB BLOOD ORDERABLES Final Result Performing Organization Address [facility] de Phone Number [facility] [place] [address] * Protein C activity (12/25/2024 10:38 AM CDT) Protein C 122 60 - 150 % Blood 12/25/2024 10:3 8 AM CDT 12/25/2024 12:46 PM CDT Basim Chambers MD LAB BLOOD ORDERABLES Final Result Performing Organization Address [facility] de Phone Number [facility] [place] [address] * Antithrombin Activity (12/25/2024 10:38 AM CDT) Antithrombin III 124 80 - 125 % Comment: Interpretive Data High concentrations of anti-Xa direct oral anticoagulants can cause Antithrombin activities to be falsely elevated. Current interpretive data was last reviewed 2023 Blood 12/25/2024 10:3 8 AM CDT 12/25/2024 12:46 PM CDT us Basim Chambers MD LAB BLOOD ORDERABLES Final Result Performing Organization Address [facility] de Phone Number [facility] [place] [address] * Magnesium (12/25/2024 10:38 AM CDT) Magnesium 1.9 1.4 - 2.5 mg/dL Blood 12/25/2024 10:3 8 AM CDT 12/25/2024 12:44 PM CDT us Noel López MD LAB BLOOD ORDERABLES Final Re sult Performing Organization Address [facility] de Phone Number [facility] [place] [address] * (ABNORMAL) POCT glucose (12/25/2024 10:06 AM CDT) Glucose, POC 337(H) 70 - 199 mg/dL Blood 12/25/2024 10:0 6 AM CDT 12/25/2024 10:06 AM CDT us Basim Chambers MD LAB POCT ORDERABLES - DEVICE Final Result Performing Organization Address [facility] de Phone Number [facility] [place] [address] * XR Chest PA Lateral 2 Views (12/25/2024 9:13 AM CDT) Anatomical Region Laterality Modality Body, Chest N/A Computed Radiogr aphy 12/25/2024 11:5 0 AM CDT Impressions 12/25/2024 11:50 AM CDT No prior radiograph is available for comparison. A right ventricular leadless pacemaker is seen overlying the right ventricle. No pneumothorax, pleural effusion, pulmonary edema. The heart size is normal. Electronically signed by: Marcus Birch M.D. Narrative 12/25/2024 11:50 AM CDT EXAMINATION: 2 view chest radiograph Procedure Note Marcus Birch MD - 12/25/2024 EXAMINATION: 2 view chest radiograph IMPRESSION: No prior radiograph is available for comparison. A right ventricular leadless pacemaker is seen overlying the right ventricle. No pneumothorax, pleural effusion, pulmonary edema. The heart size is normal. Electronically signed by: Marcus Birch M.D. us Noel López MD IMG XR PROCEDURES Final Resul t * eGFR (12/24/2024 9:10 PM CDT) eGFR >90 >=60 mL/min/1. 73 m2 Comment: Interpretive Data Reference Interval Normal >/= 90 mL/min/1.73m2 Mildly decreased* 60 - 89 mL/min/1.73m2 Mildly to moderately decreased 45 - 59 mL/min/1.73m2 Moderately to severely decreased 30 - 44 mL/min/1.73m2 Severely decreased 15 - 29 mL/min/1.73m2 Kidney Failure < 15 mL/min/1.73m2 *Relative to young adult level Estimated glomerular filtration rate is determined by the 2020 CKD-EPI equation recommended by the National Kidney Foundation (A Unifying Approach to GFR Estimation: Recommendations of the NKF-ASK Task Force on Reassessing the Inclusion of Race in Diagnosing Kidney Disease, JASN 2020). The CKD-EPI equation should not be used for patients with unstable renal function and has not been validated in children and those over 70. Current interpretive data was last reviewed 2020. Blood 12/24/2024 9:10 PM CDT 12/24/2024 9:41 PM CDT us Ike Martinez MD LAB BLOOD ORDERABLES Fi nal Result [facility] Department [place] [address] * Magnesium (12/24/2024 9:10 PM CDT) Pathologist [facility] Magnesium 1.7 1.4 - 2.5 mg/dL Blood 12/24/2024 9:10 PM CDT 12/24/2024 9:35 PM CDT us Noel López MD LAB BLOOD ORDERABLES Final Re sult [facility] Department [place] [address] * (ABNORMAL) Comprehensive metabolic panel (12/24/2024 9:10 PM CDT) Pathologist [facility] Sodium 140 135 - 145 mmol/L Potassium, pl 3.7 3.3 - 4.9 mmol/L [facility] Comment:Hemolyzed; Potassium value may be falsely elevated by as much as 0.3-0.5 mmol/L. Suggest redraw and reanalysis. Chloride 110 97 - 110 mmol/L [facility] CO2 23 22 - 32 mmol/L [facility] Anion gap 7 2 - 15 mmol/L [facility] BUN 8 6 - 25 mg/dL [facility] Creatinine 0.68(L) 0.80 - 1.30 mg/dL [facility] Glucose 124 70 - 199 mg/dL [facility] Comment: Interpretive Data Fasting glucose >/= 126 mg/dl is diagnostic for diabetes. Fasting is defined as no caloric intake for at least 8 hours. Fasting glucose between 100 mg/dl to 125 mg/dl is diagnostic of prediabetes. In a patient with classic symptoms of hyperglycemia or hyperglycemic crisis, a random glucose >/= 200 mg/dl is diagnostic for diabetes. In the absence of unequivocal hyperglycemia, results should be confirmed by repeat testing. The classification and Diagnosis of Diabetes Diabetes Care 202; 46: S19-S40. Current interpretive data was last revised 2022. Calcium 7.1(L) 8.5 - 10.3 mg/dL [facility] Bilirubin, total 0.3 0.1 - 1.2 mg/dL [facility] Protein, pl 5.2(L) 6.5 - 8.5 g/dL [facility] Albumin 3.0(L) 3.5 - 5.0 g/dL [facility] Alk phos 44 40 - 130 Units/L [facility] ALT 126(H) 7 - 55 Units/L [facility] AST 57(H) 10 - 50 Units/L [facility] Comment:Hemolyzed; result ma y be falsely elevated Blood 12/24/2024 9:10 PM CDT 12/24/2024 9:35 PM CDT Noel López MD LAB BLOOD ORDERABLES Final Re sult Performing Organization Address [facility]/ZIP Co de Phone Number [facility] Department [place] [address] * POCT glucose (12/24/2024 9:00 PM CDT) Glucose, POC 118 70 - 199 mg/dL Blood 12/24/2024 9:00 PM CDT 12/24/2024 9:00 PM CDT Noel López MD LAB POCT ORDERABLES - DEVICE Final Result Performing Organization Address [facility] Co de Phone Number [facility] [place] [address] * POCT glucose (12/24/2024 7:11 PM CDT) Glucose, POC 84 70 - 199 mg/dL Blood 12/24/2024 7:11 PM CDT 12/24/2024 7:11 PM CDT Noel López MD LAB POCT ORDERABLES - DEVICE Final Result Performing Organization Address [facility] Co de Phone Number [facility] [place] [address] * LEADLESS, SINGLE CHAMBER PACEMAKER (PPM) INSERTION (12/24/2024 6:11 PM CDT) Anatomical Region Laterality Modality X-Ray Angiograph y Narrative 12/25/2024 9:27 AM CDT [facility] Cardiac Electrophysiology Laboratory [facility] Procedure Report Leadlesss Pacemaker Implantation Procedure Date: 12/24/2024 Patient Name: Samantha Moreno Date of : 1960 Operators: -Teto Lyn M.D. -Davida Godoy MD Indications: Procedures Performed: Leadless pacemaker implantation Patient History: 64 year old man with a history of diabetes, CVA, admitted with syncope. While on telemetry he had prolonged sinus pauses with symptoms. The procedure and its risks, benefits, and alternatives have been discussed with the patient. Questions were answered. He says he understood and wished to proceed. Start Time: 17:24 Finish Time: 18:03 Location: [facility] 7 Fluoroscopy Time: 4.5 min; 118 mGy. Contrast administered: 8 ml. Estimated Blood Loss: 10 ml. Procedure Narrative: After informed consent was obtained, the patient was brought to the EP laboratory in a fasting, nonsedated state. Peripheral IV access was established. Prophylactic antibiotics were administered prior to incision. Continuous ECG, blood pressure, and pulse oximetry monitoring were initiated. Cardioversion patch electrodes were placed on the patient's chest and back. A grounding patch was applied to the skin, as were electrocardiogram monitoring electrodes. General anesthesia was provided by the Anesthesia Service. The inguinal areas were prepped and draped in the usual fashion. Right femoral access was obtained with ultrasound assistance, and the site was dilated serially over an Amplatz SuperStiff guidewire. The 27 Fr introducer was advanced to the mid RA. The Micra deployment apparatus was advanced to the right atrium and deflected to the RV septum. Contrast radiography confirmed a septal position. The device was deployed, and fluoroscopy confirmed engagement of the fixation tines. Pacing/sensing parameters were found to be good. The device tether was cut and removed under fluoroscopic guidance. The deployment apparatus and the introducer were removed. Hemostasis was achieved with the aid the PerClose system using a PreClose technique. Following the procedure, the patient was taken to the recovery area in stable condition. Device data: Generator: [employer] Micra AV2 [id number] Serial number: [id number] Parameters: RV: R-wave amplitude: 5.4 mV Threshold: 0.38 V @ 0.24 ms Impedance: 890 ohms Programming: Pacing Mode: VDD Lower Rate Limit: 60 bpm Uppter Tracking Rate: 120 bpm RV: Pacing output: 2.5 V @ 0.24 ms Sensitivity: 2.0 mV Complications: There were no complications immediately apparent. Conclusions: Successful implantation of a leadless ventricular pacemaker. Follow-up and Recommendations: Bedrest. PA and lateral CXR tomorrow. I was present during the entire procedure and personally composed and confirmed this report. Teto Lyn M.D. supervisor poultry hatchery [facility] [place] Noel López MD CV ELECTROPHYSIOLOGY PROCS Fi nal Result * POCT glucose (12/24/2024 4:50 PM CDT) Glucose, POC 109 70 - 199 mg/dL Blood 12/24/2024 4:50 PM CDT 12/24/2024 4:50 PM CDT Noel López MD LAB POCT ORDERABLES - DEVICE Final Result Performing Organization Address [facility] Co de Phone Number [facility] [place] [address] * POCT glucose (12/24/2024 11:15 AM CDT) Glucose, POC 146 70 - 199 mg/dL Blood 12/24/2024 11:1 5 AM CDT 12/24/2024 11:15 AM CDT Noel López MD LAB POCT ORDERABLES - DEVICE Final Result Performing Organization Address [facility] Co de Phone Number [facility] Department [place] [address] * Magnesium (12/24/2024 9:41 AM CDT) [facility] Magnesium 1.8 1.4 - 2.5 mg/dL Blood 12/24/2024 9:41 AM CDT 12/24/2024 10:07 AM CDT us Noel López MD LAB BLOOD ORDERABLES Final Re sult Performing Organization Address City/[facility] Co de Phone Number [facility] [place] [address] * POCT glucose (12/24/2024 7:31 AM CDT) [facility] Glucose, POC 109 70 - 199 mg/dL Blood 12/24/2024 7:31 AM CDT 12/24/2024 7:31 AM CDT us Noel López MD LAB POCT ORDERABLES - DEVICE Final Result Performing Organization Address [facility] [place] [address] * (ABNORMAL) POCT glucose (12/23/2024 10:12 PM CDT) [facility] Glucose, POC 242(H) 70 - 199 mg/dL Blood 12/23/2024 10:1 2 PM CDT 12/23/2024 10:12 PM CDT Noel López MD LAB POCT ORDERABLES - DEVICE Final Result Performing Organization Address [facility] [place] [address] * eGFR (12/23/2024 10:05 PM CDT) [facility] eGFR >90 >=60 mL/min/1. 73 m2 Comment: Interpretive Data Reference Interval Normal >/= 90 mL/min/1.73m2 Mildly decreased* 60 - 89 mL/min/1.73m2 Mildly to moderately decreased 45 - 59 mL/min/1.73m2 Moderately to severely decreased 30 - 44 mL/min/1.73m2 Severely decreased 15 - 29 mL/min/1.73m2 Kidney Failure < 15 mL/min/1.73m2 *Relative to young adult level Estimated glomerular filtration rate is determined by the 2020 CKD-EPI equation recommended by the National Kidney Foundation (A Unifying Approach to GFR Estimation: Recommendations of the NKF-ASK Task Force on Reassessing the Inclusion of Race in Diagnosing Kidney Disease, JASN 2020). The CKD-EPI equation should not be used for patients with unstable renal function and has not been validated in children and those over 70. Current interpretive data was last reviewed 2020. Blood 12/23/2024 10:0 5 PM CDT 12/23/2024 10:49 PM CDT Ike Martinez MD LAB BLOOD ORDERABLES Fi nal Result Performing Organization Address [facility]/ZIP Co de Phone Number [facility] [place] [address] * Check Sample (12/23/2024 10:05 PM CDT) ABO Rh A Positive [facility] HCLL OTHER 12/23/2024 10:0 5 PM CDT 12/23/2024 10:55 PM CDT us Noel López MD LAB BLOOD ORDERABLES Final Re sult Performing Organization Address City/[facility]/ZIP Co de Phone Number [facility] [place] [address] [facility] * Protime-INR (12/23/2024 10:05 PM CDT) PT 12.0 10.2 - 13.5 sec INR 1.06 0.90 - 1.20 [facility] Comment: Interpretive data Oral anticoagulant therapeutic ranges: Venous thromboembolism prophylaxis or treatment: 2.0-3.0 CARDIOLOGY Standard range: 2.0-3.0 High-intensity range: 2.5-3.5 Refer to indication-specific guidelines for appropriate target ranges for prosthetic heart valve replacement. Current interpretive data was last revised on 2019. Blood 12/23/2024 10:0 5 PM CDT 12/23/2024 10:30 PM CDT Noel López MD LAB BLOOD ORDERABLES Final Re sult Performing Organization Address [facility]/ZIP Co de Phone Number [facility] [place] [address] * Magnesium (12/23/2024 10:05 PM CDT) [facility] Magnesium 2.0 1.4 - 2.5 mg/dL Blood 12/23/2024 10:0 5 PM CDT 12/23/2024 10:42 PM CDT Noel López MD LAB BLOOD ORDERABLES Final Re sult Performing Organization Address [facility] Co de Phone Number [facility] [place] [address] * (ABNORMAL) Comprehensive metabolic panel (12/23/2024 10:05 PM CDT) [facility] Sodium 138 135 - 145 mmol/L Potassium, pl 4.5 3.3 - 4.9 mmol/L [facility] Chloride 104 97 - 110 mmol/L [facility] CO2 27 22 - 32 mmol/L [facility] Anion gap 7 2 - 15 mmol/L [facility] BUN 15 6 - 25 mg/dL [facility] Creatinine 0.80 0.80 - 1.30 mg/dL [facility] Glucose 277(H) 70 - 199 mg/dL [facility] Comment: Interpretive Data Fasting glucose >/= 126 mg/dl is diagnostic for diabetes. Fasting is defined as no caloric intake for at least 8 hours. Fasting glucose between 100 mg/dl to 125 mg/dl is diagnostic of prediabetes. In a patient with classic symptoms of hyperglycemia or hyperglycemic crisis, a random glucose >/= 200 mg/dl is diagnostic for diabetes. In the absence of unequivocal hyperglycemia, results should be confirmed by repeat testing. The classification and Diagnosis of Diabetes Diabetes Care 2021; 46: S19-S40. Current interpretive data was last revised 2022. Calcium 9.1 8.5 - 10.3 mg/dL [facility] Bilirubin, total 0.3 0.1 - 1.2 mg/dL [facility] Protein, pl 6.1(L) 6.5 - 8.5 g/dL [facility] Albumin 3.7 3.5 - 5.0 g/dL [facility] Alk phos 55 40 - 130 Units/L [facility] ALT 180(H) 7 - 55 Units/L [facility] AST 73(H) 10 - 50 Units/L [facility] Blood 12/23/2024 10:0 5 PM CDT 12/23/2024 10:42 PM CDT us Noel López MD LAB BLOOD ORDERABLES Final Re sult [facility] [place] [address] * Type and screen (12/23/2024 6:08 PM CDT) Jordan, indirect Negative ABO Rh A Positive [facility] Blood 12/23/2024 6:08 PM CDT 12/23/2024 7:07 PM CDT Narrative [facility] - 12/23/2024 7:50 PM CDT Has the patient had Daratumumab or Isatuximab in the past 6 months?->Unknown us Noel López MD LAB BLOOD BANK TEST ORDERABLE S Final Result [facility] [place] [address] * (ABNORMAL) POCT glucose (12/23/2024 4:24 PM CDT) Glucose, POC 222(H) 70 - 199 mg/dL Comment:Glu2: RN/MD Notified Glucose comment 1 Glu2: RN/MD Notified [facility] Blood 12/23/2024 4:24 PM CDT 12/23/2024 4:24 PM CDT us Noel López MD LAB POCT ORDERABLES - DEVICE Final Result Performing Organization Address City/[facility]/[place] [address] * POCT glucose (12/23/2024 11:46 AM CDT) Glucose, POC 171 70 - 199 mg/dL Blood 12/23/2024 11:4 6 AM CDT 12/23/2024 11:46 AM CDT us Noel López MD LAB POCT ORDERABLES - DEVICE Final Result Performing Organization Address City/[facility]/[place] [address] * Magnesium (12/23/2024 10:14 AM CDT) [facility] Signature Magnesium 1.9 1.4 - 2.5 mg/dL Blood 12/23/2024 10:1 4 AM CDT 12/23/2024 10:46 AM CDT us Noel López MD LAB BLOOD ORDERABLES Final Re sult [facility] [place] [address] * ECG 12 lead (12/23/2024 8:52 AM CDT) [facility] Ventricular Rate EKG/Min 71 BPM [facility] Atrial Rate 71 BPM [facility] CA-Interval (MSEC) 190 ms [facility] QRS-Interval (MSEC) 78 ms [facility] QT-Interval (MSEC) 430 ms [facility] QTc 467 ms [facility] P [place] 41 degrees [facility] R [place] -27 degrees [facility] T [place] 21 degrees [facility] Diagnosis Sinus rhythm with frequent , and consecutive Premature ventricular complexes Nonspecific ST and T wave abnormality Abnormal ECG When compared with ECG of 21-DEC-2024 16:44, Premature ventricular complexes are now Present Confirmed by NEREIDA BILLY M.D ([id number]) on 12/25/2024 9:37:48 AM [facility] 12/23/2024 8:52 AM CDT 12/25/2024 9:37 AM CDT us Ike Maritnez MD ECG ORDERABLES Final R esult Performing Organization Address [facility] Co de Phone Number [facility] * POCT glucose (12/23/2024 7:42 AM CDT) [facility] Glucose, POC 155 70 - 199 mg/dL Blood 12/23/2024 7:42 AM CDT 12/23/2024 7:42 AM CDT us Noel López MD LAB POCT ORDERABLES - DEVICE Final Result Performing Organization Address City/[facility] Co de Phone Number [facility] [place] [address] * Infection Prevention Rosie auris PCR, surveillance Axilla/Groin (12/23/2024 1:16 AM CDT) [facility] Rosie auris DNA Not Detected Not Detected [facility] Comment: Interpretive Data Testing performed by [facility] Molecular Infectious Disease Laboratory using the Love jaimie [id number] Rosie auris assay. This assay detects DNA from Rosie auris using Real-Time PCR. This assay is laboratory developed and is not cleared by the [facility] Food and Drug Administration. The performance characteristics have been verified by the [facility] Molecular Infectious Disease Laboratory. Axilla/Groin 12/23/2024 1:16 AM CDT 12/23/2024 5:22 AM CDT us Geoff Meneses MD LAB MICROBIOLOGY - GENERAL ORDER APTTIE Final Result Performing Organization Address City/[facility] Co de Phone Number [facility] [place] [address] [facility] * eGFR (12/23/2024 1:16 AM CDT) eGFR >90 >=60 mL/min/1. 73 m2 Comment: Interpretive Data Reference Interval Normal >/= 90 mL/min/1.73m2 Mildly decreased* 60 - 89 mL/min/1.73m2 Mildly to moderately decreased 45 - 59 mL/min/1.73m2 Moderately to severely decreased 30 - 44 mL/min/1.73m2 Severely decreased 15 - 29 mL/min/1.73m2 Kidney Failure < 15 mL/min/1.73m2 *Relative to young adult level Estimated glomerular filtration rate is determined by the 2020 CKD-EPI equation recommended by the National Kidney Foundation (A Unifying Approach to GFR Estimation: Recommendations of the NKF-ASK Task Force on Reassessing the Inclusion of Race in Diagnosing Kidney Disease, JASN 2020). The CKD-EPI equation should not be used for patients with unstable renal function and has not been validated in children and those over 70. Current interpretive data was last reviewed 2020. Blood 12/23/2024 1:16 AM CDT 12/23/2024 1:56 AM CDT us Ike Martinez MD LAB BLOOD ORDERABLES Fi nal Result [facility] Department [place] [address] * HIV 1/2 Antibody plus p24 Antigen Blood (12/23/2024 1:16 AM CDT) Pathologist [facility] HIV 1/2 ab + p24 ag Nonreactive Nonreactive Comment:Nonreactive for HIV- 1 antigen and HIV-1/HIV-2 antibodies. No laboratory evidence of HIV infection. If acute HIV infection is suspected, consider testing for HIV-1 RNA. Current interpretive data was last revised on 21. Blood 12/23/2024 1:16 AM CDT 12/23/2024 1:55 AM CDT us Ike Martinez MD LAB MICROBIOLOGY - GENE RAL ORDERABLES Final Result Performing Organization Address City/[facility]/ZIP Co de Phone Number [facility] Department [place] [address] * Niacin (vitamin B3) (12/23/2024 1:16 AM CDT) [facility] Niacin <5.0 Cutoff:<5 .0 ng/mL [facility] Lab Nicotinamide 18.2 5.0 - 48.0 ng/mL [facility] Nicotinuric acid <5.0 Cutoff:<5 .0 ng/mL [facility] Comment: ADDITIONAL INFORMATION Testing performed by Liquid Chromatography-Tandem Mass Spectrometry (LC-MS/MS) This test was developed and its performance characteristics determined by [facility] in a manner consistent with CLIA requirements. This test has not been cleared or approved by the U.S. Food and Drug Administration. Test Performed by: [facility] Laboratories - [place] [address] [place] [address] Supervisor Insecticide: Minor Thomas Ph.D.; CLIA# [id number] Blood 12/23/2024 1:16 AM CDT 12/23/2024 2:21 AM CDT us Ike Martinez MD LAB BLOOD ORDERABLES Fi nal Result Performing Organization Address City/[facility]/ZIP Co de Phone Number [facility] [place] [address] [place] [facility] * Vitamin A (12/23/2024 1:16 AM CDT) Pathologist [facility] Vitamin A 38.2 32.5 - 78.0 mcg/dL [facility] Comment: ADDITIONAL INFORMATION This test was developed and its performance characteristics determined by [facility] in a manner consistent with CLIA requirements. This test has not been cleared or approved by the U.S. Food and Drug Administration. Test Performed by: [facility] [place] [address] Supervisor Insecticide: Minor Thomas Ph.D.; CLIA# [id number] Blood 12/23/2024 1:16 AM CDT 12/23/2024 2:14 AM CDT Ike Martinez MD LAB BLOOD ORDERABLES [facility] Result [facility] [place] [address] [facility] * Vitamin K (12/23/2024 1:16 AM CDT) Pathologist [facility] Phylloquinone (Vit K) 0.45 0.10 - 2.20 ng/mL [facility] Comment: ADDITIONAL INFORMATION This test was developed and its performance characteristics determined by [facility] in a manner consistent with CLIA requirements. This test has not been cleared or approved by the U.S. Food and Drug Administration. Test Performed by: [facility] - [address] [address] Supervisor Insecticide: Minor Thomas Ph.D.; CLIA# [id number] Blood 12/23/2024 1:16 AM CDT 12/23/2024 2:14 AM CDT Ike Martinez MD LAB BLOOD ORDERABLES Fi nal Result Performing Organization Address [facility] Co de Phone Number [facility] [place] [place] [address] [facility] ref [facility] * (ABNORMAL) Vitamin D 25 hydroxy (12/23/2024 1:16 AM CDT) Vitamin D 25-OH 22(L) 30 - 80 ng/mL Blood 12/23/2024 1:16 AM CDT 12/23/2024 1:55 AM CDT Ike Martinez MD LAB BLOOD ORDERABLES Fi nal Result Performing Organization Address [facility] de Phone Number [facility] [place] [place] [address] * aPTT (12/23/2024 1:16 AM CDT) aPTT 30 26 - 38 sec Comment: Interpretive Data Heparin therapeutic range: 66.0 - 100.0 seconds. Range based on correlation with therapeutic heparin activity range of 0.3 - 0.7 Units/mL. Current interpretive data was last revised on 2022. Blood 12/23/2024 1:16 AM CDT 12/23/2024 2:03 AM CDT Noel López MD LAB BLOOD ORDERABLES Final Re sult Performing Organization Address [facility] Co de Phone Number [facility] [place] [address] * Protime-INR (12/23/2024 1:16 AM CDT) PT 12.8 10.2 - 13.5 sec INR 1.14 0.90 - 1.20 [facility] Comment: Interpretive data Oral anticoagulant therapeutic ranges: Venous thromboembolism prophylaxis or treatment: 2.0-3.0 CARDIOLOGY Standard range: 2.0-3.0 High-intensity range: 2.5-3.5 Refer to indication-specific guidelines for appropriate target ranges for prosthetic heart valve replacement. Current interpretive data was last revised on 2019. Blood 12/23/2024 1:16 AM CDT 12/23/2024 2:03 AM CDT us Noel López MD LAB BLOOD ORDERABLES Final Re sult Performing Organization Address City/State/[facility] Co de Phone Number [facility] [place] [address] * (ABNORMAL) CBC without differential (12/23/2024 1:16 AM CDT) WBC 8.02 3.80 - 9.90 K/cumm Hgb 13.1 13.0 - 17.5 g/dL [facility] Hct 36.0(L) 38.9 - 50.3 % [facility] Plt 225 150 - 400 K/cumm [facility] MPV 9.8 9.1 - 12.3 fL [facility] RBC 4.11(L) 4.30 - 5.80 M/cumm [facility] MCV 87.6 81.3 - 96.4 fL [facility] MCH 31.9 27.1 - 33.3 pg [facility] MCHC 36.4(H) 32.3 - 35.7 g/dL [facility] RDW CV 13.8 11.1 - 14.9 % [facility] RDW SD 44.0 35.7 - 48.1 fL [facility] NRBC abs 0.00 0.00 - 0.01 K/cumm [facility] Blood 12/23/2024 1:16 AM CDT 12/23/2024 1:55 AM CDT us Ike Martinez MD LAB BLOOD ORDERABLES Fi nal Result Performing Organization Address City/State/[facility] de Phone Number [facility] [place] [address] * Vitamin E (12/23/2024 1:16 AM CDT) Pathologist [facility] Tocopherol (Vit E) 5.9 5.5 - 17.0 mg/L [facility] Comment: ADDITIONAL INFORMATION This test was developed and its performance characteristics determined by [facility] in a manner consistent with CLIA requirements. This test has not been cleared or approved by the U.S. Food and Drug Administration. Test Performed by: [facility] [place] [address] Supervisor Insecticide: Minor Thomas Ph.D.; CLIA# [id number] Blood 12/23/2024 1:16 AM CDT 12/23/2024 2:14 AM CDT Ike Martinez MD LAB BLOOD ORDERABLES Fi nal Result Performing Organization Address [facility] de Phone Number [facility] [place] [address] [facility] * Vitamin B1 (12/23/2024 1:16 AM CDT) Pathologist [facility] Thiamine (Vit B1) 116 70 - 180 nmol/L [facility] Comment: ADDITIONAL INFORMATION This test was developed and its performance characteristics determined by [facility] in a manner consistent with CLIA requirements. This test has not been cleared or approved by the U.S. Food and Drug Administration. Test Performed by: [facility] [place] [address] Supervisor Insecticide: Minor Thomas Ph.D.; CLIA# [id number] Blood 12/23/2024 1:16 AM CDT 12/23/2024 1:55 AM CDT Ike Martinez MD LAB BLOOD ORDERABLES Fi nal Result Performing Organization Address [facility] Co de Phone Number [facility] [place] [address] [place] ref [facility] * Vitamin B6 (12/23/2024 1:16 AM CDT) Pyridoxal phosphate (Vit B6) 25 5 - 50 mcg/L [facility] Comment: ADDITIONAL INFORMATION This test was developed and its performance characteristics determined by [facility] in a manner consistent with CLIA requirements. This test has not been cleared or approved by the U.S. Food and Drug Administration. Test Performed by: [address] [address] Supervisor Insecticide: Minor Thomas Ph.D.; CLIA# [id number] Blood 12/23/2024 1:16 AM CDT 12/23/2024 2:21 AM CDT us Ike Martinez MD LAB BLOOD ORDERABLES Fi nal Result Performing Organization Address [facility] de Phone Number [facility] Department [place] [address] [place] [facility] * Magnesium (12/23/2024 1:16 AM CDT) Magnesium 1.6 1.4 - 2.5 mg/dL Blood 12/23/2024 1:16 AM CDT 12/23/2024 1:51 AM CDT us Noel López MD LAB BLOOD ORDERABLES Final Re sult Performing Organization Address [facility] Co de Phone Number [facility] [place] [address] * Folate (12/23/2024 1:16 AM CDT) [facility] Folic acid >20.0 >=5.0 ng/mL Blood 12/23/2024 1:16 AM CDT 12/23/2024 1:55 AM CDT Ike Martinez MD LAB BLOOD ORDERABLES Fi nal Result Performing Organization Address City/[facility] Co de Phone Number [facility] [place] [address] * Vitamin B12 (12/23/2024 1:16 AM CDT) [facility] Vitamin B12 670 230 - 1,250 pg/mL Blood 12/23/2024 1:16 AM CDT 12/23/2024 1:55 AM CDT Ike Martinez MD LAB BLOOD ORDERABLES Fi nal Result Performing Organization Address [facility] de Phone Number [facility] Department [place] [address] * (ABNORMAL) Comprehensive metabolic panel (12/23/2024 1:16 AM CDT) [facility] Sodium 139 135 - 145 mmol/L Potassium, pl 3.9 3.3 - 4.9 mmol/L [facility] Chloride 105 97 - 110 mmol/L [facility] CO2 29 22 - 32 mmol/L [facility] Anion gap 5 2 - 15 mmol/L [facility] BUN 17 6 - 25 mg/dL [facility] Creatinine 0.88 0.80 - 1.30 mg/dL [facility] Glucose 154 70 - 199 mg/dL [facility] Comment: Interpretive Data Fasting glucose >/= 126 mg/dl is diagnostic for diabetes. Fasting is defined as no caloric intake for at least 8 hours. Fasting glucose between 100 mg/dl to 125 mg/dl is diagnostic of prediabetes. In a patient with classic symptoms of hyperglycemia or hyperglycemic crisis, a random glucose >/= 200 mg/dl is diagnostic for diabetes. In the absence of unequivocal hyperglycemia, results should be confirmed by repeat testing. The classification and Diagnosis of Diabetes Diabetes Care 2021; 46: S19-S40. Current interpretive data was last revised 2022. Calcium 9.0 8.5 - 10.3 mg/dL [facility] Bilirubin, total 0.3 0.1 - 1.2 mg/dL [facility] Protein, pl 5.8(L) 6.5 - 8.5 g/dL [facility] Albumin 3.5 3.5 - 5.0 g/dL [facility] Alk phos 50 40 - 130 Units/L [facility] ALT 183(H) 7 - 55 Units/L [facility] AST 108(H) 10 - 50 Units/L [facility] Blood 12/23/2024 1:16 AM CDT 12/23/2024 1:51 AM CDT Noel López MD LAB BLOOD ORDERABLES Final Re sult [facility] [place] [address] * (ABNORMAL) POCT glucose (12/22/2024 8:07 PM CDT) [facility] Glucose, POC 244(H) 70 - 199 mg/dL Blood 12/22/2024 8:07 PM CDT 12/22/2024 8:07 PM CDT us Noel López MD LAB POCT ORDERABLES - DEVICE Final Result [facility] [place] [address] * US Carotids Duplex Bilateral (12/22/2024 7:21 PM CDT) Anatomical Region Laterality Modality Vascular Bilateral Ultrasound 12/22/2024 6:30 PM CDT Narrative 12/23/2024 1:03 PM CDT [facility] - Department of Vascular Surgery, Vascular Laboratory [address] [place] [id number] Carotid Duplex Ultrasound Report Patient Name: SAMANTHA MORENO R : 1960 (64y 7m) Study Date: 12/22/2024 6:30:57 PM Sex: M Tech: Brissa PIERCE Location: [id number] Ref Provider: IKE MARTINEZ Quality: Adequate Order Provider: IKE MARTINEZ PROCEDURES: Carotid Report: Carotid duplex examination of the extracranial arteries was performed using 2D, color and spectral Doppler. INDICATIONS: Syncope. MEASUREMENTS: Right Value Units Left Value Units RT Prox CCA PSV 107 cm/sec LT Prox CCA PSV 123 cm/sec RT Prox CCA EDV 18 cm/sec LT Prox CCA EDV 26 cm/sec RT Distal CCA PSV 88 cm/sec LT Distal CCA PSV 88 cm/sec RT Distal CCA EDV 20 cm/sec LT Distal CCA EDV 21 cm/sec RT Prox ICA PSV 96 cm/sec LT Prox ICA PSV 82 cm/sec RT Prox ICA EDV 22 cm/sec LT Prox ICA EDV 27 cm/sec RT Mid ICA PSV 70 cm/sec LT Mid ICA PSV 79 cm/sec RT Mid ICA EDV 21 cm/sec LT Mid ICA EDV 22 cm/sec RT Distal ICA PSV 85 cm/sec LT Distal ICA PSV 99 cm/sec RT Distal ICA EDV 31 cm/sec LT Distal ICA EDV 41 cm/sec RT ECA Prx PSV 98 cm/sec LT ECA Prx PSV 87 cm/sec RT ICA/CCA 1.09 ratio LT ICA/CCA 1.13 ratio RT VERT PSV 42 cm/sec LT VERT PSV 48 cm/sec FINDINGS: Performing Bit Sander: Luda Pierce RVT. Rt Common Carotid Artery: The plaque in the right CCA appears to be heterogeneous and irregular. Atherosclerotic changes of the right common carotid artery with no hemodynamically significant Doppler findings. Rt Internal Carotid Artery: The plaque in the right internal carotid artery appears to be heterogeneous and irregular. Atherosclerotic changes of the right internal carotid artery without hemodynamically significant Doppler findings. <50% stenosis. Rt External Carotid Artery: Patent right external carotid artery with evidence of atherosclerotic disease present. Rt Vertebral Artery: The right vertebral artery is patent with antegrade flow. Lt Common Carotid Artery: There is intimal thickening but no significant atherosclerotic plaque noted in the left common carotid artery. Lt Internal Carotid Artery: The plaque in the left internal carotid artery appears to be heterogeneous and irregular. Atherosclerotic changes of the left internal carotid artery without hemodynamically significant Doppler findings. <50% stenosis. Lt External Carotid Artery: Patent left external carotid artery with evidence of atherosclerotic disease present. Lt Vertebral Artery: The left vertebral artery is patent with antegrade flow. CONCLUSIONS: 1. The right internal carotid artery disease is consistent with a less than 50% stenosis. 2. The left internal carotid artery disease is consistent with a less than 50% stenosis. 3. No evidence of hemodynamically significant stenosis in the common carotid artery bilaterally. 4. Normal, antegrade flow is noted in bilateral vertebral arteries. HISTORY: HTN, DM, CVA, Neuropathy in diabetes. PREVIOUS STUDIES: No previous studies for comparison. DISCLAIMER: The study images and the final report will be retained in the patient chart by the Vascular Laboratory for the legally required time period. This chart constitutes the legal record of any testing performed. ATTESTATION: I have reviewed and interpreted the pertinent images and measurements of this study. I attest to the conclusions in the final report that is provided above. Electronically Signed By: Olvin Cotton MD FACS 12/23/2024 12:36:01 PM CDT Procedure Note Olvin Cotton MD - 12/23/2024 [facility] - Department of Vascular Surgery,Vascular Laboratory [address] [place] [id number] Carotid Duplex Ultrasound Report Patient Name: SAMANTHA MORENO R : 1960 (64y 7m) Study Date: 12/22/2024 6:30:57 PM Sex: M Tech: Brissa PIERCE Location: [id number] Ref Provider: IKE MARTINEZ Quality: Adequate Order Provider: IKE MARTINEZ PROCEDURES: Carotid Report: Carotid duplex examination of the extracranial arterieswas performed using 2D, color and spectral Doppler. INDICATIONS: Syncope. MEASUREMENTS: Right Value Units Left Value Units RT Prox CCA PSV 107 cm/sec LT Prox CCA PSV 123 cm/sec RT Prox CCA EDV 18 cm/sec LT Prox CCA EDV 26 cm/sec RT Distal CCA PSV 88 cm/sec LT Distal CCA PSV 88 cm/sec RT Distal CCA EDV 20 cm/sec LT Distal CCA EDV 21 cm/sec RT Prox ICA PSV 96 cm/sec LT Prox ICA PSV 82 cm/sec RT Prox ICA EDV 22 cm/sec LT Prox ICA EDV 27 cm/sec RT Mid ICA PSV 70 cm/sec LT Mid ICA PSV 79 cm/sec RT Mid ICA EDV 21 cm/sec LT Mid ICA EDV 22 cm/sec RT Distal ICA PSV 85 cm/sec LT Distal ICA PSV 99 cm/sec RT Distal ICA EDV 31 cm/sec LT Distal ICA EDV 41 cm/sec RT ECA Prx PSV 98 cm/sec LT ECA Prx PSV 87 cm/sec RT ICA/CCA 1.09 ratio LT ICA/CCA 1.13 ratio RT VERT PSV 42 cm/sec LT VERT PSV 48 cm/sec FINDINGS: Performing Bit Sander: Luda Pierce RVT. Rt Common Carotid Artery: The plaque in the right CCA appears to beheterogeneous and irregular. Atherosclerotic changes of the right common carotid artery withno hemodynamically significant Doppler findings. Rt Internal Carotid Artery: The plaque in the right internal carotidartery appears to be heterogeneous and irregular. Atherosclerotic changes of the right internalcarotid artery without hemodynamically significant Doppler findings. <50% stenosis. Rt External Carotid Artery: Patent right external carotid artery withevidence of atherosclerotic disease present. Rt Vertebral Artery: The right vertebral artery is patent with antegradeflow. Lt Common Carotid Artery: There is intimal thickening but no significantatherosclerotic plaque noted in the left common carotid artery. Lt Internal Carotid Artery: The plaque in the left internal carotid arteryappears to be heterogeneous and irregular. Atherosclerotic changes of the left internalcarotid artery without hemodynamically significant Doppler findings. <50% stenosis. Lt External Carotid Artery: Patent left external carotid artery withevidence of atherosclerotic disease present. Lt Vertebral Artery: The left vertebral artery is patent with antegradeflow. CONCLUSIONS: 1. The right internal carotid artery disease is consistent with a lessthan 50% stenosis. 2. The left internal carotid artery disease is consistent with a less than50% stenosis. 3. No evidence of hemodynamically significant stenosis in the commoncarotid artery bilaterally. 4. Normal, antegrade flow is noted in bilateral vertebral arteries. HISTORY: HTN, DM, CVA, Neuropathy in diabetes. PREVIOUS STUDIES: No previous studies for comparison. DISCLAIMER: The study images and the final report will be retained in the patientchart by the Vascular Laboratory for the legally required time period. This chartconstitutes the legal record of any testing performed. ATTESTATION: I have reviewed and interpreted the pertinent images and measurements ofthis study. I attest to the conclusions in the final report that is provided above. Electronically Signed By: Olvin Cotton MD FACS 12/23/2024 12:36:01 PM CDT us Ike Martinez MD IMG US PROCEDURES Final Result * eGFR (12/22/2024 6:12 PM CDT) eGFR >90 >=60 mL/min/1. 73 m2 Comment: Interpretive Data Reference Interval Normal >/= 90 mL/min/1.73m2 Mildly decreased* 60 - 89 mL/min/1.73m2 Mildly to moderately decreased 45 - 59 mL/min/1.73m2 Moderately to severely decreased 30 - 44 mL/min/1.73m2 Severely decreased 15 - 29 mL/min/1.73m2 Kidney Failure < 15 mL/min/1.73m2 *Relative to young adult level Estimated glomerular filtration rate is determined by the 2020 CKD-EPI equation recommended by the National Kidney Foundation (A Unifying Approach to GFR Estimation: Recommendations of the NKF-ASK Task Force on Reassessing the Inclusion of Race in Diagnosing Kidney Disease, JASN 202). The CKD-EPI equation should not be used for patients with unstable renal function and has not been validated in children and those over 70. Current interpretive data was last reviewed 2020. Blood 12/22/2024 6:12 PM CDT 12/22/2024 6:29 PM CDT us Ike Martinez MD LAB BLOOD ORDERABLES Fi nal Result [facility] Department [place] [address] * (ABNORMAL) POCT glucose (12/22/2024 6:12 PM CDT) [facility] Glucose, POC 224(H) 70 - 199 mg/dL Blood 12/22/2024 6:12 PM CDT 12/22/2024 6:12 PM CDT Ike Martinez MD LAB POCT ORDERABLES - D EVICE Final Result Performing Organization Address City/[facility]/ZIP Co de Phone Number [facility] [place] [address] * CBC without differential (12/22/2024 6:12 PM CDT) [facility] WBC 8.98 3.80 - 9.90 K/cumm Hgb 13.6 13.0 - 17.5 g/dL [facility] Hct 39.8 38.9 - 50.3 % [facility] Plt 233 150 - 400 K/cumm [facility] MPV 9.9 9.1 - 12.3 fL [facility] RBC 4.47 4.30 - 5.80 M/cumm [facility] MCV 89.0 81.3 - 96.4 fL [facility] MCH 30.4 27.1 - 33.3 pg [facility] MCHC 34.2 32.3 - 35.7 g/dL [facility] RDW CV 13.5 11.1 - 14.9 % [facility] RDW SD 43.9 35.7 - 48.1 fL [facility] NRBC abs 0.00 0.00 - 0.01 K/cumm [facility] Blood 12/22/2024 6:12 PM CDT 12/22/2024 6:29 PM CDT us Ike Martinez MD LAB BLOOD ORDERABLES Fi nal Result Performing Organization Address City/[facility]/ZIP Co de Phone Number [facility] Department [place] [address] * Magnesium (12/22/2024 6:12 PM CDT) Magnesium 1.6 1.4 - 2.5 mg/dL Blood 12/22/2024 6:12 PM CDT 12/22/2024 6:29 PM CDT us Ike Martinez MD LAB BLOOD ORDERABLES Fi nal Result [facility] Department [place] [address] * Lipid panel (12/22/2024 6:12 PM CDT) Cholesterol 103 30 - 199 mg/dL Comment: Interpretive Data Ages < or = 19 years Acceptable: <170 mg/dL Borderline high: 170-199 mg/dL High: >or= 200 mg/dL Ages > or = 20 years Desirable: <200 mg/dL Borderline high: 200-239 mg/dL High: >or= 240 mg/dL Literature References: 1. Expert Panel on Integrated Guidelines for Cardiovascular Health and Risk Reduction in Children and Adolescents. Pediatrics 2011;128:S213 2. NCEP Expert Panel. Circulation 2004;110:227 Current Interpretive Data was last revised on 2017. Triglycerides 81 <=149 mg/dL [facility] Comment: Interpretive Data Ages < or = 9 years Acceptable: <75 mg/dL Borderline high: 75-99 mg/dL High: >or= 100 mg/dL Ages 10 to 20 years Acceptable: <90 mg/dL Borderline high: 90-129 mg/dL High: >or= 130 mg/dL Ages > or = 20 years Desirable: <150 mg/dL Borderline high: 150-199 mg/dL High: 200-499 mg/dL Very high: >or= 499 mg/dL Literature References: 1. Expert Panel on Integrated Guidelines for Cardiovascular Health and Risk Reduction in Children and Adolescents. Pediatrics 2011;128:S213 2. NCEP Expert Panel. Circulation 2004;110:227 Current Interpretive Data was last revised on 2017. HDL 43 >=40 mg/dL [facility] Comment: Interpretive Data Ages < or = 19 years Acceptable: >45 mg/dL Borderline low: 40-45 mg/dL Low: <40 mg/dL Ages > or = 20 years Desirable: >or= 60 mg/dL Low: <40 mg/dL Literature References: 1. Expert Panel on Integrated Guidelines for Cardiovascular Health and Risk Reduction in Children and Adolescents. Pediatrics 2011;128:S213 2. NCEP Expert Panel. Circulation 2004;110:227 Current Interpretive Data was last revised on 2017. LDL, calculated 44 <=129 mg/dL [facility] Comment: Interpretive Data Ages < or = 19 years Acceptable: <110 mg/dL Borderline high: 110-129 mg/dL High: >or= 130 mg/dL Ages > or = 20 years Optimal: <100 mg/dL Near optimal: 100-129 mg/dL Borderline high: 130-159 mg/dL High: >160 mg/dL Calculated using the Lázaro LDL-C estimating equation. This equation was implemented on 2023. Prior to this date LDL-C was estimated using the Friedewald equation. Literature References: 1. Expert Panel on Integrated Guidelines for Cardiovascular Health and Risk Reduction in Children and Adolescents. Pediatrics 2011;128:S213 2. NCEP Expert Panel. Circulation 2004;110:227 3. Lázaro Brumfield et al. NATALEE Cardiol. 2020 June 28;5(5):540-548. doi: 10.1001/jamacardio.2020.0013 Current Interpretive Data was last revised on 2023. Non-HDL Cholesterol 60 mg/dL [facility] Comment: Interpretive Data Ages < or = 19 years Acceptable: <120 mg/dL Borderline high: 120-144 mg/dL High: >145 mg/dL Ages > or = 20 years When triglycerides are >200 mg/dL, Non-HDL cholesterol is a secondary target of therapy with treatment goals that are 30 mg/dL greater than the LDL cholesterol target. Literature References: 1. Expert Panel on Integrated Guidelines for Cardiovascular Health and Risk Reduction in Children and Adolescents. Pediatrics 2011;128:S213 2. NCEP Expert Panel. Circulation 2004;110:227 Current Interpretive Data was last revised on 2017. Chol/HDL ratio 2 [facility] Blood 12/22/2024 6:12 PM CDT 12/22/2024 6:29 PM CDT us Noel López MD LAB BLOOD ORDERABLES Final Re sult [facility] Department [place] [address] * (ABNORMAL) Comprehensive metabolic panel (12/22/2024 6:12 PM CDT) Sodium 138 135 - 145 mmol/L Potassium, pl 4.0 3.3 - 4.9 mmol/L [facility] Chloride 103 97 - 110 mmol/L [facility] CO2 28 22 - 32 mmol/L [facility] Anion gap 7 2 - 15 mmol/L [facility] BUN 14 6 - 25 mg/dL [facility] Creatinine 0.88 0.80 - 1.30 mg/dL [facility] Glucose 251(H) 70 - 199 mg/dL [facility] Comment: Interpretive Data Fasting glucose >/= 126 mg/dl is diagnostic for diabetes. Fasting is defined as no caloric intake for at least 8 hours. Fasting glucose between 100 mg/dl to 125 mg/dl is diagnostic of prediabetes. In a patient with classic symptoms of hyperglycemia or hyperglycemic crisis, a random glucose >/= 200 mg/dl is diagnostic for diabetes. In the absence of unequivocal hyperglycemia, results should be confirmed by repeat testing. The classification and Diagnosis of Diabetes Diabetes Care 2021; 46: S19-S40. Current interpretive data was last revised 2022. Calcium 9.4 8.5 - 10.3 mg/dL [facility] Bilirubin, total 0.4 0.1 - 1.2 mg/dL [facility] Protein, pl 6.3(L) 6.5 - 8.5 g/dL [facility] Albumin 3.6 3.5 - 5.0 g/dL [facility] Alk phos 56 40 - 130 Units/L [facility] ALT 201(H) 7 - 55 Units/L [facility] AST 119(H) 10 - 50 Units/L [facility] Blood 12/22/2024 6:12 PM CDT 12/22/2024 6:29 PM CDT us Ike Martinez MD LAB BLOOD ORDERABLES Fi nal Result [facility] [place] [address] * EEG (12/22/2024 4:41 PM CDT) Anatomical Region Laterality Modality EEG Narrative 12/23/2024 10:41 AM CDT Routine EEG Report Patient Name: Samantha Moreno [facility] Medical Record Number (MRN): [id number] [facility] Record: [id number] Date of (): 1960 EEG Date: 12/22/2024 Ordering Provider: Ike Martinez MD CC: Fabiana Whitney Start Time: 12/22/2024 3:09:38 PM End Time: 12/22/2024 4:12:27 PM Introduction: Mr. Moreno is a 64 y.o. male with a history of uncontrolled T2DM, prior and subacute subcortical, brainstem and cerebellar strokes, and JANA, who presented to an OSH for N/V and had an episode of LOC concerning for syncope vs. seizure. EEG was performed to evaluate for seizures. This is a 32 channel EEG recording acquired on a [employer] EEG-1200 acquisition system. Scalp electrodes were placed according to the international 10-20 System. The analog EEG was filtered from 1-70 Hz and digitally sampled at 200 Hz. The record was then reformatted for review in bipolar and referential montages. EEG Description: The awake background included a 9 Hz posterior rhythm which attenuated with eye opening and activity. During drowsiness, identified by ocular signs and alpha attenuation, there was intermittent, diffuse, asynchronous theta activity admixed with 2-4 Hz polymorphic frontotemporal delta activity. As the record progressed, stage II sleep was identified by vertex waves, sleep spindles and K-complexes. Photic strobe stimulation elicited no abnormalities. There were no focal, lateralized or epileptiform abnormalities. Immediately after hyperventilation was performed the patient had an event that clinically consisted of cough, followed by reported lightheadedness/dizziness, with retained awareness, which per the patient was typical of his prior events. His heart rate slowed down and then had an 8-second pause, followed by a 4-second pause during the reported symptoms. Electrographically there was diffuse slowing during the period of asystole, with return to a normal wakeful background shortly after return to a regular tachycardic heart rate. Interpretation: This is an abnormal EEG due to an event of syncope with associated diffuse slowing that occurred during the recording. The noted clinical event, which consisted of asystole, with lightheadedness, preceded by cough, and occurred immediately after hyperventilation, had electrographic features consistent with syncope. The EEG background was otherwise normal during wakefulness, drowsiness and sleep. These findings were discussed with the treating physicians. By signing this report, the attending Electroencephalographer certifies that he/she personally reviewed the electrodiagnostics study and has edited this report to fully conform with his/her intent. Signing Attending: Kota Choi MD PhD us Ike Martinez MD NEUROLOGY ORDERABLES Fi nal Result * POCT glucose (12/22/2024 11:45 AM CDT) Glucose, POC 185 70 - 199 mg/dL Blood 12/22/2024 11:4 5 AM CDT 12/22/2024 11:45 AM CDT Norm Gan MD PhD LAB POCT ORDERABLES - D EVICE Final Result [facility] Department [place] [address] * eGFR (12/22/2024 4:14 AM CDT) eGFR >90 >=60 mL/min/1. 73 m2 Comment: Interpretive Data Reference Interval Normal >/= 90 mL/min/1.73m2 Mildly decreased* 60 - 89 mL/min/1.73m2 Mildly to moderately decreased 45 - 59 mL/min/1.73m2 Moderately to severely decreased 30 - 44 mL/min/1.73m2 Severely decreased 15 - 29 mL/min/1.73m2 Kidney Failure < 15 mL/min/1.73m2 *Relative to young adult level Estimated glomerular filtration rate is determined by the 2020 CKD-EPI equation recommended by the National Kidney Foundation (A Unifying Approach to GFR Estimation: Recommendations of the NKF-ASK Task Force on Reassessing the Inclusion of Race in Diagnosing Kidney Disease, JASN 2020). The CKD-EPI equation should not be used for patients with unstable renal function and has not been validated in children and those over 70. Current interpretive data was last reviewed 2020. Blood 12/22/2024 4:14 AM CDT 12/22/2024 4:31 AM CDT Noel Polo MD LAB BLOOD ORDERABLES Final Result [place] [id number] [facility] Department [place] [address] * Differential, auto (12/22/2024 4:14 AM CDT) Neutrophil abs 5.19 1.50 - 6.50 K/cumm Imm gran abs 0.02 0.00 - 0.10 K/cumm [facility] Lymphocyte abs 2.62 0.80 - 3.30 K/cumm [facility] Monocyte abs 0.56 0.20 - 0.80 K/cumm [facility] Eosinophil abs 0.15 0.00 - 0.50 K/cumm [facility] Basophil abs 0.03 0.00 - 0.10 K/cumm [facility] Neutrophil pct 60.5 % [facility] Comment: Interpretive Data Percent cell count reference ranges are not reported, since discordance with absolute values may lead to misinterpretation of CBC data. Current Interpretive Data was last revised on 2017. Imm gran pct 0.2 % [facility] Comment: Interpretive Data Percent cell count reference ranges are not reported, since discordance with absolute values may lead to misinterpretation of CBC data. Current Interpretive Data was last revised on 2017. Lymphocyte pct 30.6 % [facility] Comment: Interpretive Data Percent cell count reference ranges are not reported, since discordance with absolute values may lead to misinterpretation of CBC data. Current Interpretive Data was last revised on 2017. Monocyte pct 6.5 % [facility] Comment: Interpretive Data Percent cell count reference ranges are not reported, since discordance with absolute values may lead to misinterpretation of CBC data. Current Interpretive Data was last revised on 2017. Eosinophil pct 1.8 % [facility] Comment: Interpretive Data Percent cell count reference ranges are not reported, since discordance with absolute values may lead to misinterpretation of CBC data. Current Interpretive Data was last revised on 2017. Basophil pct 0.4 % [facility] Comment: Interpretive Data Percent cell count reference ranges are not reported, since discordance with absolute values may lead to misinterpretation of CBC data. Current Interpretive Data was last revised on 2017. Blood 12/22/2024 4:14 AM CDT 12/22/2024 4:31 AM CDT Ed Null MD LAB BLOOD ORDERABLES Final Resul t [facility] [address] [facility] Department [place] [address] * CBC with auto differential (12/22/2024 4:14 AM CDT) WBC 8.57 3.80 - 9.90 K/cumm Hgb 14.6 13.0 - 17.5 g/dL [facility] Hct 41.9 38.9 - 50.3 % [facility] Plt 220 150 - 400 K/cumm [facility] MPV 9.8 9.1 - 12.3 fL [facility] RBC 4.64 4.30 - 5.80 M/cumm [facility] MCV 90.3 81.3 - 96.4 fL [facility] MCH 31.5 27.1 - 33.3 pg [facility] MCHC 34.8 32.3 - 35.7 g/dL [facility] RDW CV 13.2 11.1 - 14.9 % [facility] RDW SD 43.2 35.7 - 48.1 fL [facility] NRBC abs 0.00 0.00 - 0.01 K/cumm [facility] Blood 12/22/2024 4:14 AM CDT 12/22/2024 4:31 AM CDT Ed Null MD LAB BLOOD ORDERABLES Final Resul t [place] [address] [facility] Department [place] [address] * (ABNORMAL) Comprehensive metabolic panel (12/22/2024 4:14 AM CDT) Pathologist [facility] Sodium 137 135 - 145 mmol/L Potassium, pl 4.0 3.3 - 4.9 mmol/L [facility] Chloride 101 97 - 110 mmol/L [facility] CO2 28 22 - 32 mmol/L [facility] Anion gap 8 2 - 15 mmol/L [facility] BUN 12 6 - 25 mg/dL [facility] Creatinine 0.80 0.80 - 1.30 mg/dL [facility] Glucose 234(H) 70 - 199 mg/dL [facility] Comment: Interpretive Data Fasting glucose >/= 126 mg/dl is diagnostic for diabetes. Fasting is defined as no caloric intake for at least 8 hours. Fasting glucose between 100 mg/dl to 125 mg/dl is diagnostic of prediabetes. In a patient with classic symptoms of hyperglycemia or hyperglycemic crisis, a random glucose >/= 200 mg/dl is diagnostic for diabetes. In the absence of unequivocal hyperglycemia, results should be confirmed by repeat testing. The classification and Diagnosis of Diabetes Diabetes Care 2021; 46: S19-S40. Current interpretive data was last revised 2022. Calcium 9.1 8.5 - 10.3 mg/dL [facility] Bilirubin, total 0.4 0.1 - 1.2 mg/dL [facility] Protein, pl 5.8(L) 6.5 - 8.5 g/dL [facility] Albumin 3.8 3.5 - 5.0 g/dL [facility] Alk phos 57 40 - 130 Units/L [facility] ALT 183(H) 7 - 55 Units/L [facility] AST 132(H) 10 - 50 Units/L [facility] Blood 12/22/2024 4:14 AM CDT 12/22/2024 4:31 AM CDT us Noel Polo MD LAB BLOOD ORDERABLES Final Result Performing Organization Address [facility] Co de Phone Number [place] [address] [place] [address] * (ABNORMAL) POCT glucose (12/21/2024 7:46 PM CDT) Pathologist [facility] Glucose, POC 230(H) 70 - 199 mg/dL Blood 12/21/2024 7:46 PM CDT 12/21/2024 7:46 PM CDT us Noel Polo MD LAB POCT ORDERABLES - DEVICE Final Result Performing Organization Address [facility] Phone Number [place] [address] [address] * ECG 12 lead (12/21/2024 4:44 PM CDT) [facility] Ventricular Rate EKG/Min 74 BPM [facility] Atrial Rate 74 BPM [facility] CA-Interval (MSEC) 182 ms [facility] QRS-Interval (MSEC) 76 ms [facility] QT-Interval (MSEC) 392 ms [facility] QTc 435 ms [facility] P [place] 39 degrees [facility] R [place] -28 degrees [facility] T [place] 29 degrees [facility] Diagnosis Normal sinus rhythm Nonspecific T wave abnormality When compared with ECG of 16-DEC-2024 17:36, CA interval has decreased Incomplete right bundle branch block is no longer Present Confirmed by SULTAN SHAH M.D. ([id number]) on 12/21/2024 8:35:59 PM [facility] 12/21/2024 4:44 PM CDT 12/21/2024 8:35 PM CDT us Noel Polo MD ECG ORDERABLES [place] l Result Performing Organization Address [facility]/ZIP Co de Phone Number [facility] * (ABNORMAL) POCT glucose (12/21/2024 4:17 PM CDT) Glucose, POC 367(H) 70 - 199 mg/dL Glucose comment 1 RN/MD Notified [facility] Blood 12/21/2024 4:17 PM CDT 12/21/2024 4:17 PM CDT Noel Polo MD LAB POCT ORDERABLES - DEVICE Final Result Performing Organization Address [facility] de Phone Number [place] [address] [facility] Department [place] [address] * Hepatitis panel, acute Blood (12/21/2024 3:02 PM CDT) [facility] Hep A IgM Nonreactive Nonreactive Comment: Interpretive Data: If Hep A IgM Ab is reported as Equivocal, a new sample should be drawn in two weeks for testing. Current interpretive data was last revised on 19. Hep B core IgM Nonreactive Nonreactive [facility] Comment: Interpretive Data If HepB Core IgM Ab is reported as Equivocal, a new sample should be drawn in two weeks for testing. Current interpretive data was last revised on 19. Hep C Ab Nonreactive Nonreactive [facility] Comment: Antibodies to HCV not detected. Does NOT exclude the possibility of recent exposure to HCV. Current interpretive data was last revised on 21 Interpretive Data Nonreactive: Antibodies to HCV not detected. Does NOT exclude the possibility of recent exposure to HCV. Equivocal: Equivocal for HCV antibodies. Supplemental molecular testing will be automatically performed to determine infection status in accordance with current CDC screening recommendations. Reactive: Positive for HCV antibodies. This may represent current or past HCV infection. Supplemental molecular testing will be automatically performed to determine current infection status in accordance with current CDC screening recommendations. Interpretive data was last revised on 2019. HepBsAg Nonreactive Nonreactive [facility] Blood 12/21/2024 3:02 PM CDT 12/21/2024 3:27 PM CDT Noel Polo MD LAB MICROBIOLOGY - G ENERAL ORDERABLES Final Result Performing Organization Address [facility] de Phone Number [place] [address] [facility] [place] [address] * (ABNORMAL) POCT glucose (12/21/2024 12:23 PM CDT) Glucose, POC 248(H) 70 - 199 mg/dL Glucose comment 1 RN/MD Notified [place] Blood 12/21/2024 12:2 3 PM CDT 12/21/2024 12:23 PM CDT us Noel Polo MD LAB POCT ORDERABLES - DEVICE Final Result Performing Organization Address [facility] Phone Number [place] [address] [place] [address] * EEG (12/21/2024 11:41 AM CDT) Anatomical Region Laterality Modality Other Narrative 12/21/2024 3:08 PM CDT Nura Lebron MD 12/31/2024 11:28 AM Reason for exam: Persistent syncopal episodes Technical: This is a digitally recorded electroencephalogram. This was an extended study. It was just over 3 hours long. The international 10-20 electrode placement system is used for scalp electrode placement. Eighteen channels of scalp EEG are recorded. One channel was used for EOG. Another channel was used for ECG. The data are stored digitally and reviewed in reformatted montages for optimal display. Background: 9 hertz alpha background activity was seen. Maximal over the posterior head region. These activities are symmetric on both sides. They attenuated with eye opening. Portions of the study were limited due to patient motion artifact, eating lunch etc.. Description: No focal slowing was seen. No seizure like activity was observed during this recording. Patient was seen in the awake alert, and briefly in a drowsy state. He did not have any of his recently described syncope episodes during this study. Impression: Normal EEG. No focal slowing, no seizure like activity was observed. Correlation with clinical findings is needed. us Nura Lebron MD NEUROLOGY ORDERABLES Final Result * POCT glucose (12/21/2024 9:18 AM CDT) Glucose, POC 188 70 - 199 mg/dL Blood 12/21/2024 9:18 AM CDT 12/21/2024 9:18 AM CDT us Noel Polo MD LAB POCT ORDERABLES - DEVICE Final Result [place] [address] [facility] Department [place] [address] * US RUQ (12/21/2024 9:00 AM CDT) Anatomical Region Laterality Modality Abdomen N/A Ultrasound 12/21/2024 11:5 9 AM CDT Impressions 12/21/2024 11:59 AM CDT No acute findings. Common bile duct is largely obscured by shadowing from overlying bowel gas. Electronically signed by: Grady Partida M.D. Narrative 12/21/2024 11:59 AM CDT EXAMINATION: LIMITED ABDOMINAL SONOGRAM HISTORY: Nausea and dry heaving for 16 days. Elevated liver function tests today. COMPARISON: Abdomen and pelvis CT from 12/16/2024. FINDINGS: Liver: The liver is normal in size. The echotexture is normal. The echogenicity is normal. There is no surface nodularity. No focal solid lesions are visualized. Main portal vein flow is hepatopedal Gallbladder: The gallbladder is normal in size. There are no stones or sludge within the gallbladder. There is no gallbladder wall thickening. Bile Duct: There is no intrahepatic bile duct dilatation. Common duct is largely obscured by shadowing from overlying bowel gas. The visualized portions, measures up to 2 mm. Right Kidney: There is no hydronephrosis in the visualized portions of the right kidney. The right kidney measures 11 cm in length. Pancreas: The visualized portions of the pancreas are normal. Procedure Note Grady Partida MD - 12/21/2024 EXAMINATION: LIMITED ABDOMINAL SONOGRAM HISTORY: Nausea and dry heaving for 16 days. Elevated liver function tests today. COMPARISON: Abdomen and pelvis CT from 12/16/2024. FINDINGS: Liver: The liver is normal in size. The echotexture is normal. The echogenicity is normal. There is no surface nodularity. No focal solid lesions are visualized. Main portal vein flow is hepatopedal Gallbladder: The gallbladder is normal in size. There are no stones or sludge within the gallbladder. There is no gallbladder wall thickening. Bile Duct: There is no intrahepatic bile duct dilatation. Common duct is largely obscured by shadowing from overlying bowel gas. The visualized portions, measures up to 2 mm. Right Kidney: There is no hydronephrosis in the visualized portions of the right kidney. The right kidney measures 11 cm in length. Pancreas: The visualized portions of the pancreas are normal. IMPRESSION: No acute findings. Common bile duct is largely obscured by shadowing from overlying bowel gas. Electronically signed by: Grady Partida M.D. us Noel Polo MD IMG US PROCEDURES Fi nal Result * (ABNORMAL) POCT glucose (12/21/2024 7:53 AM CDT) Pathologist [facility] Glucose, POC 216(H) 70 - 199 mg/dL Glucose comment 1 RN/MD Notified [place] Blood 12/21/2024 7:53 AM CDT 12/21/2024 7:53 AM CDT Noel Polo MD LAB POCT ORDERABLES - DEVICE Final Result [place] [address] [facility] Department [place] [address] * eGFR (12/21/2024 5:28 AM CDT) [facility] eGFR >90 >=60 mL/min/1. 73 m2 Comment: Interpretive Data Reference Interval Normal >/= 90 mL/min/1.73m2 Mildly decreased* 60 - 89 mL/min/1.73m2 Mildly to moderately decreased 45 - 59 mL/min/1.73m2 Moderately to severely decreased 30 - 44 mL/min/1.73m2 Severely decreased 15 - 29 mL/min/1.73m2 Kidney Failure < 15 mL/min/1.73m2 *Relative to young adult level Estimated glomerular filtration rate is determined by the 2020 CKD-EPI equation recommended by the National Kidney Foundation (A Unifying Approach to GFR Estimation: Recommendations of the NKF-ASK Task Force on Reassessing the Inclusion of Race in Diagnosing Kidney Disease, JASN 2020). The CKD-EPI equation should not be used for patients with unstable renal function and has not been validated in children and those over 70. Current interpretive data was last reviewed 2020. Blood 12/21/2024 5:28 AM CDT 12/21/2024 5:49 AM CDT Noel Polo MD LAB BLOOD ORDERABLES Final Result [facility] [address] [facility] Department [place] [address] * Differential, auto (12/21/2024 5:28 AM CDT) Pathologist [facility] Neutrophil abs 5.31 1.50 - 6.50 K/cumm Imm gran abs 0.02 0.00 - 0.10 K/cumm [facility] Lymphocyte abs 2.63 0.80 - 3.30 K/cumm [facility] Monocyte abs 0.60 0.20 - 0.80 K/cumm [facility] Eosinophil abs 0.14 0.00 - 0.50 K/cumm [facility] Basophil abs 0.04 0.00 - 0.10 K/cumm [facility] Neutrophil pct 60.7 % [facility] Comment: Interpretive Data Percent cell count reference ranges are not reported, since discordance with absolute values may lead to misinterpretation of CBC data. Current Interpretive Data was last revised on 2017. Imm gran pct 0.2 % [facility] Comment: Interpretive Data Percent cell count reference ranges are not reported, since discordance with absolute values may lead to misinterpretation of CBC data. Current Interpretive Data was last revised on 2017. Lymphocyte pct 30.1 % [facility] Comment: Interpretive Data Percent cell count reference ranges are not reported, since discordance with absolute values may lead to misinterpretation of CBC data. Current Interpretive Data was last revised on 2017. Monocyte pct 6.9 % [facility] Comment: Interpretive Data Percent cell count reference ranges are not reported, since discordance with absolute values may lead to misinterpretation of CBC data. Current Interpretive Data was last revised on 2017. Eosinophil pct 1.6 % [facility] Comment: Interpretive Data Percent cell count reference ranges are not reported, since discordance with absolute values may lead to misinterpretation of CBC data. Current Interpretive Data was last revised on 2017. Basophil pct 0.5 % [facility] Comment: Interpretive Data Percent cell count reference ranges are not reported, since discordance with absolute values may lead to misinterpretation of CBC data. Current Interpretive Data was last revised on 2017. Blood 12/21/2024 5:28 AM CDT 12/21/2024 5:49 AM CDT us Ed Null MD LAB BLOOD ORDERABLES Final Resul t [place] [id number] [facility] Department [place] [address] * (ABNORMAL) CBC with auto differential (12/21/2024 5:28 AM CDT) WBC 8.74 3.80 - 9.90 K/cumm Hgb 13.5 13.0 - 17.5 g/dL [facility] Hct 38.8(L) 38.9 - 50.3 % [facility] Plt 202 150 - 400 K/cumm [facility] MPV 10.0 9.1 - 12.3 fL [facility] RBC 4.31 4.30 - 5.80 M/cumm [facility] MCV 90.0 81.3 - 96.4 fL [facility] MCH 31.3 27.1 - 33.3 pg [facility] MCHC 34.8 32.3 - 35.7 g/dL [facility] RDW CV 13.2 11.1 - 14.9 % [facility] RDW SD 43.8 35.7 - 48.1 fL [facility] NRBC abs 0.00 0.00 - 0.01 K/cumm [facility] Blood 12/21/2024 5:28 AM CDT 12/21/2024 5:49 AM CDT us Ed Null MD LAB BLOOD ORDERABLES Final Resul t [place] [address] [facility] Department [place] [address] * (ABNORMAL) Comprehensive metabolic panel (12/21/2024 5:28 AM CDT) Sodium 134(L) 135 - 145 mmol/L Potassium, pl 3.7 3.3 - 4.9 mmol/L [facility] Chloride 101 97 - 110 mmol/L [facility] CO2 27 22 - 32 mmol/L [facility] Anion gap 6 2 - 15 mmol/L [facility] BUN 11 6 - 25 mg/dL [facility] Creatinine 0.81 0.80 - 1.30 mg/dL [facility] Glucose 229(H) 70 - 199 mg/dL [facility] Comment: Interpretive Data Fasting glucose >/= 126 mg/dl is diagnostic for diabetes. Fasting is defined as no caloric intake for at least 8 hours. Fasting glucose between 100 mg/dl to 125 mg/dl is diagnostic of prediabetes. In a patient with classic symptoms of hyperglycemia or hyperglycemic crisis, a random glucose >/= 200 mg/dl is diagnostic for diabetes. In the absence of unequivocal hyperglycemia, results should be confirmed by repeat testing. The classification and Diagnosis of Diabetes Diabetes Care 2021; 46: S19-S40. Current interpretive data was last revised 2022. Calcium 8.9 8.5 - 10.3 mg/dL [facility] Bilirubin, total 0.4 0.1 - 1.2 mg/dL [facility] Protein, pl 5.5(L) 6.5 - 8.5 g/dL [facility] Albumin 3.6 3.5 - 5.0 g/dL [facility] Alk phos 52 40 - 130 Units/L [facility] ALT 116(H) 7 - 55 Units/L [facility] AST 99(H) 10 - 50 Units/L [facility] Blood 12/21/2024 5:28 AM CDT 12/21/2024 5:49 AM CDT Noel Polo MD LAB BLOOD ORDERABLES Final Result Performing Organization Address [facility] Co de Phone Number [facility] [place] [address] * (ABNORMAL) POCT glucose (12/21/2024 12:13 AM CDT) Glucose, POC 227(H) 70 - 199 mg/dL Glucose comment 1 RN/MD Notified [facility] Blood 12/21/2024 12:1 3 AM CDT 12/21/2024 12:13 AM CDT us Noel Polo MD LAB POCT ORDERABLES - DEVICE Final Result Performing Organization Address [facility] Phone Number [address] [place] [address] * (ABNORMAL) POCT glucose (12/20/2024 8:55 PM CDT) Glucose, POC 347(H) 70 - 199 mg/dL Blood 12/20/2024 8:55 PM CDT 12/20/2024 8:55 PM CDT us Noel Polo MD LAB POCT ORDERABLES - DEVICE Final Result Performing Organization Address [facility] Co de Phone Number [address] [place] [address] * (ABNORMAL) POCT glucose (12/20/2024 8:54 PM CDT) Glucose, POC 358(H) 70 - 199 mg/dL Blood 12/20/2024 8:54 PM CDT 12/20/2024 8:54 PM CDT Noel Polo MD LAB POCT ORDERABLES - DEVICE Final Result Performing Organization Address [facility] Co de Phone Number [place] [address] [place] [address] * POCT glucose (12/20/2024 4:09 PM CDT) Glucose, POC 197 70 - 199 mg/dL Glucose comment 1 RN/MD Notified [place] Glucose comment 2 Follow Protocol [facility] Blood 12/20/2024 4:09 PM CDT 12/20/2024 4:09 PM CDT us Noel Polo MD LAB POCT ORDERABLES - DEVICE Final Result Performing Organization Address [facility] de Phone Number [id number] [place] [address] * (ABNORMAL) POCT glucose (12/20/2024 12:52 PM CDT) Glucose, POC 218(H) 70 - 199 mg/dL Glucose comment 1 RN/ Notified [facility] Glucose comment 2 Follow Protocol [facility] Blood 12/20/2024 12:5 2 PM CDT 12/20/2024 12:52 PM CDT us Noel Polo MD LAB POCT ORDERABLES - DEVICE Final Result Performing Organization Address [facility] de Phone Number [address] [place] [address] * POCT glucose (12/20/2024 7:57 AM CDT) Glucose, POC 185 70 - 199 mg/dL Glucose comment 1 RN/MD Notified [facility] Glucose comment 2 Follow Protocol [facility] Blood 12/20/2024 7:57 AM CDT 12/20/2024 7:57 AM CDT Nole Polo MD LAB POCT ORDERABLES - DEVICE Final Result Performing Organization Address [facility] Co de Phone Number [address] [place] [address] * eGFR (12/20/2024 4:10 AM CDT) [facility] eGFR >90 >=60 mL/min/1. 73 m2 Comment: Interpretive Data Reference Interval Normal >/= 90 mL/min/1.73m2 Mildly decreased* 60 - 89 mL/min/1.73m2 Mildly to moderately decreased 45 - 59 mL/min/1.73m2 Moderately to severely decreased 30 - 44 mL/min/1.73m2 Severely decreased 15 - 29 mL/min/1.73m2 Kidney Failure < 15 mL/min/1.73m2 *Relative to young adult level Estimated glomerular filtration rate is determined by the 2020 CKD-EPI equation recommended by the National Kidney Foundation (A Unifying Approach to GFR Estimation: Recommendations of the NKF-ASK Task Force on Reassessing the Inclusion of Race in Diagnosing Kidney Disease, JASN 2020). The CKD-EPI equation should not be used for patients with unstable renal function and has not been validated in children and those over 70. Current interpretive data was last reviewed 2020. Blood 12/20/2024 4:10 AM CDT 12/20/2024 4:26 AM CDT Noel Polo MD LAB BLOOD ORDERABLES Final Result [facility] Department [place] [address] * Differential, auto (12/20/2024 4:10 AM CDT) [facility] Neutrophil abs 5.11 1.50 - 6.50 K/cumm Imm gran abs 0.02 0.00 - 0.10 K/cumm [facility] Lymphocyte abs 2.26 0.80 - 3.30 K/cumm [facility] Monocyte abs 0.60 0.20 - 0.80 K/cumm [facility] Eosinophil abs 0.14 0.00 - 0.50 K/cumm [facility] Basophil abs 0.03 0.00 - 0.10 K/cumm [facility] Neutrophil pct 62.6 % [facility] Comment: Interpretive Data Percent cell count reference ranges are not reported, since discordance with absolute values may lead to misinterpretation of CBC data. Current Interpretive Data was last revised on 2017. Imm gran pct 0.2 % [facility] Comment: Interpretive Data Percent cell count reference ranges are not reported, since discordance with absolute values may lead to misinterpretation of CBC data. Current Interpretive Data was last revised on 2017. Lymphocyte pct 27.7 % [facility] Comment: Interpretive Data Percent cell count reference ranges are not reported, since discordance with absolute values may lead to misinterpretation of CBC data. Current Interpretive Data was last revised on 2017. Monocyte pct 7.4 % [facility] Comment: Interpretive Data Percent cell count reference ranges are not reported, since discordance with absolute values may lead to misinterpretation of CBC data. Current Interpretive Data was last revised on 2017. Eosinophil pct 1.7 % [facility] Comment: Interpretive Data Percent cell count reference ranges are not reported, since discordance with absolute values may lead to misinterpretation of CBC data. Current Interpretive Data was last revised on 2017. Basophil pct 0.4 % [facility] Comment: Interpretive Data Percent cell count reference ranges are not reported, since discordance with absolute values may lead to misinterpretation of CBC data. Current Interpretive Data was last revised on 2017. Blood 12/20/2024 4:10 AM CDT 12/20/2024 4:26 AM CDT us Ed Null MD LAB BLOOD ORDERABLES Final Resul t [facility] [id number] [facility] Department [place] [address] * (ABNORMAL) CBC with auto differential (12/20/2024 4:10 AM CDT) WBC 8.16 3.80 - 9.90 K/cumm Hgb 13.0 13.0 - 17.5 g/dL [facility] Hct 37.8(L) 38.9 - 50.3 % [facility] Plt 208 150 - 400 K/cumm [facility] MPV 9.7 9.1 - 12.3 fL [facility] RBC 4.14(L) 4.30 - 5.80 M/cumm [facility] MCV 91.3 81.3 - 96.4 fL [facility] MCH 31.4 27.1 - 33.3 pg [facility] MCHC 34.4 32.3 - 35.7 g/dL [facility] RDW CV 13.2 11.1 - 14.9 % [facility] RDW SD 44.0 35.7 - 48.1 fL [facility] NRBC abs 0.00 0.00 - 0.01 K/cumm [facility] Blood 12/20/2024 4:10 AM CDT 12/20/2024 4:26 AM CDT us Ed Null MD LAB BLOOD ORDERABLES Final Resul t [facility] [address] [facility] Department [place] [address] * (ABNORMAL) Comprehensive metabolic panel (12/20/2024 4:10 AM CDT) Sodium 139 135 - 145 mmol/L Potassium, pl 3.6 3.3 - 4.9 mmol/L [facility] Chloride 104 97 - 110 mmol/L [facility] CO2 26 22 - 32 mmol/L [facility] Anion gap 9 2 - 15 mmol/L [facility] BUN 8 6 - 25 mg/dL [facility] Creatinine 0.79(L) 0.80 - 1.30 mg/dL [facility] Glucose 201(H) 70 - 199 mg/dL [facility] Comment: Interpretive Data Fasting glucose >/= 126 mg/dl is diagnostic for diabetes. Fasting is defined as no caloric intake for at least 8 hours. Fasting glucose between 100 mg/dl to 125 mg/dl is diagnostic of prediabetes. In a patient with classic symptoms of hyperglycemia or hyperglycemic crisis, a random glucose >/= 200 mg/dl is diagnostic for diabetes. In the absence of unequivocal hyperglycemia, results should be confirmed by repeat testing. The classification and Diagnosis of Diabetes Diabetes Care 202; 46: S19-S40. Current interpretive data was last revised 2022. Calcium 8.8 8.5 - 10.3 mg/dL [facility] Bilirubin, total 0.4 0.1 - 1.2 mg/dL [facility] Protein, pl 5.3(L) 6.5 - 8.5 g/dL [facility] Albumin 3.4(L) 3.5 - 5.0 g/dL [facility] Alk phos 50 40 - 130 Units/L [facility] ALT 60(H) 7 - 55 Units/L [facility] AST 44 10 - 50 Units/L [facility] Blood 12/20/2024 4:10 AM CDT 12/20/2024 4:26 AM CDT us Noel Polo MD LAB BLOOD ORDERABLES Final Result Performing Organization Address [facility] Co de Phone Number [address] [place] [address] * (ABNORMAL) POCT glucose (12/19/2024 8:27 PM CDT) [facility] Glucose, POC 245(H) 70 - 199 mg/dL Blood 12/19/2024 8:27 PM CDT 12/19/2024 8:27 PM CDT us Noel Polo MD LAB POCT ORDERABLES - DEVICE Final Result Performing Organization Address [facility] Co de Phone Number [address] [place] [address] * CT Head WO Contrast (12/19/2024 5:28 PM CDT) Anatomical Region Laterality Modality Head and Neck N/A Computed Tomogra phy 12/19/2024 5:34 PM CDT Impressions 12/19/2024 5:34 PM CDT No acute intracranial process. Chronic changes are again noted. Electronically signed by: Geoff Enriquez M.D. Narrative 12/19/2024 5:34 PM CDT EXAMINATION: 1. CT head without contrast 2. 3D volume rendering of head CT HISTORY: Fall, injury TECHNIQUE: CT of the head was performed with images acquired from skull base to vertex without intravenous contrast. 3D surface reconstructions were performed by the technologist at the CT scanner. COMPARISON: 12/18/2024 FINDINGS: There is no acute intracranial hemorrhage. Moderate diffuse atrophy of the brain is noted. Patchy hypodensity of the cerebral white matter is consistent with chronic small vessel ischemic changes. Minor encephalomalacia in the left cerebellum is unchanged from previous. No mass effect or midline shift is present. The arteaga-white matter differentiation is normal. The visualized portions of the orbits are normal. The visualized portions of the mastoids are normal. The visualized portions of the paranasal sinuses are normal. No fractures are identified. 3D surface reconstructions show no sign of fracture. Procedure Note Geoff Enriquez MD - 12/19/2024 EXAMINATION: 1. CT head without contrast 2. 3D volume rendering of head CT HISTORY: Fall, injury TECHNIQUE: CT of the head was performed with images acquired from skull base to vertex without intravenous contrast. 3D surface reconstructions were performed by the technologist at the CT scanner. COMPARISON: 12/18/2024 FINDINGS: There is no acute intracranial hemorrhage. Moderate diffuse atrophy of the brain is noted. Patchy hypodensity of the cerebral white matter is consistent with chronic small vessel ischemic changes. Minor encephalomalacia in the left cerebellum is unchanged from previous. No mass effect or midline shift is present. The arteaga-white matter differentiation is normal. The visualized portions of the orbits are normal. The visualized portions of the mastoids are normal. The visualized portions of the paranasal sinuses are normal. No fractures are identified. 3D surface reconstructions show no sign of fracture. IMPRESSION: No acute intracranial process. Chronic changes are again noted. Electronically signed by: Geoff Enriquez M.D. us Noel Polo MD IMG CT PROCEDURES Fi nal Result * (ABNORMAL) POCT glucose (12/19/2024 4:33 PM CDT) Glucose, POC 255(H) 70 - 199 mg/dL Glucose comment 1 RN/MD Notified [facility] Blood 12/19/2024 4:33 PM CDT 12/19/2024 4:33 PM CDT us Noel Polo MD LAB POCT ORDERABLES - DEVICE Final Result Performing Organization Address City/[facility]/ZIP Co de Phone Number [facility] [address] [facility] Department [place] [address] * MCT Mobile Cardiac Telemetry Event Monitor (12/19/2024 3:56 PM CDT) Anatomical Region Laterality Modality Electrocardiogra phy Narrative 12/31/2024 1:35 PM [employer] Nine day event monitor. Indication. Syncope. Interpretation. The basic rhythm is sinus. Average daily heart rate 63. Fastest 100. Slowest heart rate 22 per minute which was at 9:45 p.m.. Occasional single PVC were seen with a PVC burden of 3%. A 4 beat run of ventricular tachycardia were seen at a rate of 96 per minute. Rare premature supraventricular beats were seen with the SVC burden of 1%. There was no atrial fibrillation or atrial flutter. Once at 9:45 p.m., the heart rate dropped to 22 per minute. Prolonged sinus pause was seen which lasted for 5.3 seconds. Conclusions. Normal sinus rhythm with the occasional single PVCs and rare single premature supraventricular beats. A 4 beat run of V-tach. Slowest heart rate of 22 per minute was recorded once at 9:45 p.m.. A prolonged 5.3 second long pause were seen at that time. us Sole Bishop MD CV CARDIAC SERVICES PROCE HERNÁN Final Result * POCT glucose (12/19/2024 11:05 AM CDT) [facility] Signature Glucose, POC 146 70 - 199 mg/dL Glucose comment 1 RN/MD Notified [facility] Blood 12/19/2024 11:0 5 AM CDT 12/19/2024 11:05 AM CDT us Noel Polo MD LAB POCT ORDERABLES - DEVICE Final Result [facility] [address] [place] [address] * POCT glucose (12/19/2024 7:10 AM CDT) Glucose, POC 136 70 - 199 mg/dL Glucose comment 1 RN/MD Notified [facility] Blood 12/19/2024 7:10 AM CDT 12/19/2024 7:10 AM CDT us Noel Polo MD LAB POCT ORDERABLES - DEVICE Final Result Performing Organization Address [facility] de Phone Number UMESH[address] [place] [address] * eGFR (12/19/2024 4:12 AM CDT) Pathologist [facility] eGFR >90 >=60 mL/min/1. 73 m2 Comment: Interpretive Data Reference Interval Normal >/= 90 mL/min/1.73m2 Mildly decreased* 60 - 89 mL/min/1.73m2 Mildly to moderately decreased 45 - 59 mL/min/1.73m2 Moderately to severely decreased 30 - 44 mL/min/1.73m2 Severely decreased 15 - 29 mL/min/1.73m2 Kidney Failure < 15 mL/min/1.73m2 *Relative to young adult level Estimated glomerular filtration rate is determined by the 2020 CKD-EPI equation recommended by the National Kidney Foundation (A Unifying Approach to GFR Estimation: Recommendations of the NKF-ASK Task Force on Reassessing the Inclusion of Race in Diagnosing Kidney Disease, JASN 2020). The CKD-EPI equation should not be used for patients with unstable renal function and has not been validated in children and those over 70. Current interpretive data was last reviewed 2020. Blood 12/19/2024 4:12 AM CDT 12/19/2024 4:31 AM CDT us Noel Polo MD LAB BLOOD ORDERABLES Final Result Performing Organization Address [facility] Co de Phone Number [facility] [address] [place] [address] * Differential, auto (12/19/2024 4:12 AM CDT) Neutrophil abs 4.35 1.50 - 6.50 K/cumm Imm gran abs 0.02 0.00 - 0.10 K/cumm [facility] Lymphocyte abs 2.49 0.80 - 3.30 K/cumm [facility] Monocyte abs 0.46 0.20 - 0.80 K/cumm [facility] Eosinophil abs 0.15 0.00 - 0.50 K/cumm [facility] Basophil abs 0.03 0.00 - 0.10 K/cumm [facility] Neutrophil pct 58.0 % [facility] Comment: Interpretive Data Percent cell count reference ranges are not reported, since discordance with absolute values may lead to misinterpretation of CBC data. Current Interpretive Data was last revised on 2017. Imm gran pct 0.3 % [facility] Comment: Interpretive Data Percent cell count reference ranges are not reported, since discordance with absolute values may lead to misinterpretation of CBC data. Current Interpretive Data was last revised on 2017. Lymphocyte pct 33.2 % [facility] Comment: Interpretive Data Percent cell count reference ranges are not reported, since discordance with absolute values may lead to misinterpretation of CBC data. Current Interpretive Data was last revised on 2017. Monocyte pct 6.1 % [facility] Comment: Interpretive Data Percent cell count reference ranges are not reported, since discordance with absolute values may lead to misinterpretation of CBC data. Current Interpretive Data was last revised on 2017. Eosinophil pct 2.0 % [facility] Comment: Interpretive Data Percent cell count reference ranges are not reported, since discordance with absolute values may lead to misinterpretation of CBC data. Current Interpretive Data was last revised on 2017. Basophil pct 0.4 % [facility] Comment: Interpretive Data Percent cell count reference ranges are not reported, since discordance with absolute values may lead to misinterpretation of CBC data. Current Interpretive Data was last revised on 2017. Blood 12/19/2024 4:12 AM CDT 12/19/2024 4:32 AM CDT Ed Null MD LAB BLOOD ORDERABLES Final Resul t Performing Organization Address [facility] de Phone Number [facility] [address] [place] [address] * (ABNORMAL) CBC with auto differential (12/19/2024 4:12 AM CDT) [facility] WBC 7.50 3.80 - 9.90 K/cumm Hgb 13.2 13.0 - 17.5 g/dL [facility] Hct 37.5(L) 38.9 - 50.3 % [facility] Plt 216 150 - 400 K/cumm [facility] MPV 9.7 9.1 - 12.3 fL [facility] RBC 4.15(L) 4.30 - 5.80 M/cumm [facility] MCV 90.4 81.3 - 96.4 fL [facility] MCH 31.8 27.1 - 33.3 pg [facility] MCHC 35.2 32.3 - 35.7 g/dL [facility] RDW CV 13.3 11.1 - 14.9 % [facility] RDW SD 44.0 35.7 - 48.1 fL [facility] NRBC abs 0.00 0.00 - 0.01 K/cumm [facility] Blood 12/19/2024 4:12 AM CDT 12/19/2024 4:32 AM CDT Ed Null MD LAB BLOOD ORDERABLES Final Resul t Performing Organization Address City/[facility] Co de Phone Number [facility] [address] [place] [address] * (ABNORMAL) Comprehensive metabolic panel (12/19/2024 4:12 AM CDT) [facility] Sodium 138 135 - 145 mmol/L Potassium, pl 3.7 3.3 - 4.9 mmol/L [facility] Chloride 105 97 - 110 mmol/L [facility] CO2 24 22 - 32 mmol/L [facility] Anion gap 9 2 - 15 mmol/L [facility] BUN 8 6 - 25 mg/dL [facility] Creatinine 0.80 0.80 - 1.30 mg/dL [facility] Glucose 192 70 - 199 mg/dL [facility] Comment: Delta - Results Reviewed Interpretive Data Fasting glucose >/= 126 mg/dl is diagnostic for diabetes. Fasting is defined as no caloric intake for at least 8 hours. Fasting glucose between 100 mg/dl to 125 mg/dl is diagnostic of prediabetes. In a patient with classic symptoms of hyperglycemia or hyperglycemic crisis, a random glucose >/= 200 mg/dl is diagnostic for diabetes. In the absence of unequivocal hyperglycemia, results should be confirmed by repeat testing. The classification and Diagnosis of Diabetes Diabetes Care 202; 46: S19-S40. Current interpretive data was last revised 2022. Calcium 8.8 8.5 - 10.3 mg/dL [facility] Bilirubin, total 0.4 0.1 - 1.2 mg/dL [facility] Protein, pl 5.4(L) 6.5 - 8.5 g/dL [facility] Albumin 3.4(L) 3.5 - 5.0 g/dL [facility] Alk phos 49 40 - 130 Units/L [facility] ALT 46 7 - 55 Units/L [facility] AST 27 10 - 50 Units/L [facility] Blood 12/19/2024 4:12 AM CDT 12/19/2024 4:31 AM CDT us Noel Polo MD LAB BLOOD ORDERABLES Final Result Performing Organization Address [facility] Co nm Phone Number [facility] [address] [facility] Department [place] [address] * POCT glucose (12/19/2024 3:46 AM CDT) [facility] Signature Glucose, POC 174 70 - 199 mg/dL Glucose comment 1 RN/MD Notified [facility] Blood 12/19/2024 3:46 AM CDT 12/19/2024 3:46 AM CDT Noel Polo MD LAB POCT ORDERABLES - DEVICE Final Result Performing Organization Address [facility] Co de Phone Number UMESH[address] [place] [address] * (ABNORMAL) POCT glucose (12/18/2024 11:42 PM CDT) Glucose, POC 247(H) 70 - 199 mg/dL Glucose comment 1 RN/MD Notified [facility] Blood 12/18/2024 11:4 2 PM CDT 12/18/2024 11:42 PM CDT us Noel Polo MD LAB POCT ORDERABLES - DEVICE Final Result Performing Organization Address [facility] de Phone Number [address] [place] [address] * (ABNORMAL) POCT glucose (12/18/2024 7:37 PM CDT) Glucose, POC 293(H) 70 - 199 mg/dL Glucose comment 1 RN/ Notified [facility] Blood 12/18/2024 7:37 PM CDT 12/18/2024 7:37 PM CDT us Noel Polo MD LAB POCT ORDERABLES - DEVICE Final Result Performing Organization Address [facility] de Phone Number [address] [place] [address] * (ABNORMAL) POCT glucose (12/18/2024 4:12 PM CDT) Glucose, POC 260(H) 70 - 199 mg/dL Glucose comment 1 RN/ Notified [facility] Blood 12/18/2024 4:12 PM CDT 12/18/2024 4:12 PM CDT us Noel Polo MD LAB POCT ORDERABLES - DEVICE Final Result Performing Organization Address [facility] Co de Phone Number [address] [place] [address] * TRANSTHORACIC ECHO (TTE) COMPLETE W DOPPLER/CF WO CONTRAST (12/18/2024 2:44 PM CDT) Estimated EF > % CONS SCIMAGE EF Mod BP 62 % CONS SCIMAGE Anatomical Region Laterality Modality Ultrasound 12/18/2024 2:08 PM CDT Narrative 12/18/2024 5:25 PM CDT Transthoracic Echocardiographic Report Patient Name: SAMANTHA MORENO R : 1960 (64y 6m) Sex: M Study Date: 12/18/2024 02:08:42 PM Ht(Inch): 69 Wt(Lb): 182.01 BSA: 2 Bit Sander: Sally Coley RDCS Location: [place] [address] Order Provider: ANAYA ARIAS Heart Rate: 74 BMI: 26.88 BP: 130 / 81 Ref Provider: ANAYA ARIAS PROCEDURES: Echocardiographic Report: ([id number]) Transthoracic complete echo, 2D, spectral and tissue Doppler, color flow Doppler, M-mode. Additional Procedures: Agitated saline bubble study. INDICATIONS: Stroke. FINDINGS: Left Ventricle: The left ventricle cavity is small. Concentric LV remodeling. There is hyperdynamic left ventricular systolic function. The Ejection Fraction (Munoz's) is measured at 62 %. The Ejection Fraction is visually estimated to be > 75 %. Diastolic Function Normal Left ventricular diastolic function and E to E' ratio is 8-15 which is in the indeterminate zone. No Thrombus noted in Left Ventricle. Resting Segmental Wall Motion Analysis: Total wall motion score is 1.00. There are no regional wall motion abnormalities. Regional Wall Motion: There are no regional wall motion abnormalities. Right Ventricle: Normal right ventricular size. Normal right ventricular systolic function. Left Atrium: The left atrium is normal in size. Right Atrium: The right atrium is normal in size. Atrial Septum: The interatrial septum is normal in appearance. Mitral Valve: Valve normal in structure and fuction. Mild mitral annular calcification. There is trace mitral valve regurgitation. No mitral valve stenosis. Aortic Valve: Valve normal in structure and fuction. Trileaflet aortic valve. The aortic cusps appear mildly sclerosed. No aortic regurgitation seen. No aortic valve stenosis. The mean transaortic gradient is 5 mmHg. Tricuspid Valve: Valve normal in structure and fuction. There is trace tricuspid regurgitation. Normal estimated pulmonary artery systolic pressure. No tricuspid valve stenosis. Pulmonic Valve: Pulmonic Valve not well visualized due to poor echo windows. No evidence of pulmonic regurgitation. No stenosis present. Pericardium: Normal pericardium without evidence of pericardial effusion. Aorta: Ascending aorta not well visualized. The aortic Sinus is normal in size. IVC: The inferior vena cava is collapsed at rest consistent with intravascular volume depletion. The estimated RA pressure is 1 mmHg. Rhythm: The rhythm during the study was normal sinus rhythm. CONCLUSIONS: 1. Small left ventricular cavity size with hyperdynamic systolic function. 2. The left ventricular ejection fraction is estimated at greater than 75%. 3. Normal wall motion. Mild concentric remodeling. 4. Likely normal diastolic function with normal left atrial pressure. Poor tissue Doppler signal. 5. Normal right ventricular size and systolic function. 6. Normal left and right atrial size. 7. No significant valvular abnormalities. 8. IVC is collapsed. Consider dehydration. RA pressure is low to normal. 9. No pulmonary hypertension. 10. No prior studies for comparison. 11. No cardiac source of embolism or syncope noted on this study. MEASUREMENTS: 2D/MM Value Range Doppler Value LVIDd 2D 4.01 cm [ 3.50 - 5.70 ] AV Peak Gigi 1.49 m/s LVIDs 2D 2.77 cm [ 3.10 - 4.60 ] AV Peak PG 8.88 mmHg IVSd 2D 1.10 cm [ 0.60 - 1.20 ] AV Mean PG 5.00 mmHg LVPWd 2D 1.10 cm [ 0.60 - 1.10 ] AV VTI 28.20 cm LV Thickness Ratio 1.00 LVOT Peak Gigi 1.32 m/s LV Mass 2D 148.26 g LVOT Peak PG 6.97 mmHg LV Mass Index 2D 73.95 g/m2 LVOT Mean PG 4.00 mmHg RWT 0.55 LVOT VTI 30.20 cm EDV Mod BP 74.40 ml [ 62.00 - 150.00 ] LVOT Diam 2.00 cm LV EDV Index 37.11 ml/m2 SV LVOT 95.00 cm3 ESV Mod BP 28.30 ml [ 21.00 - 61.00 ] MARLENI VTI 3.36 cm2 EF Mod BP 62 % [ 52 - 72 ] MARLENI Vmax 2.78 cm2 Visually Estimated EF > 75 % LVOT/AV VTI 1.07 - Dimensionless index (DVI) LA Dimension 2D 4.00 cm [ 1.90 - 4.00 ] MV E Peak Gigi 0.72 m/s LA Length 2C 6.23 cm MV A Peak Gigi 0.69 m/s LA Length 4C 5.42 cm MV E/A 1.00 ratio LA Volume BP 48.10 ml MV Decel Time 246.00 msec LA Volume Index 23.99 ml/m2 [ 16.00 - 34.00 ] Med E` Gigi 0.05 m/s RVDd 2D 2.98 cm [ 2.00 - 3.00 ] Lat E` Gigi 0.09 m/s TAPSE 2.21 cm [ 1.71 - 5.00 ] Average E/E` 10.29 RA Volume 20.50 ml RV S` 11.90 cm/sec RA Volume Index 10.23 ml/m2 RA Pressure 1.00 mmHg IVC Diam 0.56 cm PV Peak Gigi 1.09 m/s AoR Diam 2D 3.30 cm [ 2.00 - 3.70 ] PV Peak PG 4.75 mmHg Ao Root Index 1.65 cm/m2 [ 1.00 - 2.00 ] - ATTESTATION: I have reviewed and interpreted the pertinent images and measurements of this study. I attest to the conclusions in the final report that is provided above. DISCLAIMER: The study images and the final report will be retained in the patient chart by the [facility] for the legally required time period. This chart constitutes the legal record of any testing performed. Electronically Signed By: Mendez Howe MD 12/18/2024 5:24:35 PM CDT Procedure Note Mendez Howe MD - 12/18/2024 Transthoracic Echocardiographic Report Patient Name: SAMANTHA MORENO R : 1960 (64y 6m) Sex: M Study Date: 12/18/2024 02:08:42 PM Ht(Inch): 69 Wt(Lb): 182.01 BSA: 2 Bit Sander: Sally Coley RDCS Location: [place] [address] Order Provider:ANAYA ARIAS Heart Rate: 74 BMI: 26.88 BP: 130 / 81 Ref Provider: ANAYA ARIAS PROCEDURES: Echocardiographic Report: ([id number]) Transthoracic complete echo, 2D,spectral and tissue Doppler, color flow Doppler, M-mode. Additional Procedures: Agitated saline bubble study. INDICATIONS: Stroke. FINDINGS: Left Ventricle: The left ventricle cavity is small. Concentric LVremodeling. There is hyperdynamic left ventricular systolic function. The Ejection Fraction(Munoz's) is measured at 62 %. The Ejection Fraction is visually estimated to be > 75%. Diastolic Function Normal Left ventricular diastolic function and E to E' ratio is8-15 which is in the indeterminate zone. No Thrombus noted in Left Ventricle. Resting Segmental Wall Motion Analysis: Total wall motion score is 1.00.There are no regional wall motion abnormalities. Regional Wall Motion: There are no regional wall motion abnormalities. Right Ventricle: Normal right ventricular size. Normal right ventricularsystolic function. Left Atrium: The left atrium is normal in size. Right Atrium: The right atrium is normal in size. Atrial Septum: The interatrial septum is normal in appearance. Mitral Valve: Valve normal in structure and fuction. Mild mitral annularcalcification. There is trace mitral valve regurgitation. No mitral valve stenosis. Aortic Valve: Valve normal in structure and fuction. Trileaflet aorticvalve. The aortic cusps appear mildly sclerosed. No aortic regurgitation seen. No aorticvalve stenosis. The mean transaortic gradient is 5 mmHg. Tricuspid Valve: Valve normal in structure and fuction. There is tracetricuspid regurgitation. Normal estimated pulmonary artery systolic pressure. Notricuspid valve stenosis. Pulmonic Valve: Pulmonic Valve not well visualized due to poor echowindows. No evidence of pulmonic regurgitation. No stenosis present. Pericardium: Normal pericardium without evidence of pericardialeffusion. Aorta: Ascending aorta not well visualized. The aortic Sinus is normal insize. IVC: The inferior vena cava is collapsed at rest consistent withintravascular volume depletion. The estimated RA pressure is 1 mmHg. Rhythm: The rhythm during the study was normal sinus rhythm. CONCLUSIONS: 1. Small left ventricular cavity size with hyperdynamic systolicfunction. 2. The left ventricular ejection fraction is estimated at greater than75%. 3. Normal wall motion. Mild concentric remodeling. 4. Likely normal diastolic function with normal left atrial pressure. Poortissue Doppler signal. 5. Normal right ventricular size and systolic function. 6. Normal left and right atrial size. 7. No significant valvular abnormalities. 8. IVC is collapsed. Consider dehydration. RA pressure is low to normal. 9. No pulmonary hypertension. 10. No prior studies for comparison. 11. No cardiac source of embolism or syncope noted on this study. MEASUREMENTS: 2D/MM Value Range DopplerValue LVIDd 2D 4.01 cm [ 3.50 - 5.70 ] AV Peak Vel1.49 m/s LVIDs 2D 2.77 cm [ 3.10 - 4.60 ] AV Peak PG8.88 mmHg IVSd 2D 1.10 cm [ 0.60 - 1.20 ] AV Mean PG5.00 mmHg LVPWd 2D 1.10 cm [ 0.60 - 1.10 ] AV VTI28.20 cm LV Thickness Ratio 1.00 LVOT PeakVel 1.32 m/s LV Mass 2D 148.26 g LVOT Peak PG6.97 mmHg LV Mass Index 2D 73.95 g/m2 LVOT Mean PG4.00 mmHg RWT 0.55 LVOT VTI30.20 cm EDV Mod BP 74.40 ml [ 62.00 - 150.00 ] LVOT Diam2.00 cm LV EDV Index 37.11 ml/m2 SV LVOT95.00 cm3 ESV Mod BP 28.30 ml [ 21.00 - 61.00 ] MARLENI VTI3.36 cm2 EF Mod BP 62 % [ 52 - 72 ] MARLENI Vmax2.78 cm2 Visually Estimated EF > 75 % LVOT/AV VTI1.07 - Dimensionless index (DVI) LA Dimension 2D 4.00 cm [ 1.90 - 4.00 ] MV E PeakVel 0.72 m/s LA Length 2C 6.23 cm MV A PeakVel 0.69 m/s LA Length 4C 5.42 cm MV E/A1.00 ratio LA Volume BP 48.10 ml MV DecelTime 246.00 msec LA Volume Index 23.99 ml/m2 [ 16.00 - 34.00 ] Med E` Vel0.05 m/s RVDd 2D 2.98 cm [ 2.00 - 3.00 ] Lat E` Vel0.09 m/s TAPSE 2.21 cm [ 1.71 - 5.00 ] Average E/E`10.29 RA Volume 20.50 ml RV S`11.90 cm/sec RA Volume Index 10.23 ml/m2 RA Pressure1.00 mmHg IVC Diam 0.56 cm PV Peak Vel1.09 m/s AoR Diam 2D 3.30 cm [ 2.00 - 3.70 ] PV Peak PG4.75 mmHg Ao Root Index 1.65 cm/m2 [ 1.00 - 2.00 ] - ATTESTATION: I have reviewed and interpreted the pertinent images and measurements ofthis study. I attest to the conclusions in the final report that is provided above. DISCLAIMER: The study images and the final report will be retained in the patientchart by the [facility] for the legally required time period. This chart constitutesthe legal record of any testing performed. Electronically Signed By: Mendez Howe MD 12/18/2024 5:24:35 PM CDT Anaya Hernandeztoroshahida ANKITA CV ECHO PROCEDURES Final Res ult * CTA Head Neck W WO Contrast (12/18/2024 1:46 PM CDT) Anatomical Region Laterality Modality Head and Neck N/A Computed Tomogra phy 12/18/2024 2:11 PM CDT Narrative 12/18/2024 2:45 PM CDT EXAM DESCRIPTION: CTA HEAD NECK W WO CONTRAST REASON FOR STUDY: Neuro deficit, acute, stroke suspected Recent CVA symptoms, unsteady gait TECHNIQUE: Axial images were first obtained through the brain without contrast. Axial dynamic scanning technique with dynamic contrast enhancement through the intracranial and extracranial carotid and vertebral arteries. Multiplanar reconstruction. All stenosis measurements are based on NASCET criteria. 3D MIP images rendered on scanning unit and reviewed at time of interpretation. Automated exposure control was used as a dose optimization technique for this examination. CONTRAST TYPE/DOSE: 95mL of IOVERSOL 350 MG IODINE/ML INTRAVENOUS SYRINGE injected via intravenous COMPARISON: Brain MRI from 12/17/2024. FINDINGS: BRAIN CEREBRUM: No acute hemorrhage. No acute infarct is identified. Normal size ventricular system. No focal lesion or infarct. WHITE MATTER: Patchy low density of white matter throughout periventricular and subcortical regions in keeping with microvascular change, relatively mild. POSTERIOR FOSSA: Focal area of encephalomalacia along the inferior medial left cerebellar hemisphere. Tiny old lacunar infarct of the inferior right cerebellar hemisphere. EXTRA-AXIAL SPACES: No fluid collections. No masses. ORBITS: No significant abnormality. CALVARIUM: No fracture. SINUSES/MASTOIDS: No fluid or mucosal thickening. OTHER: No other significant abnormality. INTRACRANIAL VESSELS [place]: The anterior, middle, posterior cerebral arteries are all patent. No evidence of aneurysm or focal stenosis. POSTERIOR CIRCULATION: The distal vertebral arteries are patent as is the basilar artery. No aneurysm. 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 The right PICA comes off low at the foramen magnum from the right vertebral artery and is difficult to visualize but appears patent. BRAIN: No gross enhancing lesions as visualized. CAROTID CTA RIGHT CAROTIDS: Mild plaque the carotid bifurcation. No significant narrowing of the internal external or common carotid artery. LEFT CAROTIDS: Mild calcific plaque at the left carotid bifurcation. No significant stenosis of the internal, external or common carotid artery. LEFT VERTEBRAL: Normal size codominant vertebral artery. No stenosis or plaque. RIGHT VERTEBRAL: Normal size vertebral artery. No stenosis dissection or plaque. AORTIC ARCH: Normal three-vessel origin. Bilateral subclavian arteries are patent. No dissection. NECK SOFT TISSUE: Incidental small tracheal diverticula at the thoracic inlet. No thyroid nodule. No concerning soft tissue abnormality. INCLUDED LUNGS: No acute abnormality. No worrisome nodules. OTHER: No other significant finding. IMPRESSION: BRAIN: No acute abnormalities. INTRACRANIAL CTA: 1. 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 2. Otherwise, no intracranial vascular abnormality. CAROTID CTA: No significant carotid or vertebral artery stenosis in the neck. THIS IS AN ELECTRONICALLY VERIFIED FINAL REPORT 12/18/2024 2:45 PM - Electronically signed by Dion Gutierres M.D. T: Report ID: [id number] Reading Location: [place] [address] Procedure Note Melinda Gutierres MD - 12/18/2024 EXAM DESCRIPTION: CTA HEAD NECK W WO CONTRAST REASON FOR STUDY: Neuro deficit, acute, stroke suspected Recent CVA symptoms, unsteady gait TECHNIQUE: Axial images were first obtained through the brain without contrast. Axial dynamic scanning technique with dynamic contrast enhancement throughthe intracranial and extracranial carotid and vertebral arteries. Multiplanar reconstruction. All stenosis measurements are based on NASCET criteria. 3D MIP images rendered on scanning unit and reviewed at time of interpretation. Automated exposure control was used as a dose optimization technique forthis examination. CONTRAST TYPE/DOSE: 95mL of IOVERSOL 350 MG IODINE/ML INTRAVENOUSSYRINGE injected via intravenous COMPARISON: Brain MRI from 12/17/2024. FINDINGS: BRAIN CEREBRUM: No acute hemorrhage. No acute infarct is identified. Normalsize ventricular system. No focal lesion or infarct. WHITE MATTER: Patchy low density of white matter throughoutperiventricular and subcortical regions in keeping with microvascular change, relativelymild. POSTERIOR FOSSA: Focal area of encephalomalacia along the inferiormedial left cerebellar hemisphere. Tiny old lacunar infarct of the inferiorright cerebellar hemisphere. EXTRA-AXIAL SPACES: No fluid collections. No masses. ORBITS: No significant abnormality. CALVARIUM: No fracture. SINUSES/MASTOIDS: No fluid or mucosal thickening. OTHER: No other significant abnormality. INTRACRANIAL VESSELS [place]: The anterior, middle, posterior cerebral arteries areall patent. No evidence of aneurysm or focal stenosis. POSTERIOR CIRCULATION: The distal vertebral arteries are patent as isthe basilar artery. No aneurysm. Reformatted images demonstrate abrupt truncation-occlusion of the left PICA just distal to its origin from theleft vertebral artery. The right PICA comes off low at the foramen magnum fromthe right vertebral artery and is difficult to visualize but appears patent. BRAIN: No gross enhancing lesions as visualized. CAROTID CTA RIGHT CAROTIDS: Mild plaque the carotid bifurcation. No significant narrowing of the internal external or common carotid artery. LEFT CAROTIDS: Mild calcific plaque at the left carotid bifurcation. No significant stenosis of the internal, external or common carotid artery. LEFT VERTEBRAL: Normal size codominant vertebral artery. No stenosis or plaque. RIGHT VERTEBRAL: Normal size vertebral artery. No stenosis dissectionor plaque. AORTIC ARCH: Normal three-vessel origin. Bilateral subclavian arteriesare patent. No dissection. NECK SOFT TISSUE: Incidental small tracheal diverticula at the thoracic inlet. No thyroid nodule. No concerning soft tissue abnormality. INCLUDED LUNGS: No acute abnormality. No worrisome nodules. OTHER: No other significant finding. IMPRESSION: BRAIN: No acute abnormalities. INTRACRANIAL CTA: 1. Abrupt truncation-occlusion of the left PICA just distal to itsorigin from the left vertebral artery. 2. Otherwise, no intracranial vascular abnormality. CAROTID CTA: No significant carotid or vertebral artery stenosis in the neck. THIS IS AN ELECTRONICALLY VERIFIED FINAL REPORT 12/18/2024 2:45 PM - Electronically signed by Dion NINO T: Report ID: [id number] Reading Location: [place] [address] us Blanca GONZALEZ IMG CT PROCEDURES Final Res ult * REHANA ab ql w/rflx to REHANA qn (12/18/2024 11:56 AM CDT) REHANA Negative Comment: Interpretive Data Normal range for REHANA Qualitative Antibody = Negative. 1. REHANA is performed using indirect immunofluorescence against HEp-2 cells 2. REHANA titers are performed on all positive qualitative results. 3. A significantly positive REHANA result is defined as a positive nuclear fluorescence at a titer of 1:80 or greater. 4. 15% of normal people above age 65 have significantly positive REHANA results. 5% or less of normal people age 65 or under have significantly positive REHANA results. Current interpretive data was last revised on 2019. Testing performed by: [facility], [address] [place] [address]., [id number] Blood 12/18/2024 11:5 6 AM CDT 12/18/2024 3:41 PM CDT Tesfaye Holliday MD LAB BLOOD ORDERABLES Final Resu lt Performing Organization Address [facility] de Phone Number [facility] [address] [facility] [place] [address] * Smooth muscle antibody, quantitative (12/18/2024 11:56 AM CDT) Anti-smooth muscle, quant Negative Negative Comment: Interpretive Data Negative: Titers equal to or less than 1:20. Titers greater than 1:20 may be present in acute viral hepatitis, lupoid hepatitis, infectious mononucleosis, and malignancy. Titers greater than 1:80 highly suggestive of chronic active hepatitis. Current interpretive data was last revised on 2014. Testing performed by: [facility], [address] [place] [address]., [id number] Blood 12/18/2024 11:5 6 AM CDT 12/18/2024 3:40 PM CDT Tesfaye Holliday MD LAB BLOOD ORDERABLES Final Resu lt [address] [place] [address] * Mitochondrial antibodies, qualitative (12/18/2024 11:56 AM CDT) Pathologist [facility] Anti-mitochond rial Negative Negative Comment:Testing performed by : [facility], [address] [place] [address] Blood 12/18/2024 11:5 6 AM CDT 12/18/2024 3:40 PM CDT Tesfaye Holliday MD LAB BLOOD ORDERABLES Final Resu lt [address] [address] * (ABNORMAL) Iron profile w/ IBC (12/18/2024 11:56 AM CDT) [facility] Iron 54 50 - 150 mcg/dL TIBC 235(L) 250 - 400 mcg/dL [facility] Transferrin saturation 23 20 - 50 % [facility] Blood 12/18/2024 11:5 6 AM CDT 12/18/2024 12:01 PM CDT Tesfaye Holliday MD LAB BLOOD ORDERABLES Final Resu lt [address] [address] * Ceruloplasmin (12/18/2024 11:56 AM CDT) [facility] Ceruloplasmin 15.8 15.0 - 30.0 mg/dL Comment:Testing performed by : [facility], [address] [facility] [address] [address], [place]., [address] Blood 12/18/2024 11:5 6 AM CDT 12/18/2024 3:40 PM CDT Tesfaye Holliday MD LAB BLOOD ORDERABLES Final Resu lt Performing Organization Address [facility] Co de Phone Number [address] [place] [address] * (ABNORMAL) POCT glucose (12/18/2024 11:09 AM CDT) Glucose, POC 221(H) 70 - 199 mg/dL Glucose comment 1 RN/MD Notified [facility] Blood 12/18/2024 11:0 9 AM CDT 12/18/2024 11:09 AM CDT Noel Polo MD LAB POCT ORDERABLES - DEVICE Final Result Performing Organization Address [facility] Co de Phone Number [address] [place] [address] * POCT glucose (12/18/2024 7:43 AM CDT) Glucose, POC 148 70 - 199 mg/dL Glucose comment 1 RN/MD Notified [facility] Blood 12/18/2024 7:43 AM CDT 12/18/2024 7:43 AM CDT Noel Polo MD LAB POCT ORDERABLES - DEVICE Final Result Performing Organization Address [facility] Co de Phone Number [address] [place] [address] * POCT glucose (12/18/2024 7:24 AM CDT) Glucose, POC 75 70 - 199 mg/dL Glucose comment 1 RN/ Notified [place] Blood 12/18/2024 7:24 AM CDT 12/18/2024 7:24 AM CDT Noel Polo MD LAB POCT ORDERABLES - DEVICE Final Result Performing Organization Address [facility]/ZIP Co de Phone Number [address] [place] [address] * (ABNORMAL) POCT glucose (12/18/2024 7:04 AM CDT) Pathologist [facility] Glucose, POC 63(L) 70 - 199 mg/dL Glucose comment 1 RN/MD Notified [facility] Blood 12/18/2024 7:04 AM CDT 12/18/2024 7:04 AM CDT us Noel Polo MD LAB POCT ORDERABLES - DEVICE Final Result Performing Organization Address [facility] Co de Phone Number [address] [address] * eGFR (12/18/2024 4:30 AM CDT) [facility] eGFR >90 >=60 mL/min/1. 73 m2 Comment: Interpretive Data Reference Interval Normal >/= 90 mL/min/1.73m2 Mildly decreased* 60 - 89 mL/min/1.73m2 Mildly to moderately decreased 45 - 59 mL/min/1.73m2 Moderately to severely decreased 30 - 44 mL/min/1.73m2 Severely decreased 15 - 29 mL/min/1.73m2 Kidney Failure < 15 mL/min/1.73m2 *Relative to young adult level Estimated glomerular filtration rate is determined by the 2020 CKD-EPI equation recommended by the National Kidney [employer] (A Unifying Approach to GFR Estimation: Recommendations of the NKF-ASK Task Force on Reassessing the Inclusion of Race in Diagnosing Kidney Disease, JASN 2020). The CKD-EPI equation should not be used for patients with unstable renal function and has not been validated in children and those over 70. Current interpretive data was last reviewed 2020. Blood 12/18/2024 4:30 AM CDT 12/18/2024 4:40 AM CDT us Ed Null MD LAB BLOOD ORDERABLES Final Resul t Performing Organization Address City/[facility]/ZIP Co de Phone Number [address] [place] [address] * Differential, auto (12/18/2024 4:30 AM CDT) Pathologist [facility] Neutrophil abs 3.87 1.50 - 6.50 K/cumm Imm gran abs 0.02 0.00 - 0.10 K/cumm [facility] Lymphocyte abs 2.78 0.80 - 3.30 K/cumm [facility] Monocyte abs 0.48 0.20 - 0.80 K/cumm [facility] Eosinophil abs 0.12 0.00 - 0.50 K/cumm [facility] Basophil abs 0.03 0.00 - 0.10 K/cumm [facility] Neutrophil pct 53.0 % [facility] Comment: Interpretive Data Percent cell count reference ranges are not reported, since discordance with absolute values may lead to misinterpretation of CBC data. Current Interpretive Data was last revised on 2017. Imm gran pct 0.3 % [facility] Comment: Interpretive Data Percent cell count reference ranges are not reported, since discordance with absolute values may lead to misinterpretation of CBC data. Current Interpretive Data was last revised on 2017. Lymphocyte pct 38.1 % [facility] Comment: Interpretive Data Percent cell count reference ranges are not reported, since discordance with absolute values may lead to misinterpretation of CBC data. Current Interpretive Data was last revised on 2017. Monocyte pct 6.6 % [facility] Comment: Interpretive Data Percent cell count reference ranges are not reported, since discordance with absolute values may lead to misinterpretation of CBC data. Current Interpretive Data was last revised on 2017. Eosinophil pct 1.6 % [facility] Comment: Interpretive Data Percent cell count reference ranges are not reported, since discordance with absolute values may lead to misinterpretation of CBC data. Current Interpretive Data was last revised on 2017. Basophil pct 0.4 % [facility] Comment: Interpretive Data Percent cell count reference ranges are not reported, since discordance with absolute values may lead to misinterpretation of CBC data. Current Interpretive Data was last revised on 2017. Blood 12/18/2024 4:30 AM CDT 12/18/2024 4:40 AM CDT Ed Null MD LAB BLOOD ORDERABLES Final Resul t Performing Organization Address [facility] de Phone Number [place] [address] [address] * CBC with auto differential (12/18/2024 4:30 AM CDT) WBC 7.30 3.80 - 9.90 K/cumm Hgb 13.4 13.0 - 17.5 g/dL [facility] Hct 39.8 38.9 - 50.3 % [facility] Plt 224 150 - 400 K/cumm [facility] MPV 9.4 9.1 - 12.3 fL [facility] RBC 4.39 4.30 - 5.80 M/cumm [facility] MCV 90.7 81.3 - 96.4 fL [facility] MCH 30.5 27.1 - 33.3 pg [facility] MCHC 33.7 32.3 - 35.7 g/dL [facility] RDW CV 13.2 11.1 - 14.9 % [facility] RDW SD 43.5 35.7 - 48.1 fL [facility] NRBC abs 0.00 0.00 - 0.01 K/cumm [facility] Blood 12/18/2024 4:30 AM CDT 12/18/2024 4:40 AM CDT Ed Null MD LAB BLOOD ORDERABLES Final Resul t Performing Organization Address [facility] de Phone Number UMESH[address] [place] [address] * (ABNORMAL) Lipid panel (12/18/2024 4:30 AM CDT) Cholesterol 78 30 - 199 mg/dL Comment: Interpretive Data Ages < or = 19 years Acceptable: <170 mg/dL Borderline high: 170-199 mg/dL High: >or= 200 mg/dL Ages > or = 20 years Desirable: <200 mg/dL Borderline high: 200-239 mg/dL High: >or= 240 mg/dL Literature References: 1. Expert Panel on Integrated Guidelines for Cardiovascular Health and Risk Reduction in Children and Adolescents. Pediatrics 2011;128:S213 2. NCEP Expert Panel. Circulation 2004;110:227 Current Interpretive Data was last revised on 2017. Triglycerides 77 <=149 mg/dL [place] Comment: Interpretive Data Ages < or = 9 years Acceptable: <75 mg/dL Borderline high: 75-99 mg/dL High: >or= 100 mg/dL Ages 10 to 20 years Acceptable: <90 mg/dL Borderline high: 90-129 mg/dL High: >or= 130 mg/dL Ages > or = 20 years Desirable: <150 mg/dL Borderline high: 150-199 mg/dL High: 200-499 mg/dL Very high: >or= 499 mg/dL Literature References: 1. Expert Panel on Integrated Guidelines for Cardiovascular Health and Risk Reduction in Children and Adolescents. Pediatrics 2011;128:S213 2. NCEP Expert Panel. Circulation 2004;110:227 Current Interpretive Data was last revised on 2017. HDL 37(L) >=40 mg/dL [facility] Comment: Interpretive Data Ages < or = 19 years Acceptable: >45 mg/dL Borderline low: 40-45 mg/dL Low: <40 mg/dL Ages > or = 20 years Desirable: >or= 60 mg/dL Low: <40 mg/dL Literature References: 1. Expert Panel on Integrated Guidelines for Cardiovascular Health and Risk Reduction in Children and Adolescents. Pediatrics 2011;128:S213 2. NCEP Expert Panel. Circulation 2004;110:227 Current Interpretive Data was last revised on 2017. LDL, calculated 25 <=129 mg/dL [facility] Comment: Interpretive Data Ages < or = 19 years Acceptable: <110 mg/dL Borderline high: 110-129 mg/dL High: >or= 130 mg/dL Ages > or = 20 years Optimal: <100 mg/dL Near optimal: 100-129 mg/dL Borderline high: 130-159 mg/dL High: >160 mg/dL Calculated using the Sesay LDL-C estimating equation. This equation was implemented on 2023. Prior to this date LDL-C was estimated using the Friedewald equation. Literature References: 1. Expert Panel on Integrated Guidelines for Cardiovascular Health and Risk Reduction in Children and Adolescents. Pediatrics 2011;128:S213 2. NCEP Expert Panel. Circulation 2004;110:227 3. Lázaro M et al. NATALEE Cardiol. 2020 June 28;5(5):540-548. doi: 10.1001/jamacardio.2020.0013 Current Interpretive Data was last revised on 2023. Non-HDL Cholesterol 41 mg/dL [facility] Comment: Interpretive Data Ages < or = 19 years Acceptable: <120 mg/dL Borderline high: 120-144 mg/dL High: >145 mg/dL Ages > or = 20 years When triglycerides are >200 mg/dL, Non-HDL cholesterol is a secondary target of therapy with treatment goals that are 30 mg/dL greater than the LDL cholesterol target. Literature References: 1. Expert Panel on Integrated Guidelines for Cardiovascular Health and Risk Reduction in Children and Adolescents. Pediatrics 2011;128:S213 2. NCEP Expert Panel. Circulation 2004;110:227 Current Interpretive Data was last revised on 2017. Chol/HDL ratio 2 [facility] Blood 12/18/2024 4:30 AM CDT 12/18/2024 4:40 AM CDT us Anaya Arias NP LAB BLOOD ORDERABLES Final R esult [facility] [address] [facility] Department [place] [address] * (ABNORMAL) Basic metabolic panel (12/18/2024 4:30 AM CDT) [facility] Sodium 139 135 - 145 mmol/L Potassium, pl 3.0(L) 3.3 - 4.9 mmol/L [facility] Chloride 104 97 - 110 mmol/L [facility] CO2 23 22 - 32 mmol/L [facility] Anion gap 12 2 - 15 mmol/L [facility] BUN 8 6 - 25 mg/dL [facility] Creatinine 0.77(L) 0.80 - 1.30 mg/dL [facility] Glucose 77 70 - 199 mg/dL [facility] Comment: Interpretive Data Fasting glucose >/= 126 mg/dl is diagnostic for diabetes. Fasting is defined as no caloric intake for at least 8 hours. Fasting glucose between 100 mg/dl to 125 mg/dl is diagnostic of prediabetes. In a patient with classic symptoms of hyperglycemia or hyperglycemic crisis, a random glucose >/= 200 mg/dl is diagnostic for diabetes. In the absence of unequivocal hyperglycemia, results should be confirmed by repeat testing. The classification and Diagnosis of Diabetes Diabetes Care 2021; 46: S19-S40. Current interpretive data was last revised 2022. Calcium 8.8 8.5 - 10.3 mg/dL [facility] Blood 12/18/2024 4:30 AM CDT 12/18/2024 4:40 AM CDT us Ed Null MD LAB BLOOD ORDERABLES Final Resul t Performing Organization Address City/[facility]/ZIP Co de Phone Number [address] [place] [employer] [place] [address] * POCT glucose (12/17/2024 7:21 PM CDT) [facility] Glucose, POC 106 70 - 199 mg/dL Glucose comment 1 RN/MD Notified [facility] Blood 12/17/2024 7:21 PM CDT 12/17/2024 7:21 PM CDT us Sole Bishop MD LAB POCT ORDERABLES - DEV ICE Final Result Performing Organization Address City/[facility] Co de Phone Number [address] [place] [address] * MRI Brain Epilepsy W WO Contrast (12/17/2024 5:42 PM CDT) Anatomical Region Laterality Modality Head and Neck N/A Magnetic Resonan ce 12/17/2024 7:55 PM CDT Narrative 12/17/2024 8:26 PM CDT EXAM DESCRIPTION: MRI BRAIN EPILEPSY W WO CONTRAST REASON FOR STUDY: Seizure, abnormal neuro exam episode of unresponsiveness. Pt states he has been feeling unwell for the past 15 days with symptoms including dry heaving with nausea, occasional vomiting, occasionally unbalanced while standing and ambulating TECHNIQUE: Multiplanar imaging includes noncontrast T1, T2, FLAIR, diffusion with ADC map and post contrast T1 sequences. Additional sequence(s) sensitive to blood products. Images stored on PACS. CONTRAST TYPE/DOSE: 15mL of GADOTERATE MEGLUMINE 0.5 MMOL/ML INTRAVENOUS SOLUTION (SO) injected via intravenous COMPARISON: Head CT comparison from 12/16/2024. FINDINGS: CEREBRUM: No hemorrhage, edema, or mass effect. Old lacunar infarction of the left thalamus. Additional lacunar infarct of the left caudothalamic region. Bilateral basal ganglia lacunar infarcts also evident. No abnormal enhancement. No abnormality on blood sensitive gradient T2 weighted sequences to indicate hemosiderin or other chronic blood breakdown product deposition in the brain. WHITE MATTER: Numerous foci of T2 hyperintensity scattered throughout periventricular and subcortical regions bilaterally in keeping with likely microvascular change. There is also a lacunar infarct of left periatrial white matter. POSTERIOR FOSSA: Tiny acute infarct of the dorsal medial left lateral medullary plate in keeping with Wallenberg type infarct. Also noted is an old infarct in the inferior left cerebellum. Both infarcts suggest ischemic change in the distribution of left PICA. DIFFUSION IMAGING: Diffusion restriction involving the dorsal medulla in keeping with acute infarction. EXTRAAXIAL SPACES: No hemorrhage. No mass or abnormal enhancement. BRAIN VOLUME: Within normal limits for age. PITUITARY: Unremarkable. VASCULATURE: No flow disturbance identified. ORBITS: No masses. Globes normal. PARANASAL SINUSES AND MASTOIDS: Well-aerated with no fluid levels. No mucosa thickening. OTHER: No other significant finding. IMPRESSION: 1. 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 Additional old infarct of the inferior left cerebellum. Both findings suggest ischemic change in the distribution of left PICA. 2. Numerous old lacunar infarcts of the bilateral basal ganglia, left thalamus and left periatrial white matter. 3. Extensive microvascular change of periventricular white matter. 4. Acute findings discussed with patient's nurse, DANN Ortez, at the time of dictation. THIS IS AN ELECTRONICALLY VERIFIED FINAL REPORT 12/17/2024 8:26 PM - Electronically signed by Dion Gutierres M.D. LC T: Report ID: [id number] Reading Location: [id number] Procedure Note Melinda Gutierres MD - 12/17/2024 EXAM DESCRIPTION: MRI BRAIN EPILEPSY W WO CONTRAST REASON FOR STUDY: Seizure, abnormal neuro exam episode of unresponsiveness. Pt states he has been feeling unwell for thepast 15 days with symptoms including dry heaving with nausea, occasionalvomiting, occasionally unbalanced while standing and ambulating TECHNIQUE: Multiplanar imaging includes noncontrast T1, T2, FLAIR,diffusion with ADC map and post contrast T1 sequences. Additional sequence(s)sensitive to blood products. Images stored on PACS. CONTRAST TYPE/DOSE: 15mL of GADOTERATE MEGLUMINE 0.5 MMOL/ML INTRAVENOUS SOLUTION (SO) injected via intravenous COMPARISON: Head CT comparison from 12/16/2024. FINDINGS: CEREBRUM: No hemorrhage, edema, or mass effect. Old lacunar infarction of the left thalamus. Additional lacunar infarct of the left caudothalamic region. Bilateral basal ganglia lacunar infarcts alsoevident. No abnormal enhancement. No abnormality on blood sensitive gradient T2 weighted sequences to indicate hemosiderin or other chronic bloodbreakdown product deposition in the brain. WHITE MATTER: Numerous foci of T2 hyperintensity scattered throughout periventricular and subcortical regions bilaterally in keeping with likely microvascular change. There is also a lacunar infarct of left periatrial white matter. POSTERIOR FOSSA: Tiny acute infarct of the dorsal medial left lateral medullary plate in keeping with Wallenberg type infarct. Also noted is anold infarct in the inferior left cerebellum. Both infarcts suggest ischemic change in the distribution of left PICA. DIFFUSION IMAGING: Diffusion restriction involving the dorsal medulla in keeping with acute infarction. EXTRAAXIAL SPACES: No hemorrhage. No mass or abnormal enhancement. BRAIN VOLUME: Within normal limits for age. PITUITARY: Unremarkable. VASCULATURE: No flow disturbance identified. ORBITS: No masses. Globes normal. PARANASAL SINUSES AND MASTOIDS: Well-aerated with no fluid levels. Nomucosa thickening. OTHER: No other significant finding. IMPRESSION: 1. 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 Additional old infarct of theinferior left cerebellum. Both findings suggest ischemic change in thedistribution of left PICA. 2. Numerous old lacunar infarcts of the bilateral basal ganglia, left thalamus and left periatrial white matter. 3. Extensive microvascular change of periventricular white matter. 4. Acute findings discussed with patient's nurse, DANN Ortez, at thetime of dictation. THIS IS AN ELECTRONICALLY VERIFIED FINAL REPORT 12/17/2024 8:26 PM - Electronically signed by Dion NINO T: Report ID: [id number] Reading Location: [id number] us Nura Lebron MD IMG MRI PROCEDURES F inal Result * POCT glucose (12/17/2024 3:05 PM CDT) Glucose, POC 126 70 - 199 mg/dL Blood 12/17/2024 3:05 PM CDT 12/17/2024 3:05 PM CDT Sole Bisohp MD LAB POCT ORDERABLES - DEV ICE Final Result [facility] [address] [facility] Department [place] [address] * EEG (12/17/2024 1:56 PM CDT) Anatomical Region Laterality Modality Other Narrative 12/17/2024 2:30 PM CDT Nura Lebron MD 12/17/2024 2:31 PM Reason for exam: Seizure-like episode, syncope episode Technical: This is a digitally recorded electroencephalogram. It was just over 29 minutes long. The international 10-20 electrode placement system is used for scalp electrode placement. Eighteen channels of scalp EEG are recorded. One channel was used for EOG. Another channel was used for ECG. The data are stored digitally and reviewed in reformatted montages for optimal display. Background: 8-9 hertz alpha background activity was seen. Maximal over the posterior head region. These activities are symmetric on both sides. They attenuated with eye opening. Description: No focal slowing was seen. No seizure like activity was observed during this recording. Patient entered into periods of drowsiness and light sleep. . Hyperventilation was not performed due to patient's clinical condition. Photic stimulation was performed without any additional abnormalities. Impression: Normal EEG. No focal slowing, no seizure like activity was observed. Correlation with clinical findings is needed. us Nura Lebron MD NEUROLOGY ORDERABLES Final Result * POCT glucose (12/17/2024 12:18 PM CDT) Glucose, POC 115 70 - 199 mg/dL Blood 12/17/2024 12:1 8 PM CDT 12/17/2024 12:18 PM CDT Sole Bishop MD LAB POCT ORDERABLES - DEV ICE Final Result Performing Organization Address [facility]/ZIP Co de Phone Number [address] [place] [address] * POCT glucose (12/17/2024 8:31 AM CDT) [facility] Glucose, POC 103 70 - 199 mg/dL Blood 12/17/2024 8:31 AM CDT 12/17/2024 8:31 AM CDT Sole Bishop MD LAB POCT ORDERABLES - DEV ICE Final Result Performing Organization Address [facility] Co de Phone Number [address] [place] [address] * (ABNORMAL) Troponin T high-sensitivity (12/17/2024 4:17 AM CDT) Trop T hs 33(H) <=22 ng/L Comment: Interpretive Data For further hscTnT resources including the diagnostic algorithm and an aid in interpretation, copy and paste this link: [email or web address] Current Interpretive Data last revised 2020. Blood 12/17/2024 4:17 AM CDT 12/17/2024 4:23 AM CDT Ed Null MD LAB BLOOD ORDERABLES Final Resul t Performing Organization Address [facility] Co de Phone Number [facility] [address] [place] [address] * eGFR (12/17/2024 4:17 AM CDT) eGFR >90 >=60 mL/min/1. 73 m2 Comment: Interpretive Data Reference Interval Normal >/= 90 mL/min/1.73m2 Mildly decreased* 60 - 89 mL/min/1.73m2 Mildly to moderately decreased 45 - 59 mL/min/1.73m2 Moderately to severely decreased 30 - 44 mL/min/1.73m2 Severely decreased 15 - 29 mL/min/1.73m2 Kidney Failure < 15 mL/min/1.73m2 *Relative to young adult level Estimated glomerular filtration rate is determined by the 2020 CKD-EPI equation recommended by the National Kidney Foundation (A Unifying Approach to GFR Estimation: Recommendations of the NKF-ASK Task Force on Reassessing the Inclusion of Race in Diagnosing Kidney Disease, JASN 2020). The CKD-EPI equation should not be used for patients with unstable renal function and has not been validated in children and those over 70. Current interpretive data was last reviewed 2020. Blood 12/17/2024 4:17 AM CDT 12/17/2024 4:23 AM CDT Ed Null MD LAB BLOOD ORDERABLES Final Resul t Performing Organization Address [facility] Co de Phone Number [facility] [address] Department [place] [address] * Differential, auto (12/17/2024 4:17 AM CDT) Neutrophil abs 4.66 1.50 - 6.50 K/cumm Imm gran abs 0.02 0.00 - 0.10 K/cumm [facility] Lymphocyte abs 2.59 0.80 - 3.30 K/cumm [facility] Monocyte abs 0.58 0.20 - 0.80 K/cumm [facility] Eosinophil abs 0.10 0.00 - 0.50 K/cumm [facility] Basophil abs 0.03 0.00 - 0.10 K/cumm [facility] Neutrophil pct 58.2 % [facility] Comment: Interpretive Data Percent cell count reference ranges are not reported, since discordance with absolute values may lead to misinterpretation of CBC data. Current Interpretive Data was last revised on 2017. Imm gran pct 0.3 % [facility] Comment: Interpretive Data Percent cell count reference ranges are not reported, since discordance with absolute values may lead to misinterpretation of CBC data. Current Interpretive Data was last revised on 2017. Lymphocyte pct 32.5 % [facility] Comment: Interpretive Data Percent cell count reference ranges are not reported, since discordance with absolute values may lead to misinterpretation of CBC data. Current Interpretive Data was last revised on 2017. Monocyte pct 7.3 % [facility] Comment: Interpretive Data Percent cell count reference ranges are not reported, since discordance with absolute values may lead to misinterpretation of CBC data. Current Interpretive Data was last revised on 2017. Eosinophil pct 1.3 % [facility] Comment: Interpretive Data Percent cell count reference ranges are not reported, since discordance with absolute values may lead to misinterpretation of CBC data. Current Interpretive Data was last revised on 2017. Basophil pct 0.4 % [facility] Comment: Interpretive Data Percent cell count reference ranges are not reported, since discordance with absolute values may lead to misinterpretation of CBC data. Current Interpretive Data was last revised on 2017. Blood 12/17/2024 4:17 AM CDT 12/17/2024 4:23 AM CDT us Ed Null MD LAB BLOOD ORDERABLES Final Resul t [facility] [address] [facility] Department [place] [address] * CBC with auto differential (12/17/2024 4:17 AM CDT) WBC 7.98 3.80 - 9.90 K/cumm Hgb 13.8 13.0 - 17.5 g/dL [facility] Hct 42.5 38.9 - 50.3 % [facility] Plt 214 150 - 400 K/cumm [facility] MPV 9.4 9.1 - 12.3 fL [facility] RBC 4.45 4.30 - 5.80 M/cumm [facility] MCV 95.5 81.3 - 96.4 fL [facility] MCH 31.0 27.1 - 33.3 pg [facility] MCHC 32.5 32.3 - 35.7 g/dL [facility] RDW CV 13.2 11.1 - 14.9 % [facility] RDW SD 46.8 35.7 - 48.1 fL [facility] NRBC abs 0.00 0.00 - 0.01 K/cumm [facility] Blood 12/17/2024 4:17 AM CDT 12/17/2024 4:23 AM CDT us Ed Null MD LAB BLOOD ORDERABLES Final Resul t [facility] [address] [facility] Department [place] [address] * Hepatitis panel, acute Blood (12/17/2024 4:17 AM CDT) Hep A IgM Nonreactive Nonreactive Comment: Interpretive Data: If Hep A IgM Ab is reported as Equivocal, a new sample should be drawn in two weeks for testing. Current interpretive data was last revised on 19. Hep B core IgM Nonreactive Nonreactive [facility] Comment: Interpretive Data If HepB Core IgM Ab is reported as Equivocal, a new sample should be drawn in two weeks for testing. Current interpretive data was last revised on 19. Hep C Ab Nonreactive Nonreactive [facility] Comment: Antibodies to HCV not detected. Does NOT exclude the possibility of recent exposure to HCV. Current interpretive data was last revised on 21 Interpretive Data Nonreactive: Antibodies to HCV not detected. Does NOT exclude the possibility of recent exposure to HCV. Equivocal: Equivocal for HCV antibodies. Supplemental molecular testing will be automatically performed to determine infection status in accordance with current CDC screening recommendations. Reactive: Positive for HCV antibodies. This may represent current or past HCV infection. Supplemental molecular testing will be automatically performed to determine current infection status in accordance with current CDC screening recommendations. Interpretive data was last revised on 2019. HepBsAg Nonreactive Nonreactive [facility] Blood 12/17/2024 4:17 AM CDT 12/17/2024 4:23 AM CDT Tesfaye Holliday MD LAB MICROBIOLOGY - GENERAL ORDE [facility] Final Result Performing Organization Address [facility]/ZIP Co de Phone Number [place] [phone] [facility] Department [place] [address] * (ABNORMAL) Basic metabolic panel (12/17/2024 4:17 AM CDT) Sodium 136 135 - 145 mmol/L Potassium, pl 3.7 3.3 - 4.9 mmol/L [facility] Chloride 105 97 - 110 mmol/L [facility] CO2 21(L) 22 - 32 mmol/L [facility] Anion gap 10 2 - 15 mmol/L [facility] BUN 10 6 - 25 mg/dL [facility] Creatinine 0.75(L) 0.80 - 1.30 mg/dL [facility] Glucose 127 70 - 199 mg/dL [facility] Comment: Interpretive Data Fasting glucose >/= 126 mg/dl is diagnostic for diabetes. Fasting is defined as no caloric intake for at least 8 hours. Fasting glucose between 100 mg/dl to 125 mg/dl is diagnostic of prediabetes. In a patient with classic symptoms of hyperglycemia or hyperglycemic crisis, a random glucose >/= 200 mg/dl is diagnostic for diabetes. In the absence of unequivocal hyperglycemia, results should be confirmed by repeat testing. The classification and Diagnosis of Diabetes Diabetes Care 202; 46: S19-S40. Current interpretive data was last revised 2022. Calcium 8.5 8.5 - 10.3 mg/dL [facility] Blood 12/17/2024 4:17 AM CDT 12/17/2024 4:23 AM CDT us Ed Null MD LAB BLOOD ORDERABLES Final Resul t Performing Organization Address City/[facility]/ZIP Co de Phone Number [facility] [address] [facility] Department [place] [address] * Drugs of Abuse Screen, Urine without Confirmation (12/16/2024 9:05 PM CDT) [facility] Amphetamine, ur Not Detected CutOff 500ng/mL Comment: Interpretive Data - Amphetamines: Samples containing greater than 500 ng/mL d-methamphetamine or other cross-reacting amphetamine compounds are reported as positive. Amphetamine immunoassays are subject to significant false positive rates due to cross-reactivity of non-amphetamine drugs. Confirmatory testing required for definitive results. Current Interpretive Data was last reviewed 2022. Barbiturates, ur Not Detected CutOff 200ng/mL [facility] Comment: Interpretive Data - Barbiturates: Samples containing greater than 200 ng/mL secobarbital or other cross-reacting barbiturate compounds are reported as positive. False positive and false negative results are possible. Confirmatory testing required for definitive results. Current Interpretive Data was last reviewed 2022. Benzodiazepines, ur Not Detected CutOff 100ng/mL [facility] Comment: Interpretive Data - Benzodiazepines: Samples containing greater than 100 ng/mL nordiazepam or other cross-reacting compounds are reported as positive. False positive and false negative results are possible. Confirmatory testing required for definitive results. Current Interpretive Data was last reviewed 2022. Cannabinoids, ur Not Detected CutOff 50 ng/mL [facility] Comment: Interpretive Data - Cannabinoids: Samples containing greater than 50 ng/mL delta-9 THC -COOH or other cross- reacting compounds are reported as positive. False positive and false negative results are possible. Confirmatory testing required for definitive results. Current Interpretive Data was last reviewed 2022. Cocaine, ur Not Detected CutOff 150ng/mL [facility] Comment: Interpretive Data - Cocaine: Samples containing greater than 150 ng/mL benzoylecgonine or other cross- reacting compounds are reported as positive. False positive and false negative results are possible. Confirmatory testing required for definitive results. Current Interpretive Data was last reviewed 2022. Fentanyl, Ur Not Detected CutOff 5 ng/mL [facility] Comment: Interpretive Data - Fentanyl: Samples containing greater than 5 ng/mL norfentanyl, fentanyl, or other cross-reacting fentanyl compounds are reported as positive. False positive and false negative results are possible. Confirmatory testing required for definitive results. Current Interpretive Data was last reviewed 2023. Methadone, ur Not Detected CutOff 300ng/mL [facility] Comment: Interpretive Data - Methadone: Samples containing greater than 300 ng/mL d,l-methadone or other cross-reacting compounds are reported as positive. False positive and false negative results are possible. Confirmatory testing required for definitive results. Current Interpretive Data was last reviewed 2022. Opiates, ur Not Detected CutOff 300ng/mL [facility] Comment: Interpretive Data - Opiates: Samples containing greater than 300 ng/mL morphine or other cross-reacting compounds are reported as positive. False positive and false negative results are possible. Confirmatory testing required for definitive results. Current Interpretive Data was last reviewed 2022. Oxycodone, ur Not Detected CutOff 100ng/mL [facility] Comment: Interpretive Data - Oxycodone: Samples containing greater than 100 ng/mL oxycodone or other cross-reacting compounds are reported as positive. False positive and false negative results are possible. Confirmatory testing required for definitive results. Current Interpretive Data was last reviewed 2022. Phencyclidine, ur Not Detected CutOff 25 ng/mL [facility] Comment: Interpretive Data - Phencyclidine: Samples containing greater than 25 ng/mL phencyclidine or other cross-reacting compounds are reported as positive. False positive and false negative results are possible. Confirmatory testing required for definitive results. Current Interpretive Data was last reviewed 2022. Urine Creatinine 79 mg/dL [facility] Comment: Interpretive Data Urine Creatinine: < 10 mg/dL is extremely dilute = or > 10 but < 20 mg/dL is dilute = or > 20 mg/dL is normal Current Interpretive Data was last revised on 2017. Urine 12/16/2024 9:05 PM CDT 12/16/2024 9:09 PM CDT Narrative [facility] - 12/16/2024 9:35 PM CDT Drug of Abuse screening is performed by immunoassay for medical purposes only. This is not to be used for Pain Management purposes. Ed Null MD LAB URINE ORDERABLES Final Resul t [address] [address] * POCT glucose (12/16/2024 8:33 PM CDT) Glucose, POC 148 70 - 199 mg/dL Blood 12/16/2024 8:33 PM CDT 12/16/2024 8:33 PM CDT us Ed Null MD LAB POCT ORDERABLES - DEVICE Fin al Result Performing Organization Address [facility] Co de Phone Number [address] [address] * Lactate (12/16/2024 5:43 PM CDT) Pathologist [facility] Lactate 1.2 0.7 - 2.0 mmol/L Blood 12/16/2024 5:43 PM CDT 12/16/2024 5:48 PM CDT us Ed Null MD LAB BLOOD ORDERABLES Final Resul t Performing Organization Address [facility] Co de Phone Number [address] [address] * (ABNORMAL) Prolactin (12/16/2024 5:43 PM CDT) Prolactin 29.4(H) 4.0 - 15.2 ng/mL Comment:Testing performed by : [facility], [address] [facility] [place]., [address] Blood 12/16/2024 5:43 PM CDT 12/16/2024 9:15 PM CDT us Ed Null MD LAB BLOOD ORDERABLES Final Resul t Performing Organization Address [facility] Co de Phone Number [address] [place] [address] * eGFR (12/16/2024 5:42 PM CDT) Pathologist [facility] eGFR >90 >=60 mL/min/1. 73 m2 Comment: Interpretive Data Reference Interval Normal >/= 90 mL/min/1.73m2 Mildly decreased* 60 - 89 mL/min/1.73m2 Mildly to moderately decreased 45 - 59 mL/min/1.73m2 Moderately to severely decreased 30 - 44 mL/min/1.73m2 Severely decreased 15 - 29 mL/min/1.73m2 Kidney Failure < 15 mL/min/1.73m2 *Relative to young adult level Estimated glomerular filtration rate is determined by the 2020 CKD-EPI equation recommended by the National Kidney Foundation (A Unifying Approach to GFR Estimation: Recommendations of the NKF-ASK Task Force on Reassessing the Inclusion of Race in Diagnosing Kidney Disease, JASN 2020). The CKD-EPI equation should not be used for patients with unstable renal function and has not been validated in children and those over 70. Current interpretive data was last reviewed 2020. Blood 12/16/2024 5:42 PM CDT 12/16/2024 6:15 PM CDT us Ed Null MD LAB BLOOD ORDERABLES Final Resul t [facility] [address] [facility] Department [place] [address] * (ABNORMAL) Comprehensive metabolic panel, serum (12/16/2024 5:42 PM CDT) [facility] Sodium 137 135 - 145 mmol/L Potassium, sr 4.2 3.6 - 5.2 mmol/L [facility] Comment:Hemolyzed; Potassium value may be falsely elevated by as much as 1.0 mmol/L. Suggest redraw and reanalysis. Chloride 105 97 - 110 mmol/L [facility] CO2 23 22 - 32 mmol/L [facility] Anion gap 9 2 - 15 mmol/L [facility] BUN 11 6 - 25 mg/dL [facility] Creatinine 0.70(L) 0.80 - 1.30 mg/dL [facility] Glucose 157 70 - 199 mg/dL [facility] Comment: Interpretive Data Fasting glucose >/= 126 mg/dl is diagnostic for diabetes. Fasting is defined as no caloric intake for at least 8 hours. Fasting glucose between 100 mg/dl to 125 mg/dl is diagnostic of prediabetes. In a patient with classic symptoms of hyperglycemia or hyperglycemic crisis, a random glucose >/= 200 mg/dl is diagnostic for diabetes. In the absence of unequivocal hyperglycemia, results should be confirmed by repeat testing. The classification and Diagnosis of Diabetes Diabetes Care 2021; 46: S19-S40. Current interpretive data was last revised 2022. Calcium 8.2(L) 8.5 - 10.3 mg/dL [facility] Bilirubin, total 0.5 0.1 - 1.2 mg/dL [facility] Protein, sr 5.7(L) 6.2 - 8.2 g/dL [facility] Albumin 3.5 3.5 - 5.0 g/dL [facility] Alk phos 52 40 - 130 Units/L [facility] ALT 61(H) 7 - 55 Units/L [facility] AST 36 10 - 50 Units/L [facility] Comment:Hemolyzed; result ma y be falsely elevated Blood 12/16/2024 5:42 PM CDT 12/16/2024 6:15 PM CDT Ed Null MD LAB BLOOD ORDERABLES Final Resul t [facility] [address] [facility] Department [place] [address] * ECG 12 lead (12/16/2024 5:36 PM CDT) Ventricular Rate EKG/Min 67 BPM [facility] Atrial Rate 67 BPM [facility] CA-Interval (MSEC) 232 ms [facility] QRS-Interval (MSEC) 92 ms [facility] QT-Interval (MSEC) 436 ms [facility] QTc 460 ms [facility] P [place] 33 degrees [facility] R [place] -35 degrees [facility] T [place] 30 degrees [facility] Diagnosis Sinus rhythm with 1st degree A-V block Left axis deviation Incomplete right bundle branch block Nonspecific T wave abnormality Prolonged QT Abnormal ECG When compared with ECG of 16-DEC-2024 12:03, CA interval has increased Confirmed by BASIM LERMA M.D. ([id number]) on 12/17/2024 7:59:55 AM [facility] 12/16/2024 5:36 PM CDT 12/17/2024 7:59 AM CDT us Ed Null MD ECG ORDERABLES Final Result [facility] * CT Abdomen Pelvis W Contrast (12/16/2024 1:02 PM CDT) Anatomical Region Laterality Modality Body N/A Computed Tomogra phy 12/16/2024 1:13 PM CDT Narrative 12/16/2024 1:28 PM CDT EXAM DESCRIPTION: CT ABDOMEN PELVIS W CONTRAST REASON FOR STUDY: Abdominal pain, acute, nonlocalized BIB EMS from home with ongoing n\v for 1 week. Seen here in ED and admitted recently for this- dx with enteritis- DC'd on . Stated his symptoms did not improve. Also reports ongoing hiccups x 1 week. Hx: cva, diabetes, htn, vasectomy, hernia repair TECHNIQUE: CT scan of the abdomen and pelvis performed with intravenous and without oral contrast using helical scanning technique with dynamic intravenous contrast injection. Reconstructed coronal and sagittal MPR images reviewed. All images stored on PACS. Automated exposure control was used as a dose optimization technique for this examination. CONTRAST TYPE/DOSE: 92mL of IOVERSOL 350 MG IODINE/ML INTRAVENOUS SYRINGE injected via intravenous COMPARISON: No comparison. FINDINGS: LOWER CHEST: No significant pulmonary abnormalities. No effusion. LIVER: Normal size. No identified cystic or solid masses. GALLBLADDER: No gallstones. No wall thickening or pericholecystic fluid. BILE DUCTS: No intrahepatic or extrahepatic ductal dilatation. SPLEEN: Normal size. No focal lesions. PANCREAS: No identified cystic or solid masses. No significant calcifications. No adjacent inflammation or peripancreatic fluid collections. Pancreatic duct not dilated. ADRENALS: Normal. KIDNEYS/URINARY TRACT: No identified significant cystic or solid masses. No visualized stones. No hydronephrosis or hydroureter. Symmetric enhancement. Urinary bladder is unremarkable. GI: No dilated bowel loops. No bowel obstruction. There is slight stranding of mesenteric fat around a tiny diverticula of the descending colon best seen on series 4 coronal image 45. Mild diffuse mucosal thickening suggested of the sigmoid colon. Findings suggest possible mild diverticulosis and or colitis. Bowel otherwise is unremarkable.. Normal appendix. PERITONEUM: No ascites or free air. Postoperative changes anterior abdominal wall suggesting prior hernia repair. RETROPERITONEUM: No mass or adenopathy. REPRODUCTIVE: No significant abnormality. VASCULATURE: No abdominal aortic aneurysm. MUSCULOSKELETAL: No significant abnormality. OTHER: No other abnormality. IMPRESSION: Findings possibly representing mild diverticulitis and or colitis of descending colon and sigmoid region. No bowel obstruction or other acute intra-process. Normal appendix. No hydronephrosis or ureteral abnormality. Postoperative changes along the anterior abdominal wall. Please correlate with past history. THIS IS AN ELECTRONICALLY VERIFIED FINAL REPORT 12/16/2024 1:28 PM - Electronically signed by Dion Gutierres M.D. T: Report ID: [id number] Reading Location: [id number] Procedure Note Melinda Gutierres MD - 12/16/2024 EXAM DESCRIPTION: CT ABDOMEN PELVIS W CONTRAST REASON FOR STUDY: Abdominal pain, acute, nonlocalized BIB EMS from home with ongoing n\v for 1 week. Seen here in ED andadmitted recently for this- dx with enteritis- DC'd on . Stated his symptomsdid not improve. Also reports ongoing hiccups x 1 week. Hx: cva, diabetes, htn, vasectomy, hernia repair TECHNIQUE: CT scan of the abdomen and pelvis performed with intravenousand without oral contrast using helical scanning technique with dynamic intravenous contrast injection. Reconstructed coronal and sagittal MPRimages reviewed. All images stored on PACS. Automated exposure control was usedas a dose optimization technique for this examination. CONTRAST TYPE/DOSE: 92mL of IOVERSOL 350 MG IODINE/ML INTRAVENOUSSYRINGE injected via intravenous COMPARISON: No comparison. FINDINGS: LOWER CHEST: No significant pulmonary abnormalities. Noeffusion. LIVER: Normal size. No identified cystic or solid masses. GALLBLADDER: No gallstones. No wall thickening or pericholecysticfluid. BILE DUCTS: No intrahepatic or extrahepatic ductal dilatation. SPLEEN: Normal size. No focal lesions. PANCREAS: No identified cystic or solid masses. No significant calcifications. No adjacent inflammation or peripancreatic fluidcollections. Pancreatic duct not dilated. ADRENALS: Normal. KIDNEYS/URINARY TRACT: No identified significant cystic or solid masses.No visualized stones. No hydronephrosis or hydroureter. Symmetricenhancement. Urinary bladder is unremarkable. GI: No dilated bowel loops. No bowel obstruction. There is slightstranding of mesenteric fat around a tiny diverticula of the descending colon bestseen on series 4 coronal image 45. Mild diffuse mucosal thickening suggestedof the sigmoid colon. Findings suggest possible mild diverticulosis and or colitis. Bowel otherwise is unremarkable.. Normal appendix. PERITONEUM: No ascites or free air. Postoperative changes anterior abdominal wall suggesting prior hernia repair. RETROPERITONEUM: No mass or adenopathy. REPRODUCTIVE: No significant abnormality. VASCULATURE: No abdominal aortic aneurysm. MUSCULOSKELETAL: No significant abnormality. OTHER: No other abnormality. IMPRESSION: Findings possibly representing mild diverticulitis and orcolitis of descending colon and sigmoid region. No bowel obstruction or otheracute intra-process. Normal appendix. No hydronephrosis or ureteral abnormality. Postoperative changes along the anterior abdominal wall. Please correlate with past history. THIS IS AN ELECTRONICALLY VERIFIED FINAL REPORT 12/16/2024 1:28 PM - Electronically signed by Dion Gutierres M.D. T: Report ID: [id number] Reading Location: [place] [address] Frank Johnson MD IMG CT PROCEDURES Final Result * CT Head WO Contrast (12/16/2024 1:02 PM CDT) Anatomical Region Laterality Modality Head and Neck N/A Computed Tomogra phy 12/16/2024 1:04 PM CDT Narrative 12/16/2024 1:13 PM CDT EXAM DESCRIPTION: CT HEAD WO CONTRAST REASON FOR STUDY: Syncope/presyncope, cerebrovascular cause suspected BIB EMS from home with ongoing n\v for 1 week. Seen here in ED and admitted recently for this- dx with enteritis- DC'd on . Stated his symptoms did not improve. Also reports ongoing hiccups x 1 week. Hx: cva, diabetes, htn, vasectomy, hernia repair TECHNIQUE: Axial images acquired through the brain without intravenous contrast. Images stored on PACS. Automated exposure control was used as a dose optimization technique for this examination. COMPARISON: No comparison. FINDINGS: BRAIN: No acute hemorrhage, edema or mass effect. No recent infarct. Moderate focal encephalomalacia in the periphery of the inferior left cerebellum in keeping with an old infarct. Patchy low density of white matter in periventricular regions, particularly evident adjacent to the atria of the left lateral ventricle. There is faint low density in the left inferior basal ganglia region which is nonspecific (axial series 3: Image 31) EXTRA-AXIAL SPACES: No fluid collections. No masses. CALVARIUM: No fracture. SINUSES/MASTOIDS: No fluid or mucosal thickening. Slight offset of the outer table of the left frontal sinus could reflect an old healed injury or could represent congenital variation. It does not have acute features. ORBITS: No significant abnormality. OTHER: No other significant abnormality. IMPRESSION: 1. No acute intracranial findings. 2. Old left cerebellar infarct. 3. Patchy low density of white matter in periventricular regions, particularly adjacent to the atria of the left lateral ventricle. These findings are nonspecific but may be seen with chronic microvascular ischemic change. MRI characterization may be beneficial as indicated clinically. 4. Slight offset of the outer table of the left frontal sinus which could reflect an old healed injury or could represent congenital variation. It does not have acute features. THIS IS AN ELECTRONICALLY VERIFIED FINAL REPORT 12/16/2024 1:13 PM - Electronically signed by Dion Gutierres M.D. T: Report ID: [id number] Reading Location: [id number] Procedure Note Melinda Gutierres MD - 12/16/2024 EXAM DESCRIPTION: CT HEAD WO CONTRAST REASON FOR STUDY: Syncope/presyncope, cerebrovascular cause suspected BIB EMS from home with ongoing n\v for 1 week. Seen here in ED andadmitted recently for this- dx with enteritis- DC'd on . Stated his symptomsdid not improve. Also reports ongoing hiccups x 1 week. Hx: cva, diabetes, htn, vasectomy, hernia repair TECHNIQUE: Axial images acquired through the brain without intravenous contrast. Images stored on PACS. Automated exposure control was used asa dose optimization technique for this examination. COMPARISON: No comparison. FINDINGS: BRAIN: No acute hemorrhage, edema or mass effect. No recent infarct. Moderate focal encephalomalacia in the periphery of the inferior left cerebellum in keeping with an old infarct. Patchy low density ofwhite matter in periventricular regions, particularly evident adjacent to theatria of the left lateral ventricle. There is faint low density in the left inferior basal ganglia region which is nonspecific (axial series 3: Image31) EXTRA-AXIAL SPACES: No fluid collections. No masses. CALVARIUM: No fracture. SINUSES/MASTOIDS: No fluid or mucosal thickening. Slight offset of the outer table of the left frontal sinus could reflect an old healed injuryor could represent congenital variation. It does not have acute features. ORBITS: No significant abnormality. OTHER: No other significant abnormality. IMPRESSION: 1. No acute intracranial findings. 2. Old left cerebellar infarct. 3. Patchy low density of white matter in periventricular regions, particularly adjacent to the atria of the left lateral ventricle. These findings are nonspecific but may be seen with chronic microvascularischemic change. MRI characterization may be beneficial as indicated clinically. 4. Slight offset of the outer table of the left frontal sinus whichcould reflect an old healed injury or could represent congenital variation. Itdoes not have acute features. THIS IS AN ELECTRONICALLY VERIFIED FINAL REPORT 12/16/2024 1:13 PM - Electronically signed by Dion Gutierres M.D. T: Report ID: [id number] Reading Location: [id number] us Frank Johnson MD IMG CT PROCEDURES Final Result * ECG 12 lead (12/16/2024 12:03 PM CDT) Ventricular Rate EKG/Min 68 BPM [facility] Atrial Rate 68 BPM [facility] CA-Interval (MSEC) 168 ms [facility] QRS-Interval (MSEC) 88 ms [facility] QT-Interval (MSEC) 412 ms [facility] QTc 438 ms [facility] P [place] 25 degrees [facility] R [place] -26 degrees [facility] T [place] 29 degrees [facility] Diagnosis Normal sinus rhythm Nonspecific T wave abnormality When compared with ECG of 10-DEC-2024 15:37, No significant change was found Confirmed by SULTAN SHAH M.D. ([id number]) on 12/16/2024 8:52:42 PM [facility] 12/16/2024 12:0 3 PM CDT 12/16/2024 8:52 PM CDT us Frank Johnson MD ECG ORDERABLES Final Result [facility] * eGFR (12/16/2024 10:54 AM CDT) eGFR >90 >=60 mL/min/1. 73 m2 Comment: Interpretive Data Reference Interval Normal >/= 90 mL/min/1.73m2 Mildly decreased* 60 - 89 mL/min/1.73m2 Mildly to moderately decreased 45 - 59 mL/min/1.73m2 Moderately to severely decreased 30 - 44 mL/min/1.73m2 Severely decreased 15 - 29 mL/min/1.73m2 Kidney Failure < 15 mL/min/1.73m2 *Relative to young adult level Estimated glomerular filtration rate is determined by the 2020 CKD-EPI equation recommended by the National Kidney Foundation (A Unifying Approach to GFR Estimation: Recommendations of the NKF-ASK Task Force on Reassessing the Inclusion of Race in Diagnosing Kidney Disease, JASN 2020). The CKD-EPI equation should not be used for patients with unstable renal function and has not been validated in children and those over 70. Current interpretive data was last reviewed 2020. Blood 12/16/2024 10:5 4 AM CDT 12/16/2024 10:58 AM CDT us Frank Johnson MD LAB BLOOD ORDERABLES Final Resul t [facility] [address] [facility] Department [place] [address] * Differential, auto (12/16/2024 10:54 AM CDT) Pathologist [facility] Neutrophil abs 4.76 1.50 - 6.50 K/cumm Imm gran abs 0.02 0.00 - 0.10 K/cumm [facility] Lymphocyte abs 3.30 0.80 - 3.30 K/cumm [facility] Monocyte abs 0.63 0.20 - 0.80 K/cumm [facility] Eosinophil abs 0.11 0.00 - 0.50 K/cumm [facility] Basophil abs 0.04 0.00 - 0.10 K/cumm [facility] Neutrophil pct 53.8 % [facility] Comment: Interpretive Data Percent cell count reference ranges are not reported, since discordance with absolute values may lead to misinterpretation of CBC data. Current Interpretive Data was last revised on 2017. Imm gran pct 0.2 % [facility] Comment: Interpretive Data Percent cell count reference ranges are not reported, since discordance with absolute values may lead to misinterpretation of CBC data. Current Interpretive Data was last revised on 2017. Lymphocyte pct 37.2 % [facility] Comment: Interpretive Data Percent cell count reference ranges are not reported, since discordance with absolute values may lead to misinterpretation of CBC data. Current Interpretive Data was last revised on 2017. Monocyte pct 7.1 % [facility] Comment: Interpretive Data Percent cell count reference ranges are not reported, since discordance with absolute values may lead to misinterpretation of CBC data. Current Interpretive Data was last revised on 2017. Eosinophil pct 1.2 % [facility] Comment: Interpretive Data Percent cell count reference ranges are not reported, since discordance with absolute values may lead to misinterpretation of CBC data. Current Interpretive Data was last revised on 2017. Basophil pct 0.5 % [facility] Comment: Interpretive Data Percent cell count reference ranges are not reported, since discordance with absolute values may lead to misinterpretation of CBC data. Current Interpretive Data was last revised on 2017. Blood 12/16/2024 10:5 4 AM CDT 12/16/2024 10:58 AM CDT us Frank Johnson MD LAB BLOOD ORDERABLES Final Resul t Performing Organization Address City/State/[facility] Co de Phone Number [place] [address] [facility] [employer] [place] [address] * Pro B-type natriuretic peptide (12/16/2024 10:54 AM CDT) NT-proBNP <36 <=300 pg/mL Comment: Interpretive Comments: A. Dyspnea in Acute Care Setting All Ages: < 300 pg/ml, acute heart failure unlikely. < 50 yrs: 300 - 450 pg/ml, further investigation warranted. > 450 pg/ml, acute heart failure likely. 50 - 74 yrs: 300 - 900 pg/ml, further investigation warranted. > 900 pg/ml, acute heart failure likely . > or = 75 yrs: 450 - 1800 pg/ml, further investigation warranted. > 1800 pg/ml, acute heart failure likely. B. Non-acute Setting < 75 yrs < 125 pg/ml, rules out heart failure. > or = 125 pg/ml, further investigation warranted. > or = 75 yrs < 450 pg/ml, rules out heart failure. > or = 450 pg/ml, further investigation warranted. - Knowledge of each individual patient's NT-proBNP range may be more useful than using similar cut-points for every patient. Please note that marked elevations in NT-proBNP levels may be observed in state other than Left Ventricular Congestive Failure, including: acute coronary syndromes, right heart strain/failure (including pulmonary embolism and cor pulmonale), critical illness, renal failure, as well as advanced age. - References: 1. Alycia JL et.al. Eur Heart J. 2006:27:330-337. 2. Jai RW, Kwadwo BURLESON. J. AM Penny Cardiol: Cardiovasc Imag. 2009;2: 216- 225. Interpretive Data Last Revised Date: 2017. Blood 12/16/2024 10:5 4 AM CDT 12/16/2024 10:58 AM CDT us Ed Null MD LAB BLOOD ORDERABLES Final Resul t Performing Organization Address [facility] Co de Phone Number [place] [address] [facility] [employer] [place] [address] * CBC with auto differential (12/16/2024 10:54 AM CDT) [facility] WBC 8.86 3.80 - 9.90 K/cumm Hgb 14.8 13.0 - 17.5 g/dL [facility] Hct 41.7 38.9 - 50.3 % [facility] Plt 259 150 - 400 K/cumm [facility] MPV 9.3 9.1 - 12.3 fL [facility] RBC 4.72 4.30 - 5.80 M/cumm [facility] MCV 88.3 81.3 - 96.4 fL [facility] MCH 31.4 27.1 - 33.3 pg [facility] MCHC 35.5 32.3 - 35.7 g/dL [facility] RDW CV 13.2 11.1 - 14.9 % [facility] RDW SD 42.8 35.7 - 48.1 fL [facility] NRBC abs 0.00 0.00 - 0.01 K/cumm [facility] [facility] Blood Venous blood specimen / Unknown 12/16/2024 10:54 AM CDT 12/16/2024 10:58 AM CDT us Frank Johnson MD LAB BLOOD ORDERABLES Final Resul t Performing Organization Address [facility] de Phone Number [address] [employer] [place] [address] * Magnesium (12/16/2024 10:54 AM CDT) [facility] Magnesium 1.6 1.4 - 2.5 mg/dL Blood 12/16/2024 10:5 4 AM CDT 12/16/2024 10:58 AM CDT us Frank Johnson MD LAB BLOOD ORDERABLES Final Resul t Performing Organization Address [facility] de Phone Number [address] [place] [address] * Lipase (12/16/2024 10:54 AM CDT) Lipase 23 10 - 99 Units/L Blood Venous blood specimen / Unknown 12/16/2024 10:54 AM CDT 12/16/2024 10:58 AM CDT Frank Johnson MD LAB BLOOD ORDERABLES Final Resul t Performing Organization Address [facility] de Phone Number [address] [address] * Ethanol (12/16/2024 10:54 AM CDT) [facility] Ethanol <10 <=10 mg/dL Comment: Interpretive Data Legal limit of intoxication > or = 80 mg/dL Levels > or = 400 mg/dL are potentially TOXIC. Current interpretive data was last revised on 2018. Blood 12/16/2024 10:5 4 AM CDT 12/16/2024 10:58 AM CDT Ed Null MD LAB BLOOD ORDERABLES Final Resul t Performing Organization Address [facility] de Phone Number [address] [address] * (ABNORMAL) Comprehensive metabolic panel (12/16/2024 10:54 AM CDT) [facility] Sodium 134(L) 135 - 145 mmol/L Potassium, pl 3.6 3.3 - 4.9 mmol/L [facility] Chloride 99 97 - 110 mmol/L [facility] CO2 25 22 - 32 mmol/L [facility] Anion gap 10 2 - 15 mmol/L [facility] BUN 14 6 - 25 mg/dL [facility] Creatinine 0.76(L) 0.80 - 1.30 mg/dL [facility] Glucose 206(H) 70 - 199 mg/dL [facility] Comment: Interpretive Data Fasting glucose >/= 126 mg/dl is diagnostic for diabetes. Fasting is defined as no caloric intake for at least 8 hours. Fasting glucose between 100 mg/dl to 125 mg/dl is diagnostic of prediabetes. In a patient with classic symptoms of hyperglycemia or hyperglycemic crisis, a random glucose >/= 200 mg/dl is diagnostic for diabetes. In the absence of unequivocal hyperglycemia, results should be confirmed by repeat testing. The classification and Diagnosis of Diabetes Diabetes Care 2021; 46: S19-S40. Current interpretive data was last revised 2022. Calcium 9.2 8.5 - 10.3 mg/dL [facility] Bilirubin, total 0.6 0.1 - 1.2 mg/dL [facility] Protein, pl 6.3(L) 6.5 - 8.5 g/dL [facility] Albumin 4.1 3.5 - 5.0 g/dL [facility] Alk phos 58 40 - 130 Units/L [facility] ALT 70(H) 7 - 55 Units/L [facility] AST 32 10 - 50 Units/L [facility] Blood 12/16/2024 10:5 4 AM CDT 12/16/2024 10:58 AM CDT Frank Johnson MD LAB BLOOD ORDERABLES Final Resul t Performing Organization Address City/[facility] Co de Phone Number [address] [employer] [place] [address] * POCT glucose (12/11/2024 12:37 PM CDT) Glucose, POC 139 70 - 199 mg/dL Blood 12/11/2024 12:3 7 PM CDT 12/11/2024 12:37 PM CDT Danna Muniz MD LAB POCT ORDERABLES - KENROY CE Final Result Performing Organization Address City/[facility] Co de Phone Number [address] [place] [employer] [place] [address] * POCT glucose (12/11/2024 8:21 AM CDT) Glucose, POC 109 70 - 199 mg/dL Blood 12/11/2024 8:21 AM CDT 12/11/2024 8:21 AM CDT Danna Muniz MD LAB POCT ORDERABLES - KENROY CE Final Result Performing Organization Address City/[facility]/ZIP Co de Phone Number [place] [address] [address] * eGFR (12/11/2024 4:21 AM CDT) Pathologist [facility] eGFR >90 >=60 mL/min/1. 73 m2 Comment: Interpretive Data Reference Interval Normal >/= 90 mL/min/1.73m2 Mildly decreased* 60 - 89 mL/min/1.73m2 Mildly to moderately decreased 45 - 59 mL/min/1.73m2 Moderately to severely decreased 30 - 44 mL/min/1.73m2 Severely decreased 15 - 29 mL/min/1.73m2 Kidney Failure < 15 mL/min/1.73m2 *Relative to young adult level Estimated glomerular filtration rate is determined by the 2020 CKD-EPI equation recommended by the National Kidney Foundation (A Unifying Approach to GFR Estimation: Recommendations of the NKF-ASK Task Force on Reassessing the Inclusion of Race in Diagnosing Kidney Disease, JASN 2020). The CKD-EPI equation should not be used for patients with unstable renal function and has not been validated in children and those over 70. Current interpretive data was last reviewed 2020. Blood 12/11/2024 4:21 AM CDT 12/11/2024 4:51 AM CDT Artie Jackson DO LAB BLOOD ORDERABLES Final Resul t Performing Organization Address City/[facility]/ZIP Co de Phone Number [place] [address] [place] [address] * Differential, auto (12/11/2024 4:21 AM CDT) Pathologist [facility] Neutrophil abs 5.60 1.50 - 6.50 K/cumm Imm gran abs 0.05 0.00 - 0.10 K/cumm [facility] Lymphocyte abs 2.57 0.80 - 3.30 K/cumm [facility] Monocyte abs 0.70 0.20 - 0.80 K/cumm [facility] Eosinophil abs 0.12 0.00 - 0.50 K/cumm [facility] Basophil abs 0.05 0.00 - 0.10 K/cumm [facility] Neutrophil pct 61.5 % [facility] Comment: Interpretive Data Percent cell count reference ranges are not reported, since discordance with absolute values may lead to misinterpretation of CBC data. Current Interpretive Data was last revised on 2017. Imm gran pct 0.6 % [facility] Comment: Interpretive Data Percent cell count reference ranges are not reported, since discordance with absolute values may lead to misinterpretation of CBC data. Current Interpretive Data was last revised on 2017. Lymphocyte pct 28.3 % [facility] Comment: Interpretive Data Percent cell count reference ranges are not reported, since discordance with absolute values may lead to misinterpretation of CBC data. Current Interpretive Data was last revised on 2017. Monocyte pct 7.7 % [facility] Comment: Interpretive Data Percent cell count reference ranges are not reported, since discordance with absolute values may lead to misinterpretation of CBC data. Current Interpretive Data was last revised on 2017. Eosinophil pct 1.3 % [facility] Comment: Interpretive Data Percent cell count reference ranges are not reported, since discordance with absolute values may lead to misinterpretation of CBC data. Current Interpretive Data was last revised on 2017. Basophil pct 0.6 % [facility] Comment: Interpretive Data Percent cell count reference ranges are not reported, since discordance with absolute values may lead to misinterpretation of CBC data. Current Interpretive Data was last revised on 2017. Blood 12/11/2024 4:21 AM CDT 12/11/2024 4:51 AM CDT us Artie Jackson DO LAB BLOOD ORDERABLES Final Resul t [place] [address] [facility] [place] [address] * (ABNORMAL) CBC with auto differential (12/11/2024 4:21 AM CDT) WBC 9.09 3.80 - 9.90 K/cumm Hgb 14.3 13.0 - 17.5 g/dL [facility] Hct 40.0 38.9 - 50.3 % [facility] Plt 278 150 - 400 K/cumm [facility] MPV 9.5 9.1 - 12.3 fL [facility] RBC 4.65 4.30 - 5.80 M/cumm [facility] MCV 86.0 81.3 - 96.4 fL [facility] MCH 30.8 27.1 - 33.3 pg [facility] MCHC 35.8(H) 32.3 - 35.7 g/dL [facility] RDW CV 13.1 11.1 - 14.9 % [facility] RDW SD 40.3 35.7 - 48.1 fL [facility] NRBC abs 0.00 0.00 - 0.01 K/cumm [facility] Blood 12/11/2024 4:21 AM CDT 12/11/2024 4:51 AM CDT [facility] LAB BLOOD ORDERABLES Final Resul t Performing Organization Address [facility] de Phone Number [address] [place] [address] * Thyroid peroxidase antibody (TPO) (12/11/2024 4:21 AM CDT) Pathologist [facility] Anti Thyroid Peroxidase <30 <=34 IUnits/mL Comment: ATPO Interpretive Data Results may be up to 28% higher in patients receiving Itraconazole. Current interpretive data was last revised 2020. Testing performed by: [facility], [address] [place] [address] Blood 12/11/2024 4:21 AM CDT 12/11/2024 7:06 AM CDT [facility] LAB BLOOD ORDERABLES Final Resul t Performing Organization Address City/[facility] Co de Phone Number [address] [place] [address] * TSH (12/11/2024 4:21 AM CDT) Thyroid Stimulating Hormone 3.16 0.30 - 4.20 mcIUnit/mL Blood 12/11/2024 4:21 AM CDT 12/11/2024 4:51 AM CDT [facility] LAB BLOOD ORDERABLES Final Resul t Performing Organization Address City/[facility] Co de Phone Number [address] [place] [address] * T4, free (12/11/2024 4:21 AM CDT) [facility] Free T4 1.49 0.90 - 1.70 ng/dL Blood 12/11/2024 4:21 AM CDT 12/11/2024 4:51 AM CDT [facility] LAB BLOOD ORDERABLES Final Resul t Performing Organization Address [facility] de Phone Number [address] [address] * (ABNORMAL) Basic metabolic panel (12/11/2024 4:21 AM CDT) [facility] Sodium 136 135 - 145 mmol/L Potassium, pl 3.6 3.3 - 4.9 mmol/L [facility] Chloride 103 97 - 110 mmol/L [facility] CO2 26 22 - 32 mmol/L [facility] Anion gap 7 2 - 15 mmol/L [facility] BUN 11 6 - 25 mg/dL [facility] Creatinine 0.76(L) 0.80 - 1.30 mg/dL [facility] Glucose 125 70 - 199 mg/dL [facility] Comment: Interpretive Data Fasting glucose >/= 126 mg/dl is diagnostic for diabetes. Fasting is defined as no caloric intake for at least 8 hours. Fasting glucose between 100 mg/dl to 125 mg/dl is diagnostic of prediabetes. In a patient with classic symptoms of hyperglycemia or hyperglycemic crisis, a random glucose >/= 200 mg/dl is diagnostic for diabetes. In the absence of unequivocal hyperglycemia, results should be confirmed by repeat testing. The classification and Diagnosis of Diabetes Diabetes Care 202; 46: S19-S40. Current interpretive data was last revised 2022. Calcium 8.9 8.5 - 10.3 mg/dL [facility] Blood 12/11/2024 4:21 AM CDT 12/11/2024 4:51 AM CDT [facility] BLOOD ORDERABLES Final Resul t Performing Organization Address [facility] Co de Phone Number [address] [place] [address] * POCT glucose (12/11/2024 3:53 AM CDT) Glucose, POC 121 70 - 199 mg/dL Glucose comment 1 Will Repeat Test [facility] Glucose comment 2 RN/MD Notified [facility] Blood 12/11/2024 3:53 AM CDT 12/11/2024 3:53 AM CDT [facility] POCT ORDERABLES - DEVICE Fin al Result Performing Organization Address [facility] de Phone Number [address] [employer] [place] [address] * POCT glucose (12/10/2024 11:50 PM CDT) Glucose, POC 185 70 - 199 mg/dL Glucose comment 1 Will Repeat Test [facility] Glucose comment 2 RN/MD Notified [facility] Blood 12/10/2024 11:5 0 PM CDT 12/10/2024 11:50 PM CDT [facility] POCT ORDERABLES - DEVICE Fin al Result Performing Organization Address [facility] de Phone Number [address] [place] [address] * (ABNORMAL) Urinalysis reflex to microscopic (12/10/2024 8:35 PM CDT) Color, ur Straw Yellow Clarity, ur Clear Clear [facility] Specific gravity, ur 1.004 1.003 - 1.030 [facility] pH, urine 5.5 [facility] Comment: Interpretive Data U rine pH is affected by diet, medications, systemic acid-base disturbances, and renal tubular function. pH may affect urinary stone formation. For example, urine pH below 6.0 may help reduce the tendency for calcium phosphate stones and pH greater than 6.0 may reduce the tendency for uric acid stone formation. Source: [facility] Current Interpretive Data was last revised on 2017 Protein, ur ql Negative Negative [facility] Glucose, ur ql 3+(A) Negative [facility] Ketones, ur Trace Negative [facility] Bilirubin, ur Negative Negative [facility] Blood, ur Negative Negative [facility] Urobilinogen, ur <2.0 <2.0 mg/dL [facility] Nitrite, ur Negative Negative [facility] Leukocyte esterase, ur Negative Negative [facility] UA reflex comment Reflex conditions for microscopic UA not met. [facility] Urine 12/10/2024 8:35 PM CDT 12/10/2024 8:[address] [facility] URINE ORDERABLES Final Resul t Performing Organization Address [facility] de Phone Number [address] [place] [address] * Sodium, urine, random (12/10/2024 8:35 PM CDT) Sodium, ur 25 mmol/L Comment: Interpretive Data No reference range established. Current interpretive data was last revised 2018. Urine 12/10/2024 8:35 PM CDT 12/10/2024 8:[address] [facility] URINE ORDERABLES Final Resul t Performing Organization Address City/[facility] Co de Phone Number [address] [place] [address] * (ABNORMAL) Osmolality, urine (12/10/2024 8:35 PM CDT) Pathologist [facility] Osmo, ur 182(L) 300 - 800 mOsm/kg Urine 12/10/2024 8:35 PM CDT 12/10/2024 8:40 PM CDT [facility] URINE ORDERABLES Final Resul t Performing Organization Address [facility] Co de Phone Number [address] [place] [address] * POCT glucose (12/10/2024 8:13 PM CDT) [facility] Glucose, POC 194 70 - 199 mg/dL Glucose comment 1 Will Repeat Test [facility] Glucose comment 2 RN/MD Notified [facility] Blood 12/10/2024 8:13 PM CDT 12/10/2024 8:13 PM CDT [facility] POCT ORDERABLES - DEVICE Fin al Result Performing Organization Address [facility] de Phone Number [address] [place] [address] * POCT glucose (12/10/2024 6:47 PM CDT) [facility] Glucose, POC 175 70 - 199 mg/dL Glucose comment 1 Follow Protocol [facility] Glucose comment 2 RN/MD Notified [facility] Blood 12/10/2024 6:47 PM CDT 12/10/2024 6:47 PM CDT [facility] POCT ORDERABLES - DEVICE Fin al Result Performing Organization Address [facility] de Phone Number [address] [place] [address] * XR Abdomen Ap 1 Vw (12/10/2024 5:35 PM CDT) Anatomical Region Laterality Modality Body, Abdomen N/A Computed Radiogr aphy 12/10/2024 7:42 PM CDT Narrative 12/10/2024 7:44 PM CDT EXAM DESCRIPTION: XR ABDOMEN AP 1 VIEW REASON FOR STUDY: abdominal pain with cramps Abdominal cramping for 4 days. Nausea. TECHNIQUE: 2 radiographic view(s) of the abdomen . COMPARISON: None FINDINGS: Nonobstructive bowel gas pattern. No suspicious calcification. No free air. IMPRESSION: No acute abnormality. THIS IS AN ELECTRONICALLY VERIFIED FINAL REPORT 12/10/2024 7:44 PM - Electronically signed by Nicol Schafer M.D. FT T: Report ID: [id number] Reading Location: [place] [address] Procedure Note Nicol Harris MD - 12/10/2024 EXAM DESCRIPTION: XR ABDOMEN AP 1 VIEW REASON FOR STUDY: abdominal pain with cramps Abdominal cramping for 4 days. Nausea. TECHNIQUE: 2 radiographic view(s) of the abdomen . COMPARISON: None FINDINGS: Nonobstructive bowel gas pattern. No suspiciouscalcification. No free air. IMPRESSION: No acute abnormality. THIS IS AN ELECTRONICALLY VERIFIED FINAL REPORT 12/10/2024 7:44 PM - Electronically signed by Nicol Schafer M.D. FT T: Report ID: [id number] Reading Location: [place] [address] [facility] XR PROCEDURES Final Result * eGFR (12/10/2024 4:50 PM CDT) eGFR >90 >=60 mL/min/1. 73 m2 Comment: Interpretive Data Reference Interval Normal >/= 90 mL/min/1.73m2 Mildly decreased* 60 - 89 mL/min/1.73m2 Mildly to moderately decreased 45 - 59 mL/min/1.73m2 Moderately to severely decreased 30 - 44 mL/min/1.73m2 Severely decreased 15 - 29 mL/min/1.73m2 Kidney Failure < 15 mL/min/1.73m2 *Relative to young adult level Estimated glomerular filtration rate is determined by the 2020 CKD-EPI equation recommended by the National Kidney Foundation (A Unifying Approach to GFR Estimation: Recommendations of the NKF-ASK Task Force on Reassessing the Inclusion of Race in Diagnosing Kidney Disease, JASN 202). The CKD-EPI equation should not be used for patients with unstable renal function and has not been validated in children and those over 70. Current interpretive data was last reviewed 2020. Blood 12/10/2024 4:50 PM CDT 12/10/2024 4:53 PM CDT us Artie Manuel LAB BLOOD ORDERABLES Final Resul t [facility] [id number] [facility] Department [place] [address] * Differential, auto (12/10/2024 4:50 PM CDT) Neutrophil abs 5.32 1.50 - 6.50 K/cumm Imm gran abs 0.04 0.00 - 0.10 K/cumm [facility] Lymphocyte abs 2.61 0.80 - 3.30 K/cumm [facility] Monocyte abs 0.55 0.20 - 0.80 K/cumm [facility] Eosinophil abs 0.09 0.00 - 0.50 K/cumm [facility] Basophil abs 0.04 0.00 - 0.10 K/cumm [facility] Neutrophil pct 61.4 % [facility] Comment: Interpretive Data Percent cell count reference ranges are not reported, since discordance with absolute values may lead to misinterpretation of CBC data. Current Interpretive Data was last revised on 2017. Imm gran pct 0.5 % [facility] Comment: Interpretive Data Percent cell count reference ranges are not reported, since discordance with absolute values may lead to misinterpretation of CBC data. Current Interpretive Data was last revised on 2017. Lymphocyte pct 30.2 % [facility] Comment: Interpretive Data Percent cell count reference ranges are not reported, since discordance with absolute values may lead to misinterpretation of CBC data. Current Interpretive Data was last revised on 2017. Monocyte pct 6.4 % [facility] Comment: Interpretive Data Percent cell count reference ranges are not reported, since discordance with absolute values may lead to misinterpretation of CBC data. Current Interpretive Data was last revised on 2017. Eosinophil pct 1.0 % [facility] Comment: Interpretive Data Percent cell count reference ranges are not reported, since discordance with absolute values may lead to misinterpretation of CBC data. Current Interpretive Data was last revised on 2017. Basophil pct 0.5 % [facility] Comment: Interpretive Data Percent cell count reference ranges are not reported, since discordance with absolute values may lead to misinterpretation of CBC data. Current Interpretive Data was last revised on 2017. Blood 12/10/2024 4:50 PM CDT 12/10/2024 4:53 PM CDT [facility] BLOOD ORDERABLES Final Resul t Performing Organization Address [facility] Co de Phone Number [address] [place] [address] * (ABNORMAL) Thyroid Function [place] (12/10/2024 4:50 PM CDT) Pathologist [facility] TSH 284.00(H) 0.30 - 4.20 mcIUnit/mL Blood 12/10/2024 4:50 PM CDT 12/10/2024 4:53 PM CDT [facility] BLOOD ORDERABLES Edited Resu lt - Final Performing Organization Address City/[facility]/ZIP Co de Phone Number [address] [place] [address] * (ABNORMAL) CBC with auto differential (12/10/2024 4:50 PM CDT) WBC 8.65 3.80 - 9.90 K/cumm Hgb 15.6 13.0 - 17.5 g/dL [facility] Hct 43.2 38.9 - 50.3 % [facility] Plt 266 150 - 400 K/cumm [facility] MPV 9.1 9.1 - 12.3 fL [facility] RBC 5.02 4.30 - 5.80 M/cumm [facility] MCV 86.1 81.3 - 96.4 fL [facility] MCH 31.1 27.1 - 33.3 pg [facility] MCHC 36.1(H) 32.3 - 35.7 g/dL [facility] RDW CV 12.9 11.1 - 14.9 % [facility] RDW SD 39.8 35.7 - 48.1 fL [facility] NRBC abs 0.00 0.00 - 0.01 K/cumm [facility] Blood 12/10/2024 4:50 PM CDT 12/10/2024 4:53 PM CDT [facility] BLOOD ORDERABLES Final Resul t Performing Organization Address [facility] de Phone Number [address] [place] [address] * T4, free (12/10/2024 4:50 PM CDT) Free T4 1.45 0.90 - 1.70 ng/dL Blood 12/10/2024 4:50 PM CDT 12/10/2024 4:53 PM CDT Narrative [facility] - 12/10/2024 6:08 PM CDT This test was reflexed from a TSH result. [facility] BLOOD ORDERABLES Final Resul t Performing Organization Address [facility] de Phone Number [address] [place] [address] * Phosphorus (12/10/2024 4:50 PM CDT) Phosphorus, pl 3.3 2.3 - 4.5 mg/dL Blood 12/10/2024 4:50 PM CDT 12/10/2024 4:53 PM CDT [facility] BLOOD ORDERABLES Final Resul t Performing Organization Address [facility] de Phone Number [facility] [place] [address] * Osmolality, blood (12/10/2024 4:50 PM CDT) Osmo 284 275 - 295 mOsm/kg Blood 12/10/2024 4:50 PM CDT 12/10/2024 4:53 PM CDT [facility] BLOOD ORDERABLES Final Resul t Performing Organization Address [facility] de Phone Number [address] [place] [address] * Magnesium (12/10/2024 4:50 PM CDT) Pathologist [facility] Magnesium 1.7 1.4 - 2.5 mg/dL Blood 12/10/2024 4:50 PM CDT 12/10/2024 4:53 PM CDT [facility] Manuel DO LAB BLOOD ORDERABLES Final Resul t Performing Organization Address [facility] Phone Number [address] [address] * (ABNORMAL) Hemoglobin A1c (12/10/2024 4:50 PM CDT) Hgb A1C 11.2(H) 4.0 - 5.6 % Estimated Average Glucose 275 mg/dL [place] Comment: The ADA recommends reporting an estimated Average Glucose (eAG) with all Hemoglobin A1c results using the equation derived from a study of 507 normal and diabetic adults. Minority populations were underrepresented and children were not included. (Diabetes Care 31:6649-9206, 2008). The eAG is not equivalent to a fasting glucose. Blood 12/10/2024 4:50 PM CDT 12/10/2024 4:53 PM CDT [employer] LAB BLOOD ORDERABLES Final Resul t Performing Organization Address [facility]/ZIP Co de Phone Number [facility] [address] [facility] Department [place] [address] * (ABNORMAL) Comprehensive metabolic panel (12/10/2024 4:50 PM CDT) Sodium 133(L) 135 - 145 mmol/L Potassium, pl 4.0 3.3 - 4.9 mmol/L [facility] Comment:Hemolyzed; Potassium value may be falsely elevated by as much as 1.0 mmol/L. Suggest redraw and reanalysis. Chloride 100 97 - 110 mmol/L [facility] CO2 22 22 - 32 mmol/L [facility] Anion gap 11 2 - 15 mmol/L [facility] BUN 12 6 - 25 mg/dL [facility] Creatinine 0.71(L) 0.80 - 1.30 mg/dL [facility] Glucose 153 70 - 199 mg/dL [facility] Comment: Interpretive Data Fasting glucose >/= 126 mg/dl is diagnostic for diabetes. Fasting is defined as no caloric intake for at least 8 hours. Fasting glucose between 100 mg/dl to 125 mg/dl is diagnostic of prediabetes. In a patient with classic symptoms of hyperglycemia or hyperglycemic crisis, a random glucose >/= 200 mg/dl is diagnostic for diabetes. In the absence of unequivocal hyperglycemia, results should be confirmed by repeat testing. The classification and Diagnosis of Diabetes Diabetes Care 202; 46: S19-S40. Current interpretive data was last revised 2022. Calcium 8.8 8.5 - 10.3 mg/dL [facility] Bilirubin, total 0.7 0.1 - 1.2 mg/dL [facility] Protein, pl 6.0(L) 6.5 - 8.5 g/dL [facility] Albumin 3.9 3.5 - 5.0 g/dL [facility] Alk phos 60 40 - 130 Units/L [facility] ALT 38 7 - 55 Units/L [facility] AST 33 10 - 50 Units/L [facility] Blood 12/10/2024 4:50 PM CDT 12/10/2024 4:53 PM CDT Artie Jackson DO LAB BLOOD ORDERABLES Final Resul t Performing Organization Address City/[facility] Co de Phone Number [address] [place] [address] * POCT glucose (12/10/2024 4:42 PM CDT) Glucose, POC 124 70 - 199 mg/dL Blood 12/10/2024 4:42 PM CDT 12/10/2024 4:42 PM CDT Artie Manuel DO LAB POCT ORDERABLES - DEVICE Fin al Result Performing Organization Address [facility] de Phone Number [address] [address] * ECG 12 lead (12/10/2024 3:37 PM CDT) [facility] Ventricular Rate EKG/Min 80 BPM [facility] Atrial Rate 80 BPM [facility] CA-Interval (MSEC) 182 ms [facility] QRS-Interval (MSEC) 86 ms [facility] QT-Interval (MSEC) 404 ms [facility] QTc 465 ms [facility] P [place] 42 degrees [facility] R [place] -23 degrees [facility] T [place] 35 degrees [facility] Diagnosis Normal sinus rhythm Incomplete right bundle branch block No previous ECGs available Confirmed by SULTAN SHAH M.D. ([id number]) on 12/11/2024 2:28:01 PM [facility] 12/10/2024 3:37 PM CDT 12/11/2024 2:28 PM CDT Vimal Cruz DO ECG ORDERABLES Final Result Performing Organization Address [facility] de Phone Number [facility] * (ABNORMAL) Urinalysis reflex to microscopic and culture Urine (12/10/2024 10:56 AM CDT) Color, ur Yellow Yellow Clarity, ur Clear Clear [place] Specific gravity, ur 1.014 1.003 - 1.030 [place] pH, urine 5.5 [place] Comment: Interpretive Data U rine pH is affected by diet, medications, systemic acid-base disturbances, and renal tubular function. pH may affect urinary stone formation. For example, urine pH below 6.0 may help reduce the tendency for calcium phosphate stones and pH greater than 6.0 may reduce the tendency for uric acid stone formation. Source: [facility] Current Interpretive Data was last revised on 2017 Protein, ur ql Negative Negative [facility] Glucose, ur ql 3+(A) Negative [facility] Ketones, ur 1+(A) Negative [facility] Bilirubin, ur Negative Negative [facility] Blood, ur Negative Negative [facility] Urobilinogen, ur <2.0 <2.0 mg/dL [facility] Nitrite, ur Negative Negative [facility] Leukocyte esterase, ur Negative Negative [facility] UA reflex comment Reflex conditions for microscopic UA and culture not met. [facility] Urine 12/10/2024 10:5 6 AM CDT 12/10/2024 10:58 AM CDT Vimal Cruz DO LAB MICROBIOLOGY - GENERAL ORD ERABLES Final Result [place] [address] [facility] Department of Laboratories [place], [place] [id number] * eGFR (12/10/2024 10:52 AM CDT) eGFR >90 >=60 mL/min/1. 73 m2 Comment: Interpretive Data Reference Interval Normal >/= 90 mL/min/1.73m2 Mildly decreased* 60 - 89 mL/min/1.73m2 Mildly to moderately decreased 45 - 59 mL/min/1.73m2 Moderately to severely decreased 30 - 44 mL/min/1.73m2 Severely decreased 15 - 29 mL/min/1.73m2 Kidney Failure < 15 mL/min/1.73m2 *Relative to young adult level Estimated glomerular filtration rate is determined by the 2020 CKD-EPI equation recommended by the National Kidney Foundation (A Unifying Approach to GFR Estimation: Recommendations of the NKF-ASK Task Force on Reassessing the Inclusion of Race in Diagnosing Kidney Disease, JASN 2020). The CKD-EPI equation should not be used for patients with unstable renal function and has not been validated in children and those over 70. Current interpretive data was last reviewed 2020. Blood 12/10/2024 10:5 2 AM CDT 12/10/2024 10:56 AM CDT us Vimal HuiAsif Cruz DO LAB BLOOD ORDERABLES Final Res ult [facility] [address] [facility] Department [place] [address] * (ABNORMAL) Differential, auto (12/10/2024 10:52 AM CDT) Neutrophil abs 6.96(H) 1.50 - 6.50 K/cumm Imm gran abs 0.05 0.00 - 0.10 K/cumm [facility] Lymphocyte abs 2.70 0.80 - 3.30 K/cumm [facility] Monocyte abs 0.63 0.20 - 0.80 K/cumm [facility] Eosinophil abs 0.10 0.00 - 0.50 K/cumm [facility] Basophil abs 0.04 0.00 - 0.10 K/cumm [facility] Neutrophil pct 66.3 % [facility] Comment: Interpretive Data Percent cell count reference ranges are not reported, since discordance with absolute values may lead to misinterpretation of CBC data. Current Interpretive Data was last revised on 2017. Imm gran pct 0.5 % [facility] Comment: Interpretive Data Percent cell count reference ranges are not reported, since discordance with absolute values may lead to misinterpretation of CBC data. Current Interpretive Data was last revised on 2017. Lymphocyte pct 25.8 % [facility] Comment: Interpretive Data Percent cell count reference ranges are not reported, since discordance with absolute values may lead to misinterpretation of CBC data. Current Interpretive Data was last revised on 2017. Monocyte pct 6.0 % [facility] Comment: Interpretive Data Percent cell count reference ranges are not reported, since discordance with absolute values may lead to misinterpretation of CBC data. Current Interpretive Data was last revised on 2017. Eosinophil pct 1.0 % [facility] Comment: Interpretive Data Percent cell count reference ranges are not reported, since discordance with absolute values may lead to misinterpretation of CBC data. Current Interpretive Data was last revised on 2017. Basophil pct 0.4 % [facility] Comment: Interpretive Data Percent cell count reference ranges are not reported, since discordance with absolute values may lead to misinterpretation of CBC data. Current Interpretive Data was last revised on 2017. Blood 12/10/2024 10:5 2 AM CDT 12/10/2024 10:56 AM CDT Vimal Cruz DO LAB BLOOD ORDERABLES Final Res ult Performing Organization Address City/[facility] Co de Phone Number [facility] [address] [facility] Department [place] [address] * (ABNORMAL) CBC with auto differential (12/10/2024 10:52 AM CDT) WBC 10.48(H) 3.80 - 9.90 K/cumm Hgb 16.5 13.0 - 17.5 g/dL [facility] Hct 45.9 38.9 - 50.3 % [facility] Plt 317 150 - 400 K/cumm [facility] MPV 9.2 9.1 - 12.3 fL [facility] RBC 5.31 4.30 - 5.80 M/cumm [facility] MCV 86.4 81.3 - 96.4 fL [facility] MCH 31.1 27.1 - 33.3 pg [facility] MCHC 35.9(H) 32.3 - 35.7 g/dL [facility] RDW CV 12.9 11.1 - 14.9 % [facility] RDW SD 40.1 35.7 - 48.1 fL [facility] NRBC abs 0.00 0.00 - 0.01 K/cumm [facility] Blood Venous blood specimen / Unknown 12/10/2024 10:52 AM CDT 12/10/2024 10:56 AM CDT us Vimal Cruz DO LAB BLOOD ORDERABLES Final Res ult Performing Organization Address [facility]/ZIP Co de Phone Number [address] [place] [address] * Lipase (12/10/2024 10:52 AM CDT) [facility] Lipase 14 10 - 99 Units/L Blood Venous blood specimen / Unknown 12/10/2024 10:52 AM CDT 12/10/2024 10:56 AM CDT Vimal Cruz DO LAB BLOOD ORDERABLES Final Res ult Performing Organization Address [facility] Co de Phone Number [address] [address] * (ABNORMAL) Comprehensive metabolic panel (12/10/2024 10:52 AM CDT) [facility] Sodium 129(L) 135 - 145 mmol/L Potassium, pl 4.0 3.3 - 4.9 mmol/L [facility] Chloride 94(L) 97 - 110 mmol/L [facility] CO2 25 22 - 32 mmol/L [facility] Anion gap 10 2 - 15 mmol/L [facility] BUN 13 6 - 25 mg/dL [facility] Creatinine 0.83 0.80 - 1.30 mg/dL [facility] Glucose 193 70 - 199 mg/dL [facility] Comment: Interpretive Data Fasting glucose >/= 126 mg/dl is diagnostic for diabetes. Fasting is defined as no caloric intake for at least 8 hours. Fasting glucose between 100 mg/dl to 125 mg/dl is diagnostic of prediabetes. In a patient with classic symptoms of hyperglycemia or hyperglycemic crisis, a random glucose >/= 200 mg/dl is diagnostic for diabetes. In the absence of unequivocal hyperglycemia, results should be confirmed by repeat testing. The classification and Diagnosis of Diabetes Diabetes Care 2021; 46: S19-S40. Current interpretive data was last revised 2022. Calcium 9.5 8.5 - 10.3 mg/dL [facility] Bilirubin, total 0.8 0.1 - 1.2 mg/dL [facility] Protein, pl 6.6 6.5 - 8.5 g/dL [facility] Albumin 4.3 3.5 - 5.0 g/dL [facility] Alk phos 68 40 - 130 Units/L [facility] ALT 39 7 - 55 Units/L [facility] AST 29 10 - 50 Units/[facility] Blood 12/10/2024 10:5 2 AM CDT 12/10/2024 10:56 AM CDT us Vimal Cruz DO LAB BLOOD ORDERABLES Final Res ult [place] [facility] [address] [facility] Department [place] [address] * XR Shoulder Right 2 or More Views (11/27/2024 11:16 AM CDT) Anatomical Region Laterality Modality Upper Extremities, Shoulder Right Comp uted Radiography 11/27/2024 12:2 1 PM CDT Impressions 11/27/2024 12:21 PM CDT Progressive moderate right glenohumeral osteoarthritis and rotator cuff arthropathy. Electronically signed by: Inocente Hernandez M.D. Narrative 11/27/2024 12:21 PM CDT XR SHOULDER RIGHT 2 OR MORE VIEWS HISTORY: Right shoulder pain. FINDINGS: 4 views of the right shoulder are obtained and compared with 08/18/2018. There is no fracture or dislocation. There is progressive moderate glenohumeral osteoarthritis with intra-articular loose bodies and superior humeral head translation abutting the acromial undersurface. Mild acromial clavicular osteoarthritis. Procedure Note Inocente Hernandez MD - 11/27/2024 XR SHOULDER RIGHT 2 OR MORE VIEWS HISTORY: Right shoulder pain. FINDINGS: 4 views of the right shoulder are obtained and compared with 08/18/2018. There is no fracture or dislocation. There is progressive moderate glenohumeral osteoarthritis with intra-articular loose bodies and superior humeral head translation abutting the acromial undersurface. Mild acromial clavicular osteoarthritis. IMPRESSION: Progressive moderate right glenohumeral osteoarthritis and rotator cuff arthropathy. Electronically signed by: Inocente Hernandez M.D. Narciso GONZALEZ IMG XR PROCEDURES Final Result * (ABNORMAL) Albumin Creatinine Ratio, Urine (11/14/2024 11:20 AM CDT) Pathologist [facility] Albumin Ur 49.4 mg/L Comment: Interpretive Data No reference range established. Current interpretive data was last revised 2018. Creatinine Ur 92.9 mg/dL [place] Comment: Interpretive Data No reference range established. Current interpretive data was last revised 2018. Albumin Creatinine Ratio, Ur 53(H) 1 - 29 mg/g [place] Urine 11/14/2024 11:2 0 AM CDT 11/14/2024 4:15 PM CDT Result [facility] Fabiana Lopez LAB URINE ORDERABLES Fin al Result [place] [id number] [facility] Department [place] [address] * Diabetic Eye Exam (05/22/2024) Result [facility] Andrea Calderon MD HEALTH MAINTENANCE Final Result * PSA screen (11/03/2023 1:13 PM CDT) Pathologist [facility] PSA 1.65 < OR = 4.00 ng/mL [facility] Comment: The total PSA value from [...] LAB BLOOD ORDERABLES Final Re sult [facility] [address] [id number] * Colonoscopy (09/21/2023) Anatomical Region Laterality Modality Other us Historical Provider ENDOSCOPY PROCEDURES [place] l Result from Last 3 Months or Most Recently Relevant to Health Maintenance [place] [address] [facility] [place] [address] [place] [place] [address] [place] [address] Advance Directives For more information, please contact: [phone] * Full Code (Latest Code Status on File) Date Activated Date Inactivated Comments 12/22/2024 5:28 PM 12/25/2024 9:06 PM * Full Code Date Activated Date Inactivated Comments 12/22/2024 9:19 AM 12/22/2024 5:28 PM * Full Code Date Activated Date Inactivated Comments 12/16/2024 4:12 PM 12/22/2024 8:10 AM * Full Code Date Activated Date Inactivated Comments 12/10/2024 4:08 PM 12/11/2024 5:43 PM Care Teams Campus Rep Relationship Specialty Start Date End Date Fabiana Whitney PA [address] [place] [id number] PCP - General Family Medicine 11/14/24 Earl Morris MD [address] [place] [id number] Hospice Home Care Coordinator Gastroenterology 12/11/24
--- OUTSIDE RECORDS SUMMARY | 2025-02-01 12:32 | XMS_ITS | Encounter Summary ---
Author Organization [facility] Healthcare Address [address] [place] [address] Care Team Providers Care Journal Clerk Name Role Phone Fabiana Whitney Primary Care Provider + Earl Morris MD Unavailable Encounter Details Date Type Department Care Team (Late st Contact Info) Description 02/01/2025 Telephone [facility] Family Medicine at [address] [place] [address] Fabiana Whitney PA [address] [place] [address] [address] [place] [address] Social History Tobacco Use Types [...] How often do you attend chur or worship services? Never 12/24/2024 Do you belong to any clubs o r organizations such as restorationist groups, unions, fraternal or athletic groups, or [...] any time in the past 12 m [facility], were you homeless or living in a skilled nursing (including now)? No 12/24/2024 [facility] Utilities Answer Date Recorded In the past [...] on file Legal Sex Male 12:40 AM [employer]ING [employer]IVE[employer] WORK[employer] Gender Identity Not on file Sexual Orientation Not on file documented as of this encounter Plan of Treatment Not on file documented as of this encounter Visit Diagnoses Not on filedocumented in this encounter Care Teams Journal Clerk Relationship Specialty Start Date End Date Fabiana Whitney PA [address] [place] [address] PCP - General Family Medicine 11/14/24 Earl Morris MD [address] [place] [address] Credit Review Analyst Gastroenterology 12/11/24 documented as of this encounter
[2025-02-01 14:02] LABS: Alanine Aminotransferase 35 U/L (6-50); Albumin Level 4.0 g/dL (3.5-5.1); Alkaline Phosphatase 62 U/L (38-126); Aspartate Amino Transferase 34 U/L (17-59); Bilirubin,Total 0.7 mg/dL (0.2-1.3); Total Protein 6.6 g/dL (6.3-8.2)
== END 2025-02-01 12:28 | disposition home or self-care (01) ==
PROVIDERS: PCP Family Medicine
DX: R79.89 Other specified abnormal findings of blood chemistry (principal)
CPT/HCPCS: 36415; 80076